=== PATIENT | male | born 1975 | race Caucasian/White ===

== ENCOUNTER 2016-05-30 05:02 | Inpatient (IN) | payer OTHER ==
[2016-05-10 10:55] LABS: BASO % 0.1 %; BASO ABS # 0.01 K/uL (0-0.2); COMPLETE YES; EOS % 0.8 %; HEMATOCRIT 47.6 % (42-52); IG% 0.3 %; LYMPH % 23.7 %; LYMPH ABS # 1.77 K/uL (1.2-3.4); MEAN CELL VOLUME 91.9 fL (80-100); MEAN CORPUSCULAR HGB CONC 35.9 g/dl (32-36); MEAN PLATELET VOLUME 11.1 fL (7.4-10.4); MONO % 8.8 %; NEUT % 66.3 %; PLATELET COUNT 244 K/uL (130-400); RED BLOOD COUNT 5.18 M/uL (4.7-6.1); WHITE BLOOD COUNT 7.48 K/uL (4.8-10.8)
[2016-05-18 10:12] VITALS: BMI 29.0
--- NOTE | 2016-05-26 12:19 | HISTORY & PHYSICAL EXAMINATION ---
DATE OF ADMISSION: 05/30/2016 He is being brought for surgery at [facility] 05/30/2016, posterior lumbar interbody fusion at L5-S1. CHIEF COMPLAINT: Back pain, lower extremity difficulty, neurologic issues, pain to the back and lower extremity, numbness and tingling as well. He demonstrated degenerative segment lumbar spine, disc herniation lumbar spine, all at the L5-S1 segment. He is being set up for elective surgery, posterior lumbar interbody fusion L5-S1. MEDICAL HISTORY: Negative for kidney disease, liver disease, hepatitis. No history of carcinoma. No difficulty with anesthesia. No obesity, hiatal hernia, acid reflux. No hypertension, COPD, diabetes mellitus or carcinoma. SURGERIES: Include left knee surgery. ALLERGIES: Negative. MEDICATIONS: Lisinopril and atorvastatin 20 mg. SOCIAL HISTORY: Minimal alcohol. No cigarette smoking. No illegal drug use. REVIEW OF SYSTEMS: Denies any blurred vision, double vision, tinnitus, vertigo, mentation issues. Denies chest pain or angina. Denies wheezing or shortness of breath. No nausea or vomiting. No bowel or bladder incontinence, urgency, frequency. He admits to back and lower extremity difficulty, mechanical in nature. OBJECTIVE EXAMINATION: GENERAL: He is alert, oriented. VITAL SIGNS: Blood pressure 130/80, pulse of 80, respiration rate 16, temperature 97.4. HEENT: Pupils react to light and accommodation. Ear, nose and throat clear. CARDIAC: Normal S1, S2. No S3. LUNGS: Clear to auscultation. NEUROLOGIC: Intact. Slight loss of sensation, but no gross motor loss. Reflex examination essentially normal. Images reviewed. He has severely degenerative segment L5-S1. He has loss of lordosis. There are some minor instability patterns, loss of good facet joints, plus a disc herniation on his MRI scan. PLAN: Includes posterior lumbar interbody fusion at L5-S1. I think the surgery will take about 2 hours. He will be in the hospital approximately 48 hours.
[2016-05-30] VITALS (11 sets, daily range): BP systolic 105–146; BP diastolic 60–85; PULSE 67–92; TEMP 36.4–36.9; O2SAT 94–98; Ht 180.3 cm; Wt 94.5 kg
[~2016-05-30] VITALS: Ht 180.3 cm; Wt 94.5 kg
[~2016-05-30 05:02] MED LIST: ATOR-22 PO; HYDR-5688 PO; LISI-791 PO; NAPR1TAB9 PO
[2016-05-30] MEDS ORDERED: LACTATED RINGER'S 1000ML 1,000 ML IV SCH (06:00)
[2016-05-30] MEDS ORDERED: CEFAZOLIN 2000 MG/60 ML D5W 60 ML IV SCH (06:00)
[2016-05-30] MEDS ORDERED: NSS 1000ML IV SCH (06:00)
[2016-05-30 06:20] LABS: BUN/CREATININE RATIO 10.8 (10-20); CALCIUM 8.9 mg/dl (8.5-10.1); CREATININE 1.4 mg/dl (0.60-1.40); POTASSIUM 3.8 mmol/L (3.5-5.1)
[2016-05-30] MEDS ORDERED: ROCURONIUM BROMIDE 10 MG/ML 5 ML VIAL ONE ×2 (06:39→08:04)
[2016-05-30] MEDS ORDERED: DEXAMETHASONE SOD INJ 4 MG/ML VIAL ONE (06:39)
[2016-05-30] MEDS ORDERED: ONDANSETRON INJ 2 MG/ML 2 ML VIAL ONE (06:39)
[2016-05-30] MEDS ORDERED: PROPOFOL IV EMULSION 10 MG/ML 20 ML VIAL IV ONE (06:39)
[2016-05-30] MEDS ORDERED: GLYCOPYRROLATE INJ 0.2 MG/ML VIAL ONE ×2 (06:39→07:59)
[2016-05-30] MEDS ORDERED: MIDAZOLAM HCL 1 MG/ML 2ML VIAL ONE (06:39)
[2016-05-30] MEDS ORDERED: NEOSTIGMINE METHYLSULFATE 5 MG/5 ML SYR ONE (06:39)
[2016-05-30] MEDS ORDERED: FENTANYL CITRATE INJ 50 MCG/1 ML 2 ML VIAL ONE ×3 (06:39→08:16)
[2016-05-30] MEDS ORDERED: THROMBIN FOR SOLN 20000 UNIT KIT ONE (06:48)
[2016-05-30] MEDS ORDERED: GELATIN SPONGE SZ 100 ONE (06:48)
[2016-05-30] MEDS ORDERED: BUPIVACAINE/EPINEPHRINE 0.5% MPF 1:200,000 30 ML VIAL ONE (06:49)
[2016-05-30] MEDS ORDERED: BACITRACIN 50000 UNIT VIAL ONE (06:49)
[2016-05-30] MEDS ORDERED: VANCOMYCIN HCL 1000MG/20ML VIAL ONE (06:49)
--- NOTE | 2016-05-30 07:02 | History & Physical Bridge Note ---
H&P Re-Evaluation Bridge Note: I have examined the patient, reviewed the History & Physical and in the interval since the performance of the History & Physical I have noted the following changes of clinical significance: No changes noted
[2016-05-30] MEDS ORDERED: HYDROmorphone INJ 1 MG/ML SYR IV PRN (08:45)
[2016-05-30] MEDS ORDERED: ATROPINE SULFATE 0.1 MG/ML 5ML SYR IV PRN (08:45)
[2016-05-30] MEDS ORDERED: ONDANSETRON INJ 2 MG/ML 2 ML VIAL IV PRN ×2 (08:45→10:15)
[2016-05-30] MEDS ORDERED: EpHEDrine SULFATE INJ 50 MG/ML AMP IV PRN (08:45)
[2016-05-30] MEDS ORDERED: PROMETHAZINE HCL INJ 6.25 MG in SODIUM CHLORIDE 0.9% 50ML 50 ML IV PRN (08:45)
--- NOTE | 2016-05-30 09:50 | DIAGNOSTIC IMAGING REPORT ---
INTRAOPERATIVE FLUOROSCOPIC IMAGES OF THE SPINE CLINICAL HISTORY: L5-S1 FUSION COMPARISON STUDY: MRI of the lumbar spine August 26, 2015. Fluoroscopy time: 3.3 seconds. FINDINGS: 1 fluoroscopic image demonstrates an L5-S1 discectomy with interbody spacer placement. There are pedicle screws at the L5 and S1 levels. Surgical retractors are noted. IMPRESSION: Intraoperative fluoroscopic image demonstrating an L5-S1 discectomy and pedicle screw fusion. Electronically signed by: Arturo Storey M.D. 05/30/2016 9:49 AM Dictated Date/Time: 05/30/2016 9:48 AM
--- NOTE | 2016-05-30 10:02 | [facility] Post Operative Brief Note ---
Immediate Operative Summary Operative Date May 30, 2016. Pre-Operative Diagnosis Disc Herniation, Severely Degenerative Segment L5-S1 Post-Operative Diagnosis Disc Herniation, Severely Degenerative Segment L5-S1 Procedure(s) Performed L5-S1 Decompression, Posterior Lumbar Instrumentation and Interbody Fusion Surgeon Dr. Huston Wire Harness Assembler Surgeon(s) MEG Dejesus Estimated Blood Loss 200 ml Findings as above Specimens none per surgeon Complication(s) None Disposition Recovery Room / PACU
[2016-05-30] MEDS ORDERED: SODIUM CHLORIDE 0.9% 1000ML 1,000 ML IV SCH (10:03)
[2016-05-30] MEDS ORDERED: MEPERIDINE HCL 25 MG/ML CARP ONE (10:08)
[2016-05-30] MEDS ORDERED: HYDROmorphone HCL 0.5MG/ML 50 ML CASSETTE ONE (10:13)
[2016-05-30] MEDS ORDERED: NALOXONE HCL 0.4 MG/1 ML VIAL/CARP IV PRN (10:15)
[2016-05-30] MEDS ORDERED: NAPROXEN PO SCH (10:15)
[2016-05-30] MEDS ORDERED: METOCLOPRAMIDE HCL INJ 5 MG/ML 2 ML VIAL IV PRN (10:15)
[2016-05-30] MEDS ORDERED: LORAZEPAM INJ 1 MG in SYRINGE 0 ML IV PRN (10:15)
[2016-05-30] MEDS: FENTANYL CITRATE INJ 50 MCG/1 ML 2 ML VIAL IV PRN ×4 (10:15→10:38)
[2016-05-30] MEDS ORDERED: ACETAMINOPHEN 325 MG TAB PO PRN (10:15)
[2016-05-30] MEDS ORDERED: PROMETHAZINE HCL INJ 12.5 MG in SODIUM CHLORIDE 0.9% 50ML 50 ML IV PRN (10:15)
[2016-05-30] MEDS ORDERED: LORAZEPAM 1 MG TAB PO PRN (10:15)
[2016-05-30] MEDS ORDERED: MAGNESIUM HYDROXIDE SUSP 30 ML UDC PO PRN (10:15)
[2016-05-30] MEDS ORDERED: MEPERIDINE HCL 25 MG/ML CARP IV PRN (10:30)
[2016-05-30 10:40] LABS: HEMATOCRIT 42.9 % (42-52)
--- NOTE | 2016-05-30 11:05 | Anesthesiology Progress Note ---
Anesthesia Post Op Note Date & Time May 30, 2016 at 11:05 Vital Signs Pain Intensity: 5 Vital Signs Past 12 Hours Date Time Temp Pulse Resp B/P Pulse Ox O2 Delivery O2 Flow Rate FiO2 05/30/16 10:55 37.8 68 16 131/71 99 Nasal Cannula 4 05/30/16 10:45 72 12 126/65 97 Nasal Cannula 4 05/30/16 10:35 71 12 131/66 99 Nasal Cannula 4 05/30/16 10:25 71 17 138/66 100 Mask 10 05/30/16 10:15 68 12 131/91 100 Mask 10 05/30/16 10:06 36.1 73 18 110/83 100 Mask 10 05/30/16 05:53 36.8 67 20 146/85 95 Room Air Notes Mental Status: alert / awake / arousable, participated in evaluation Pt Amnestic to Procedure: Yes Nausea / Vomiting: adequately controlled Pain: adequately controlled Airway Patency, RR, SpO2: stable & adequate BP & HR: stable & adequate Hydration State: stable & adequate Anesthetic Complications: no major complications apparent
[2016-05-30] MEDS: HYDROmorphone HCL 0.5MG/ML 50 ML CASSETTE IV PRN ×3 (11:11→23:15)
[2016-05-30] MEDS: SODIUM CHLORIDE 0.9% 1000ML 1,000 ML IV SCH ×2 (12:18→23:59)
[2016-05-30] MEDS: KETOROLAC TROMETHAMINE 30 MG/ML VIAL IV SCH ×2 (12:30→19:08)
--- NOTE | 2016-05-30 13:20 | OPERATIVE REPORT ---
DATE OF OPERATION: 05/30/2016 PREOPERATIVE DIAGNOSES: Degenerative segment, lumbar spine; instability, lumbar spine; and disk herniation, lumbar spine, L5-S1. POSTOPERATIVE DIAGNOSES: Same. PROCEDURES: Include a posterior lumbar spine decompression laminectomy L5-S1 and a posterior lumbar interbody fusion, L5-S1. SURGEON: Dr. Huston. SENIOR ACTUARIAL ANALYST: Yomi Stafford PA-C. COMPLICATIONS: No complications. BLOOD LOSS: 200 mL. We did an instrumented fusion, pedicle screw instrumentation and posterior lumbar interbody fusion at L5-S1. We used Globus implants. DESCRIPTION OF PROCEDURE: The patient was taken to the operating room and general intubated anesthetic provided to the patient, placed prone, prepped and draped sterile. We made a skin incision over the L5-S1 interval, dissecting the soft tissue, putting deep self-retaining retractors with using 3-inch and 2.5-inch retractor blades. We then did a formal decompression of laminectomy of L5, foraminotomy, and partial facetectomy of that segment. We then were able to safely get pedicle screws into the vertebral body of L5 and the sacral region. The fit was excellent. We retracted the dura on the left hand side. We were unsuccessful in getting really into the disk interval at this side. I abandoned this. I went to the right hand side. We carefully retracted the dura. I thought we really get into the disk and really clean out the disk and put an interbody spacer in this area. This was first packed with bone autograft and the intervertebral spacer or cage was 30 mm in length, 7 mm in height and 10 mm in width. We tightened down the construct. Everything was secured. We irrigated thoroughly with about 800 mL of fluid. We bone grafted once again out of the transverse processes and the sacral ala completing the 360 fusion. We closed over vancomycin powder over Hemovac drain with 1 Vicryl, 2-0 and 3-0 nylon on the skin. Sterile dressings applied. The patient was successfully returned to supine position to PACU stable. No apparent complications. I attest to the content of the Intraoperative Record and any orders documented therein. Any exceptio ns are noted below.
[2016-05-30] MEDS: CEFAZOLIN IV 2,000 MG in DEXTROSE 5% 50ML 50 ML IV SCH ×2 (19:08→23:59)
[2016-05-31] MEDS: KETOROLAC TROMETHAMINE 30 MG/ML VIAL IV SCH ×3 (00:33→11:23)
[2016-05-31] MEDS ORDERED: BISACODYL 10 MG SUPP PR PRN (06:00)
[2016-05-31] MEDS ORDERED: BISACODYL 5 MG TABEC PO PRN (06:00)
[2016-05-31] MEDS: HYDROmorphone HCL 0.5MG/ML 50 ML CASSETTE IV PRN (07:05)
[2016-05-31 07:42] VITALS: BP 115/68; PULSE 80; TEMP 36.7; O2SAT 97
--- NOTE | 2016-05-31 07:56 | PROGRESS NOTE ---
DATE: 05/31/2016 SUBJECTIVE: Moderate complaints of pain. Alert and oriented. No chest pain or shortness of breath. OBJECTIVE: Vitals signs are stable, 42.9 hematocrit. ASSESSMENT: Status post lumbar spine fusion one level fusion L5-S1. DISPOSITION: We will get him up and ambulatory today. Get rid of his Fry catheter. Discontinue his PCI pump ____ Tentatively home tomorrow.
[2016-05-31] MEDS ORDERED: OXYCODONE/ACETAMINOPHEN 5-325 TAB PO PRN (08:00)
[2016-05-31] MEDS ORDERED: HYDROmorphone INJ 2 MG/ML SYR/VIAL IV PRN (08:00)
[2016-05-31] MEDS ORDERED: DC PCA SCH (08:00)
[2016-05-31] MEDS ORDERED: HYDROmorphone INJ 1 MG/ML SYR IV PRN (08:00)
[2016-05-31] MEDS: CEFAZOLIN IV 2,000 MG in DEXTROSE 5% 50ML 50 ML IV SCH (08:43)
[2016-05-31] MEDS: ATORVASTATIN 20 MG TAB PO SCH (08:44)
[2016-05-31] MEDS: POLYETHYLENE (MIRALAX) 17 GM PACK PO SCH (08:44)
[2016-05-31] MEDS: LISINOPRIL 10 MG TAB PO SCH (08:44)
[2016-05-31] MEDS: SODIUM CHLORIDE 0.9% 1000ML 1,000 ML IV SCH ×2 (10:51→23:33)
--- NOTE | 2016-05-31 10:51 | Anesthesiology Progress Note ---
Anesthesia Post Op Note Date & Time May 31, 2016 at 10:50 Vital Signs Pain Intensity: 4.0 Vital Signs Past 12 Hours Date Time Temp Pulse Resp B/P Pulse Ox O2 Delivery O2 Flow Rate FiO2 05/31/16 09:59 Room Air 05/31/16 07:42 36.7 80 16 115/68 97 Room Air 05/30/16 23:50 Room Air 05/30/16 23:10 36.7 76 16 107/60 94 Room Air Notes Mental Status: alert / awake / arousable, participated in evaluation Pt Amnestic to Procedure: Yes Nausea / Vomiting: adequately controlled Pain: adequately controlled Airway Patency, RR, SpO2: stable & adequate BP & HR: stable & adequate Hydration State: stable & adequate Anesthetic Complications: no major complications apparent
[2016-05-31] MEDS: OXYCODONE/ACETAMINOPHEN 5-325 TAB PO PRN ×3 (10:52→21:32)
[2016-05-31 11:03] VITALS: BP 112/76; PULSE 92; TEMP 36.6; O2SAT 94
[2016-05-31 15:35] VITALS: BP 115/68; PULSE 77; TEMP 36.9; O2SAT 97
--- NOTE | 2016-05-31 15:48 | Discharge Instructions ---
Discharge Instructions Date of Service May 31, 2016. Admission Reason for Admission: Acute Back Pain W/Sciatica, Iv Disc Disorder W/Mye Discharge Discharge Diagnosis / Problem: spinal fusion Discharge Goals Goal(s): Improve function Activity Recommendations Activity Limitations: as noted below Lifting Limitations: until after follow-up appointment Exercise/Sports Limitations: until after follow-up appointment May Resume Sexual Activity: after follow-up appointment Shower/Bathe: keep incision dry Driving or Machine Use: . Instructions / Follow-Up Instructions / Follow-Up MEDICATIONS: Please take your prescriptions as instructed at your pre-op appointment. SPECIAL CARE: The following information is intended to answer some of the common questions and concerns regarding your surgery. Each patient is an individual and receives individual counselling throughout the course of treatment, from diagnosis to surgery all the way through recovery. What follows is not an exhaustive list, but should be a useful guide to some of the common questions and concerns patients have regarding their surgeries. These are not provided to keep you from calling us; rather, they give you something accurate and concrete to reference as you recover from your procedure. If you need us, we are available to you. As always, if you are not sure about something, call us at [phone]. MEDICAL EMERGENCIES: For these conditions, call 911 or go to your local hospital-based Emergency Department - not [facility] or equivalent. * Paralysis * Severe chest pain or difficulty breathing * Swelling or redness of either leg Spine procedures can be rather complex and though complications are rare, they do occur. In such cases, effective advice regarding emergency situations cannot always be addressed over the telephone. You may be referred to the emergency department for more effective management of your problem. Activity Limitations: It is important to give your body time to heal, so please limit your activities : * In general, don't do anything that moves your spine too much. You should avoid contact sports, twisting or heavy lifting while you recover. * 5-10 pounds is all you should attempt to lift. * You should not plan on driving for approximately 3 weeks and you should avoid traveling more than 30-45 minutes at a time. Longer trips should be broken down with walking breaks spaced appropriately. * Physical therapy is not usually required. * Walking and good posture practices will help you recover and regain your function. * Avoid straining or sudden changes in position. * In general, the goal is to take it easy and recover. Don't cause any new problems. Just relax. Showers: * Do not take a bath, use a Jacuzzi or hot tub or otherwise submerge your incision. * It is usually safe to take a shower 4-5 days after your surgery. * Your incision does not require any special creams or ointments. * Simply clean it with soap and water, dry and re-dress with a clean bandage afterwards. Incision: * Keep incision clean, dry and protected until your first follow-up appointment. * Some amount of drainage and redness is normal. Any drainage should be fairly clear and not have a foul odor. * If you feel anything is wrong or you have excessive drainage, please call us. * Your stitches and iesha will be removed 10-14 days after your surgery. At the time of your first post-op visit. * Neck surgeries are typically closed with a suture underneath the skin. The steri-strips over the incision should be maintained until we see you in the office. Bracing: * You may be provided with a back or neck brace to encourage good posture and prevent injury. It will remind you not to do too much as you heal and will alert others to the fact that you have had a surgery. * Back braces may be removed for showers and when you are resting at home. They must be worn when you are walking around for any period of time or for travel. * For neck surgery, you will likely be provided with two cervical collars. The soft collar ([place] or foam rubber) is worn most commonly throughout the day and while sleeping. The plastic collar (provided at the hospital) is for showering/bathing. * Except while eating, collars should remain in place. More specifically, bracing is provided for a purpose and should be worn. * Please obtain your brace or collars prior to your operation and bring them to the hospital with you on the day of surgery. * You should also bring your collars to your post-op appointment with Dr. Huston. You should always take good care of your body and practice healthy habits, especially following surgery. You should: * Follow your doctor's treatment plan * Sit and stand properly with good posture (ears over shoulders, shoulders over hips) Don't slouch * Learn to lift correctly * Exercise regularly (low-impact aerobic exercise is especially good, but check with your doctor first) * Generally, be up and walking for 5-10 minutes at a time at least 3-4 times per day from the day you get home * Increasing walking to tolerance until you can walk for 20-30 minutes at a time * Attain and maintain a healthy body weight * Eat healthy foods ( a well-balanced, low-fat diet rich in fruits and vegetables) and get enough calcium * Avoid excessive use of alcohol When to call our office - If you notice any of the following: * Increased pain not relieve by pain medicine * Fevers greater then 100 degrees F, chills or flu symptoms * Increased redness around incision * Drainage from the incision that is not clear * Any foul smelling drainage * Swelling or fluid collection beneath the skin Miscellaneous: * In the hospital, you may be given a walker or cane for support while walking. These are temporary needs and are intended to prevent injuries due to falls. You may discontinue them when you feel strong and steady enough on your feet. * Sleep in a comfortable position. We find that many patients find a lounge chair or recliner with several pillows to be beneficial in the early post-operative period. * The support stockings should be used for 7-10 days and may be discontinued when you are back to walking more and conducting usual household activities. No problem is insignificant. We are here to help you and get you well. Contact us at [phone]. Definitions: Foraminotomy: If part of the disc or a bone spur (osteophyte) is pressing on a nerve as it leaves the vertebra (through an exit called the foramen), a foraminotomy may be done. Otomy means "to make an opening." A foraminotomy is making the opening of the foramen larger, so the nerve can exit without being compressed. Laminotomy: Similar to the foraminotomy, a laminotomy makes a larger opening, this time in your bony plate protecting your spinal canal and spinal cord (the lamina). The lamina may be pressing on your nerve, so the surgeon may make more room for the nerves using a laminotomy. Laminectomy: Sometimes, a laminotomy is not sufficient. The surgeon may need to remove all or part of the lamina. This procedure is called a laminectomy. This can often be done at many levels without any harmful effects. Current Hospital Diet Patient's current hospital diet: Regular Diet Discharge Diet Recommended Diet: Regular Diet Procedures Procedures Performed: L5-S1 Decompression, Posterior Lumbar Instrumentation and Interbody Fusion Pending Studies Studies pending at discharge: no Medical Emergencies . Who to Call and When: Medical Emergencies: If at any time you feel your situation is an emergency, please call 911 immediately. . Non-Emergent Contact Non-Emergency issues call your: Surgeon Call Non-Emergent contact if: you have any medication questions . "Provider Documentation" section prepared by Samuel Huston. VTE Core Measure Inpt VTE Proph given/why not?: Treatment not indicated
[2016-05-31 23:28] VITALS: BP 129/72; PULSE 79; TEMP 37; O2SAT 98
[2016-06-01] MEDS: OXYCODONE/ACETAMINOPHEN 5-325 TAB PO PRN ×3 (02:10→12:05)
[2016-06-01 06:11] VITALS: BP 124/81; PULSE 83; TEMP 36.7; O2SAT 94
[2016-06-01] MEDS ORDERED: NURSING VERBAL MED ORDER ONE (07:30)
[2016-06-01] MEDS: POLYETHYLENE (MIRALAX) 17 GM PACK PO SCH (07:41)
[2016-06-01] MEDS: LISINOPRIL 10 MG TAB PO SCH (07:41)
[2016-06-01] MEDS: ATORVASTATIN 20 MG TAB PO SCH (07:42)
--- NOTE | 2016-06-01 08:18 | DISCHARGE SUMMARY ---
SUBJECTIVE: Minimal complaints of pain. Alert, oriented. Denies any chest pain or shortness of breath or calf tenderness. OBJECTIVE: Vital signs stable, alert, oriented. Neurologically intact, afebrile 36.7 temperature, 42.9 hematocrit. ASSESSMENT: Status post lumbar spine surgery, doing well short run. DISPOSITION: Will get him home later on today. Dressing change. He has instructions and precautions. He has prescriptions on his chart. Careful with bending, stooping and lifting and we will see him back in the office in approximately 10 days.
[2016-06-01 09:11] VITALS: BP 122/79; PULSE 85; O2SAT 95
[2016-06-01 10:33] VITALS: BP 122/79; PULSE 85; TEMP 36.7; O2SAT 95
== END 2016-06-01 13:10 | disposition home or self-care (01) | DRG 460 ==
LOC: ENRESERVDT → ENRESERVTM → C.ACU 05:02 → C.3E 10:07
PROVIDERS: ADMIT Orthopaedic Surgery Orthopaedic Surgery of the Spine; ATTEND Orthopaedic Surgery Orthopaedic Surgery of the Spine
PROC: 0SG3071 Fusion of Lumbosacral Joint with Autologous Tissue Substitute, Posterior Approach, Posterior Column, Open Approach (ICD-10-PCS; principal; 2016-05-30 07:15)
PROC: 0SB40ZZ Excision of Lumbosacral Disc, Open Approach (ICD-10-PCS; principal; 2016-05-30 07:15)
PROC: 0SG30AJ Fusion of Lumbosacral Joint with Interbody Fusion Device, Posterior Approach, Anterior Column, Open Approach (ICD-10-PCS; principal; 2016-05-30 07:15)
DX: M51.27 Other intervertebral disc displacement, lumbosacral region (principal); M51.37 Other intervertebral disc degeneration, lumbosacral region; M53.2X7 Spinal instabilities, lumbosacral region; I10 Essential (primary) hypertension; E78.5 Hyperlipidemia, unspecified; G47.33 Obstructive sleep apnea (adult) (pediatric); Z79.899 Other long term (current) drug therapy

== ENCOUNTER → 2016-06-07 | Outpatient (CLI) | payer OTHER ==
--- NOTE | 2016-06-07 12:29 | DIAGNOSTIC IMAGING REPORT ---
BILATERAL LOWER EXTREMITY VENOUS DOPPLER HISTORY: LEG SWELLING COMPARISON STUDY: None. FINDINGS: There is normal compressibility, flow, and augmentation within the bilateral lower extremity deep venous systems. IMPRESSION: No DVT within the right or left lower extremity. Electronically signed by: Cristhian Villa M.D. 06/07/2016 12:28 PM Dictated Date/Time: 06/07/2016 12:28 PM
== END | disposition home or self-care (01) ==
LOC: C.ULTR 11:50
PROVIDERS: ATTEND Orthopaedic Surgery Orthopaedic Surgery of the Spine
DX: M79.89 Other specified soft tissue disorders (principal); Z98.890 Other specified postprocedural states

== ENCOUNTER 2019-12-06 05:55 | Inpatient (IN) ==
[2019-12-06] MEDS ORDERED: ONDANSETRON INJ 2 MG/ML 2 ML VIAL IV STA ×2 (06:06→06:07)
[2019-12-06] MEDS ORDERED: SODIUM CHLORIDE 0.9% 500 ML IV STA (06:06)
[2019-12-06] MEDS ORDERED: HYDROmorphone INJ 0.5 MG/0.5 ML SYR IV STA (06:07)
[2019-12-06] MEDS ORDERED: SODIUM CHLORIDE 0.9% 1000ML 1,000 ML IV SCH (06:15)
[2019-12-06 06:29] LABS: Basophils # (auto) 0.01 K/uL (0-0.2); Basophils % (auto) 0.1 %; Hematocrit (blood only) 46.9 % (42-52); Hemoglobin 16.5 g/dL (14.0-18.0); Immature Granulocytes # (auto) 0.03 K/uL (0.00-0.02); Immature Granulocytes % (auto) 0.2 %; Lymphocytes # (auto) 0.66 K/uL (1.2-3.4); Lymphocytes % (auto) 4.6 %; Mean Corpuscular Hemoglobin 32.3 pg (25-34); Mean Corpuscular Hgb Conc 35.2 g/dL (32-36); Mean Corpuscular Volume 91.8 fL (80-100); Mean Platelet Volume 10.3 fL (7.4-10.4); Monocytes # (auto) 0.74 K/uL (0.11-0.59); Monocytes % (auto) 5.1 %; Neutrophils # (auto) 13.06 K/uL (1.4-6.5); Platelet Count 236 K/uL (130-400); RDW Coefficient of Variation 12.8 % (11.5-14.5); RDW Standard Deviation 42.9 fL (36.4-46.3); Red Blood Count 5.11 M/uL (4.7-6.1)
[2019-12-06 06:38] LABS: Appearance Urine Clear (Clear); Bacteria Urine Automated Negative (Negative); Blood Urine 1+ (Negative); Color Urine Orange; Glucose Urine UA Negative (Negative); Ketones Urine 1+ (Negative); Leukocyte Esterase Urine Negative (Negative); Nitrite Urine Negative (Negative); Protein Urine Trace (Negative); RBC Urine Automated 0-4 /hpf (0-4); Specific Gravity Urine 1.029 (1.000-1.030); Urobilinogen Urine Negative (Negative)
[2019-12-06] MEDS ORDERED: KETOROLAC TROMETHAMINE 15 MG/ML VIAL IV ONE (06:44)
[2019-12-06 06:51] LABS: Bilirubin Urine Negative (Negative); Ictotest Urine Negative (Negative)
[2019-12-06 06:59] LABS: Albumin Level 3.8 gm/dl (3.4-5.0); BUN Creatinine Ratio 12.4 (10-20); Creatinine Clr Calc Pharmacy 81.8 ml/min; Est GFR (African American) 71.1; Est GFR (Non-African American) 61.3; Potassium 3.7 mmol/L (3.5-5.1)
[2019-12-06 07:02] LABS: Albumin Globulin Ratio 1.1 (0.9-2); Globulin 3.5 gm/dl (2.5-4.0); Total Protein 7.3 gm/dl (6.4-8.2)
--- NOTE | 2019-12-06 07:16 | CT Scan Report ---
CT OF THE ABDOMEN AND PELVIS WITHOUT CONTRAST CLINICAL HISTORY: LLQ abd pain, tachycardia COMPARISON STUDY: CT of the abdomen and pelvis June 23, 2009. KUB June 03, 2015. TECHNIQUE: Axial images of the abdomen and pelvis were obtained without IV contrast. Images were revi ewed in the axial, sagittal, and coronal planes. Automated exposure control was utilized for the nicholas dy. A dose lowering technique was utilized adhering to the principles of ALARA. FINDINGS: Note is made of small bilateral renal calculi. There are no ureteral calculi. There is no h ydronephrosis or hydroureter. There is fatty infiltration liver. No biliary or pancreatic ductal dila tation is noted. The caliber of small large bowel are normal. The appendix is normal. Note is made of sigmoid diverticulosis. There is moderate wall thickening of the proximal sigmoid colon with moderat e adjacent infiltration and fluid. There are several locules of extraluminal gas. No fluid collection is identified to suggest an abscess. No suspicious osseous lesion is noted. Postoperative findings w ithin the lumbosacral spine are incidentally noted. IMPRESSION: 1. Findings consistent with perforated acute sigmoid diverticulitis. Several locules of extraluminal gas with moderate pericolonic inflammation and fluid. No abscess. Follow-up nonemergent colonoscopy o nce symptoms resolve is recommended to exclude the less likely possibility of an underlying mass. 2. Bilateral nephrolithiasis. No ureteral calculi. 3. Fatty infiltration of the liver. ACT 112: Negative or not required by law. Electronically signed by: Arturo Storey M.D. 12/06/2019 7:14 AM
[2019-12-06] MEDS ORDERED: PIPERACILL/TAZOBAC CONSULT ACTIVE PRN ×2 (07:32→09:10)
[2019-12-06] MEDS ORDERED: PIPERACILLIN/TAZOBACTAM 4.5 GM/120 ML BAG IV ONE (07:32)
--- NOTE | 2019-12-06 08:00 | Surgery Consultation ---
Date of Consultation December 06, 2019 Assessment & Plan (1) Diverticulitis: Patient with acute diverticulitis with contained perforation Would continue with bowel rest and ice chips for approximately 48 hours then possibly clear liquids IV antibiotics-he is currently on Zosyn We will continue to monitor him-he may need repeat CAT scan depending on his progress Normally he would need at least 4 to 5 days of IV antibiotics possibly longer Then discharged on oral antibiotics We will check his history of colonoscopy-likely will need a repeat in 6 to 8 weeks History of Present Illness History of Present Illness 44-year-old male presenting to the emergency room with lower abdominal pain and bloating He underwent CAT scan of the abdomen showing acute diverticulitis with contained perforation His white blood cell count is 14.5 He apparently has had a colonoscopy in the past approximately 4 years prior here at the hospital Allergies Allergy/AdvReac Type Severity Reaction Status Date / Time No Known Allergies Allergy Verified 12/06/19 06:19 Home Medications Home Medications Medication Instructions Recorded Confirmed Type acetaminophen [Tylenol Extra 500 - 1,000 mg PO DIRECTED PRN 12/06/19 12/06/19 History Strength] atorvastatin 20 mg PO QAM 12/06/19 12/06/19 History lisinopril 10 mg PO QAM 12/06/19 12/06/19 History naproxen-diphenhydramine [Aleve PM] 1 - 2 tab PO HS 12/06/19 12/06/19 History Patient History Medical History (Updated 12/06/19 @ 07:57 by Nigel Gerard MD, FACS) Hyperlipidemia Hypertension Lumbar disc disease with radiculopathy Multiple nevi Nocturnal hypoxemia MICH (obstructive sleep apnea) Personal history of gout Right-sided sensorineural hearing loss Surgical History History of adenoidectomy History of arthroscopy of right knee Dec 2001 History of ear surgery tube placement age 6 Family History Father Colonic polyp Dyslipidemia Mother Family history of uterine cancer metastatic endometrial cancer Diabetes Hypertension Social History Smoking Status: Never smoker Hx Alcohol Use: Yes Alcohol type: beer, wine and hard liquor Hx Substance Use: No Preferred Language: Yoruba Communication Ability: Effective Visual Impairment: No Limitations Hearing Ability: Normal Sexual Assault Counsellor Required: No marital status: Current Living Situation: Spouse and Family current occupational status: employed Feels Safe at Home: Yes Childhood Exposure to Second-Hand Smoke: Yes caffeine: No Dental Care, Regularly: Yes Physical Activity Frequency: Other Physical Activity Frequency Comment: sometimes Seatbelt Use: always Sunscreen Use: Yes Review of Systems Review of Systems: All systems reviewed & are unremarkable except as noted in HPI & below Physical Exam Physical Exam: Patient is awake and alert in his ER bed in no distress His abdomen is relatively soft with lower abdominal pain to palpation Some bowel sounds but decreased Constitutional: well developed and well nourished; no acute distress Eyes: + anicteric sclerae Respiratory: normal respiratory effort; no respiratory distress Cardiovascular: Rate/Rhythm: regular rate Musculoskeletal: Head/Neck/Chest: head atraumatic Skin: no rashes, warm and dry Neurologic: awake Psychiatric: Orientation: alert Results & Data ([place]) Vital Signs (Past 12 Hours) Vital Signs Temp Pulse Pulse Resp BP BP Pulse Ox 12/06/19 07:17 107 H 20 125/78 95 12/06/19 06:26 115 H 29 H 86 L 12/06/19 06:22 115 H 27 H 127/76 88 L 12/06/19 06:00 37.5 C 130 H 20 127/78 95 PG Care Time/CCT Total # of Minutes Spent Total Time Spent with Patient: Total time spent is greater than 50% in coordination of care (as documented) at patient's floor/unit and/or counseling patient: Coding Level of Care Code 56891 Inpt Consult Level 4 Diagnoses Diverticulitis K57.92
--- NOTE | 2019-12-06 08:12 | Emergency Department Note ---
Impression & Plan Diverticulitis of colon with perforation ED Provider Note INFORMANT: Patient ED PROVIDER(S): Samuel Rachel MD CHIEF COMPLAINT: Left lower quadrant abdominal pain PLAN: Disposition: Admitted Condition: Good MEDICAL DECISION MAKING: The patient presented with left lower quadrant abdominal pain. Blood work was obtained. He had a slight leukocytosis. The remainder of his chemistries were unremarkable. The patient's urinalysis did not show any clear sign of infection. There was +[address] imaging of the abdomen and pelvis. This revealed findings very concerning for perforated diverticulitis without abscess. The patient did receive Dilaudid and Toradol for pain. He was started on IV Zosyn. [facility] I also discussed the case with Dr. Gerard of general surgery. The patient will be admitted by internal medicine for further management. Triage Nursing notes reviewed and agree them. Vital Signs: reviewed and remarkable for tachycardia Differential diagnosis: Diverticulitis, appendicitis, testicular torsion, infections, UTI, obstruction, mesenteric ischemia, aortic pathology, inflammatory bowel disease, renal colic, PUD, pancreatitis, biliary pathology, hernia, volvulus, constipation, as well as other pathologies. Diagnostics interpreted by me: ECG:Rate: 124 Rhythm: Sinus tachycardia Moodus: Normal QRS: Normal ST segements: No elevation or depression Other: No PACs or PVCs Cardiac Monitoring: Cardiac monitoring ordered by me: The patient was placed on continuous cardiac monitoring and observed. It revealed a normal sinus rhythm at 92 beats per minute without ectopy or evidence of dysrhythmia. Imaging studies: CT scan of the abdomen pelvis reveals perforated diverticulitis. I refer to the EMR for further details. Consultation(s): General surgery, [facility]ard [facility], HPI: The patient is a 44 year old male who presents to the Emergency Room with complaints of left lower quadrant abdominal pain. This started the day before yesterday and is worsening. The patient also notes the following associated symptoms, transient nausea and back pain. The patient has found no relieving factors. Current pain is rated as an 8/10. Patient also notes some urinary discomfort. Pt denies LOC, headache, fevers, chills, diaphoresis, visual changes, neck pain, chest pain, breathing difficulties, vomiting, melena, hematochezia, numbness, weakness, lymphadenopathy, rash, or other complaints. ROS: See above HPI for pertinent positives & negatives. A total of 10 systems reviewed and were otherwise negative. PAST MEDICAL HISTORY:See Below, hypertension PAST SURGICAL HISTORY:See Below FAMILY HISTORY:See Below, diverticulitis SOCIAL HISTORY:See Below, employed HOME MEDICATIONS:See Below ALLERGIES:See Below VITALS:See Below PHYSICAL EXAMINATION: GENERAL: Awake, alert, uncomfortable-appearing, in no distress HENT: Normocephalic, atraumatic. Oropharynx unremarkable. EYES: Normal conjunctiva. Sclera non-icteric. NECK: Inspection normal. Non-tender. Supple. No nuchal rigidity. FROM. No masses. RESPIRATORY: Clear to auscultation. No wheezes. No rales. Normal respiratory effort. CARDIAC: Normal rate. Normal rhythm. No murmurs. No rubs. Extremities warm and well perfused. Pulses equal. No JVD. GI: Soft, non-distended. Left lower quadrant tenderness to palpation. Mild rebound and guarding. No masses. RECTAL: Deferred. MUSCULOSKELETAL: Atraumatic. Chest examination reveals no tenderness. The back is symmetrical on inspection without obvious abnormality. There is no CVA tenderness to palpation. No joint edema. LOWER EXTREMITIES: Calves are equal size bilaterally and non-tender. No edema. No discoloration. NEURO: Normal sensorium. No sensory or motor deficits noted. SKIN: No rash or jaundice noted. ED COURSE: Critical Care: I have personally spent greater than 31 minutes of critical care time in the direct management of this patient. This includes bedside care, interpretation of diagnostic studies, and testing, discussion with consultants, patient, and other required patient management activities. These minutes are in excess of all separately billable procedures. Samuel Rachel MD Past Med/Surg History Medical History (Updated 12/06/19 @ 08:06 by Samuel Rachel MD) Hyperlipidemia Hypertension Lumbar disc disease with radiculopathy Multiple nevi Nocturnal hypoxemia MICH (obstructive sleep apnea) Personal history of gout Right-sided sensorineural hearing loss Surgical History History of adenoidectomy History of arthroscopy of right knee Dec 2001 History of ear surgery tube placement age 6 Family History Father Colonic polyp Dyslipidemia Mother Family history of uterine cancer metastatic endometrial cancer Diabetes Hypertension Social History Smoking Status: Never smoker Second Hand Exposure: No; Do You Dip or Chew Tobacco: Yes (has not chewed for 20 yrs); Tobacco Cessation Education Requested by Patient: No Hx Alcohol Use: Yes Alcohol type: beer and hard liquor Hx Substance Use: No Preferred Language: Citizen Of [place] Communication Ability: Effective Visual Impairment: No Limitations Hearing Ability: Normal Dosier Operator Required: No Beliefs That Will Affect Care: None marital status: Current Living Situation: Spouse Current Living Situation Comment: lives with and son current occupational status: employed Other Information That Helps Us Care for You: No Feels Safe at Home: Yes Safety Concerns: Feels Safe At This Time Childhood Exposure to Second-Hand Smoke: Yes caffeine: No Dental Care, Regularly: Yes Physical Activity Frequency: Other Physical Activity Frequency Comment: sometimes Seatbelt Use: always Sunscreen Use: Yes Assistive Devices: CPAP Allergies Allergies Allergy/AdvReac Type Severity Reaction Status Date / Time No Known Allergies Allergy Verified 12/06/19 06:19 Home Meds Home Medications Medication Instructions Recorded Confirmed acetaminophen [Tylenol Extra 500 - 1,000 mg PO DIRECTED PRN 12/06/19 12/06/19 Strength] atorvastatin 20 mg PO QAM 12/06/19 12/06/19 lisinopril 10 mg PO QAM 12/06/19 12/06/19 naproxen-diphenhydramine [Aleve PM] 1 - 2 tab PO HS 12/06/19 12/06/19 Results & Data (ED) Vital Signs Vital Signs - 24 hr 12/06/19 06:00 12/06/19 06:22 12/06/19 06:26 Temperature 37.5 C Temperature Source Oral Pulse Rate 130 H 115 H 115 H Pulse Rate [Left Finger] Pulse Rate from SpO2 Sensor 115 H 114 H Respiratory Rate 20 27 H 29 H Respiratory Effort / Characteristics Respiratory Depth Normal Blood Pressure 127/78 127/76 Blood Pressure [Left Arm] Blood Pressure Mean 94 91 Blood Pressure Mean [Left Arm] Pulse Oximetry 95 88 L 86 L Oxygen Delivery Method Room Air Nasal Cannula Nasal Cannula Oxygen Flow Rate 2 2 Sepsis Recent Fever Within 48 Hours No Sepsis New/Unexplained Change in Mental Status N/A Sepsis Action Taken by Nursing No Action Required 12/06/19 07:17 12/06/19 08:00 Temperature Temperature Source Pulse Rate 103 H Pulse Rate [Left Finger] 107 H Pulse Rate from SpO2 Sensor 103 H Respiratory Rate 20 22 Respiratory Effort / Characteristics Non-Labored Respiratory Depth Normal Blood Pressure 145/80 H Blood Pressure [Left Arm] 125/78 Blood Pressure Mean 89 Blood Pressure Mean [Left Arm] 93 Pulse Oximetry 95 92 Oxygen Delivery Method Room Air Room Air Oxygen Flow Rate Sepsis Recent Fever Within 48 Hours Sepsis New/Unexplained Change in Mental Status Sepsis Action Taken by Nursing Laboratory Data Result diagrams: 12/06/19 09:41 12/06/19 09:41 Lab Results 12/06/19 12/06/19 12/06/19 Range/Units 06:15 06:15 06:15 WBC 14.50 H (4.8-10.8) K/uL RBC 5.11 (4.7-6.1) M/uL Hgb 16.5 (14.0-18.0) g/dL Hct 46.9 (42-52) % MCV 91.8 (80-100) fL MCH 32.3 (25-34) pg MCHC 35.2 (32-36) g/dL RDW Std Deviation 42.9 (36.4-46.3) fL RDW Coeff of Ruddy 12.8 (11.5-14.5) % Plt Count 236 (130-400) K/uL MPV 10.3 (7.4-10.4) fL Immature Gran % (Auto) 0.2 % Neut % (Auto) 90.0 % Lymph % (Auto) 4.6 % [place] % (Auto) 5.1 % Eos % (Auto) 0.0 % Baso % (Auto) 0.1 % Neut # (Auto) 13.06 H (1.4-6.5) K/uL Lymph # (Auto) 0.66 L (1.2-3.4) K/uL [place] # (Auto) 0.74 H (0.11-0.59) K/uL Eos # (Auto) 0.00 (0-0.5) K/uL Baso # (Auto) 0.01 (0-0.2) K/uL Immature Gran # (Auto) 0.03 H (0.00-0.02) K/uL Sodium 136 (136-145) mmol/L Potassium 3.7 (3.5-5.1) mmol/L Chloride 105 (98-107) mmol/L Carbon Dioxide 23 (21-32) mmol/L Anion Gap 8.0 (3-11) BUN 17 (7-18) mg/dl Creatinine 1.38 (0.6-1.4) mg/dl Est Cr Clr Drug Dosing 81.8 ml/min Est GFR ( Amer) 71.1 Est GFR (Non-Af Amer) 61.3 BUN/Creatinine Ratio 12.4 (10-20) Glucose 130 H (70-99) mg/dl Calcium 9.0 (8.5-10.1) mg/dl Total Bilirubin 2.0 H (0.2-1) mg/dl AST 19 (15-37) U/L ALT 31 (12-78) U/L Alkaline Phosphatase 54 (45-117) U/L Total Protein 7.3 (6.4-8.2) gm/dl Albumin 3.8 (3.4-5.0) gm/dl Globulin 3.5 (2.5-4.0) gm/dl Albumin/Globulin Ratio 1.1 (0.9-2) Lipase 72 L (73-393) U/L Urine Color [place] Urine Appearance Clear (Clear) Urine pH 5.0 (4.5-7.5) Ur Specific [place] 1.029 (1.000-1.030) Urine Protein Trace H (Negative) Urine Glucose (UA) Negative (Negative) Urine Ketones 1+ H (Negative) Urine Blood 1+ H (Negative) Urine Nitrite Negative (Negative) Urine Bilirubin Negative (Negative) Urine Urobilinogen Negative (Negative) Ur Leukocyte Esterase Negative (Negative) Urine WBC (Auto) 1-5 (0-5) /hpf Urine RBC (Auto) 0-4 (0-4) /hpf U Hyaline Cast (Auto) 1-5 (0-5) /lpf U Epithel Cells (Auto) 10-20 H (0-5) /lpf Urine Bacteria (Auto) Negative (Negative) Administered Medications Enoxaparin Sodium (Enoxaparin Inj 40 Mg/0.4 Ml Syr) 40 mg SQ Q24H BALTA Stop: 01/05/20 09:59 Last Admin: 12/06/19 10:11 Dose: 40 mg Documented by: [id number] Piperacillin Sod/Tazobactam (Sod 3.375 gm/ Dextrose) 115 mls @ 28.75 mls/hr IV Q8H BALTA; Protocol Stop: 12/16/19 11:59 Last Admin: 12/06/19 12:11 Dose: 28.8 mls/hr Documented by: [id number] Lactated Ringer's (Lr) 1,000 mls @ 125 mls/hr IV .Q8H BALTA Stop: 01/05/20 09:09 Last Infusion: 12/06/19 14:16 Dose: 125 mls/hr Documented by: [id number] Admin: 12/06/19 10:08 Dose: 125 mls/hr Documented by: [id number] Ketorolac Tromethamine (Ketorolac Tromethamine 15 Mg/Ml Vial) 15 mg IV Q6H PRN PRN Reason: Pain moderate Stop: 12/11/19 09:09 Last Admin: 12/06/19 11:59 Dose: 15 mg Documented by: [id number] Discontinued Medications Hydromorphone HCl (Hydromorphone Inj 0.5 Mg/0.5 Ml Syr) 0.5 mg IV NOW STA Stop: 12/06/19 06:08 Last Admin: 12/06/19 06:14 Dose: 0.5 mg Documented by: [id number] Sodium Chloride (Nss) 500 mls @ 999 mls/hr IV .Q31M STA Stop: 12/06/19 06:36 Last Admin: 12/06/19 06:15 Dose: Not Given Documented by: [id number] Sodium Chloride (Nss 1000ml) 1,000 mls @ 999 mls/hr IV .Q1H1M BALTA Stop: 12/06/19 07:15 Last Infusion: 12/06/19 07:03 Dose: 0 mls/hr Documented by: [id number] Admin: 12/06/19 06:15 Dose: 999 mls/hr Documented by: [id number] Piperacillin Sod/Tazobactam Sod (Zosyn) 4.5 gm in 120 mls @ 240 mls/hr IV NOW ONE Stop: 12/06/19 08:01 Last Infusion: 12/06/19 08:19 Dose: 0 mls/hr Documented by: [id number] Admin: 12/06/19 07:44 Dose: 240 mls/hr Documented by: [id number] Ketorolac Tromethamine (Ketorolac Tromethamine 15 Mg/Ml Vial) 10 mg IV NOW ONE Stop: 12/06/19 06:45 Last Admin: 12/06/19 07:03 Dose: 10 mg Documented by: [id number] Ondansetron HCl (Ondansetron Inj 2 Mg/Ml 2 Ml Vial) 4 mg IV NOW STA Stop: 12/06/19 06:07 Last Admin: 12/06/19 06:15 Dose: Not Given Documented by: [id number] Ondansetron HCl (Ondansetron Inj 2 Mg/Ml 2 Ml Vial) 4 mg IV NOW STA Stop: 12/06/19 06:08 Last Admin: 12/06/19 06:14 Dose: 4 mg Documented by: [id number] Discharge Plan Visit Data Chief Complaint: Abdominal Pain Stated Complaint: ABD PAIN ED Provider: Samuel Rachel Discharge Problem: Diverticulitis of colon with perforation Patient Disposition: Admitted As Inpatient Discharge Instructions Interventions: ED Discharge Assessment Last Done: 12/06/19 08:52
[2019-12-06] MEDS ORDERED: MoRPHine SULFATE 2 MG/ML CARP IV PRN (09:10)
[2019-12-06] MEDS ORDERED: ONDANSETRON INJ 2 MG/ML 2 ML VIAL IV PRN (09:10)
[2019-12-06] MEDS ORDERED: MoRPHine SULFATE 4 MG/ML 1 ML CARP\\VIAL IV PRN (09:10)
[2019-12-06 09:52] LABS: Hematocrit (blood only) 42.4 % (42-52); Hemoglobin 14.9 g/dL (14.0-18.0); Immature Granulocytes # (auto) 0.05 K/uL (0.00-0.02); Immature Granulocytes % (auto) 0.3 %; Lymphocytes # (auto) 0.72 K/uL (1.2-3.4); Lymphocytes % (auto) 4.5 %; Mean Corpuscular Hemoglobin 32.5 pg (25-34); Mean Corpuscular Hgb Conc 35.1 g/dL (32-36); Mean Corpuscular Volume 92.6 fL (80-100); Mean Platelet Volume 10.1 fL (7.4-10.4); Monocytes # (auto) 1.19 K/uL (0.11-0.59); Monocytes % (auto) 7.4 %; Neutrophils # (auto) 14.18 K/uL (1.4-6.5); Neutrophils % (auto) 87.8 %; Platelet Count 180 K/uL (130-400); RDW Coefficient of Variation 12.9 % (11.5-14.5); RDW Standard Deviation 43.5 fL (36.4-46.3); Red Blood Count 4.58 M/uL (4.7-6.1); White Blood Count 16.14 K/uL (4.8-10.8)
[2019-12-06] MEDS: LACTATED RINGER'S 1,000 ML IV SCH ×2 (10:08→18:05)
[2019-12-06] MEDS: ENOXAPARIN INJ 40 MG/0.4 ML SYR SQ SCH (10:11)
[2019-12-06 10:17] LABS: BUN Creatinine Ratio 11.1 (10-20); Creatinine Clr Calc Pharmacy 72.9 ml/min; Est GFR (African American) 61.7; Est GFR (Non-African American) 53.3; Potassium 4.2 mmol/L (3.5-5.1)
[2019-12-06] MEDS: KETOROLAC TROMETHAMINE 15 MG/ML VIAL IV PRN ×2 (11:59→18:07)
[2019-12-06] MEDS: PIPERACILLIN/TAZOBACTAM 3.375 GM in DEXTROSE 5% 100 ML IV SCH ×2 (12:11→20:15)
--- NOTE | 2019-12-06 13:33 | Medical Student H&P ---
Date of Service December 06, 2019 Assessment & Plan (1) Diverticulitis of colon with perforation: 1) Diverticulitis w/ perforation- hemodynamically stable, no rebound tenderness on exam -NPO/bowel rest for 48 hrs per Gen Surg followed by transition to clears as tolerated -Antibiotic tx w. Zosyn 3.375g IV q8hr with goal of transition to PO abx after inflammation and abdominal pain is stabilized. -IVF of LR 125ml/hr -Pain control w/ morphine and toradol PRN -IV Tylenol prn for fever -Repeat CBC and BMP in AM to trend leukocytosis and slightly elevated Cr. -Gen surg consulted -Consider reimaging if failure to improve clinically in 2-3 days. 2) HTN -Hold lisinopril 10mg PO until PO intake tolerated -Hydralazine prn 3) Hyperlipidemia -Hold atorvastatin 20mg PO until PO intake tolerated 4) MICH -Home CPAP Fluids: LR 125ml/hr NPO DVT prophylaxis: lovenox Full Code Admission and Anticipated Discharge Date Admission Date: December 06, 2019 History of Present Illness Chief Complaint: Abdominal pain Primary Care Provider: Frank Hanson MD Mr. Simmons is a 44 y/o male with a past medical history of HTN, HLD, MICH who presents with 24 hours of RLQ abdominal pain. He stated that yesterday morning he woke up with a sharp, 10/10 intermittent pain that he described as occurring behind his belt buckle and eventually spread to RLQ. His pain was increased with pressure and bearing down to urinate. He took Tylenol and Aleve PM but did not feel any improvement. The only similar pain he experienced that was similar was when he previously passed a kidney stone but he stated that unlike his current pain, that pain radiated to his back. He had one small episode of loose stool d escribed as yellow and mucinous. He attempted to vomit to improve his pain but was unsuccessful. He denies any history of GI issues. He stated had a colonoscopy four years ago at age 40 due to early presentation of colon disease in his father, previous records were not able to be located. He stated that he felt it was normal. In the ED he had and EKG showing sinus tachycardia, CT imaging suggesting findings consistent with perforated acute sigmoid diverticulitis without abscesses. Several locules of extraluminal gas with moderate pericolonic inflammation and fluid. In addition bilateral nephrolithiasis w/o ureteral calculi. He was hemodynamically stable and labs suggesting a leukocytosis of 16. Allergies Allergy/AdvReac Type Severity Reaction Status Date / Time No Known Allergies Allergy Verified 12/06/19 06:19 Home Medications Home Medications Medication Instructions Recorded Confirmed Type acetaminophen [Tylenol Extra 500 - 1,000 mg PO DIRECTED PRN 12/06/19 12/06/19 History Strength] atorvastatin 20 mg PO QAM 12/06/19 12/06/19 History lisinopril 10 mg PO QAM 12/06/19 12/06/19 History naproxen-diphenhydramine [Aleve PM] 1 - 2 tab PO HS 12/06/19 12/06/19 History Past Med/Surg History Medical History (Updated 12/06/19 @ 08:06 by Samuel Rachel MD) Hyperlipidemia Hypertension Lumbar disc disease with radiculopathy Multiple nevi Nocturnal hypoxemia MICH (obstructive sleep apnea) Personal history of gout Right-sided sensorineural hearing loss Surgical History History of adenoidectomy History of arthroscopy of right knee Dec 2001 History of ear surgery tube placement age 6 Family History Father Colonic polyp Dyslipidemia Mother Family history of uterine cancer metastatic endometrial cancer Diabetes Hypertension Social History Smoking Status: Never smoker Second Hand Exposure: No; Do You Dip or Chew Tobacco: Yes (has not chewed for 20 yrs); Tobacco Cessation Education Requested by Patient: No Hx Alcohol Use: Yes Alcohol type: beer and hard liquor Hx Substance Use: No Preferred Language: [place]ames[place] Communication Ability: Effective Visual Impairment: No Limitations Hearing Ability: Normal Community Health Planning Director Required: No Beliefs That Will Affect Care: None marital status: Current Living Situation: Spouse Current Living Situation Comment: lives with and son current occupational status: employed Other Information That Helps Us Care for You: No Feels Safe at Home: Yes Safety Concerns: Feels Safe At This Time Childhood Exposure to Second-Hand Smoke: Yes caffeine: No Dental Care, Regularly: Yes Physical Activity Frequency: Other Physical Activity Frequency Comment: sometimes Seatbelt Use: always Sunscreen Use: Yes Assistive Devices: None Review of Systems + fever, + chills and + anorexia; no weakness no cough, no dyspnea, no dyspnea on exertion and no hemoptysis no chest pain, no dyspnea, no orthopnea, no palpitations and no edema + abdominal pain and + nausea; no hematemesis, no dysphagia and no melena Physical Exam Constitutional: Gentleman appears stated age, resting comfortably in bed. In no acute distress Eyes: PERRL, conjunctivae normal, anicteric sclerae ENMT: external ear and nose normal, oropharynx normal Respiratory: Lungs are clear to auscultation bilaterally, no wheezes, rales or rhonchi. Normal work of breathing. Cardiovascular: Regular rate and rhythm, no murmurs rubs or extra heart duane nds. No peripheral edema. No JVD Gastrointestinal (Abdomen): Hypoactive bowel sounds throughout abdomen. Tender to palpation in RLQ, no rebound tenderness throughout abdomen. No hepatosplenomegaly. Musculoskeletal: no cyanosis or clubbing, extremities motor strength 5/5 Skin: no rashes, warm and dry Psychiatric: A+Ox3, euthymic affect Results & Data ([facility]) Vital Signs (Past 12 Hours) Vital Signs Temp Pulse Pulse Resp BP BP Pulse Ox 12/06/19 09:11 37.4 C 100 H 18 121/70 97 12/06/19 08:30 108 H 18 146/91 H 94 12/06/19 08:00 103 H 22 145/80 H 92 12/06/19 07:17 107 H 20 125/78 95 12/06/19 06:26 115 H 29 H 86 L 12/06/19 06:22 115 H 27 H 127/76 88 L 12/06/19 06:00 37.5 C 130 H 20 127/78 95 Results BMP Results: Sodium 137 mmol/L (136-145) 12/06/19 Potassium 4.2 mmol/L (3.5-5.1) 12/06/19 Chloride 104 mmol/L (98-107) 12/06/19 BUN 17 mg/dl (7-18) 12/06/19 Creatinine 1.55 mg/dl (0.6-1.4) H 12/06/19 Glucose 115 mg/dl (70-99) H 12/06/19 Code Status & VTE Plan VTE Prophylaxis Plan VTE Prophylaxis will be ordered: Yes Supervising Attestation I personally examined the patient and verified all barnett points of history and exam, discussed case, and agree with decision making with Ban Fall MS4. belly pain but not really progressing. otherwise feels ok vitals noted nad heent nc at mmm breathing unlabored no accessory muscles good effort abd soft mild distention periumbilical --> LLQ tenderness but fortunately no guarding no rebound no rigidity. perforated diverticulitis - zosyn, supportive care, NPO, serial exams otherwise as above
[2019-12-06] MEDS: ACETAMINOPHEN 1000 MG/100 ML IV IV PRN ×2 (15:50→23:46)
[2019-12-06] MEDS ORDERED: hydrALAZINE HCL 20 MG/ML VIAL IV PRN (15:52)
--- NOTE | 2019-12-06 18:30 | Billing Data ---
Date of Service December 06, 2019 Coding Level of Care Code 02841 Initial Inpt Care Lvl 3
--- NOTE | 2019-12-06 22:27 | Electrocardiogram Report ---
Test Reason : Blood Pressure : / mmHG Vent. Rate : 124 BPM Atrial Rate : 124 BPM P-R Int : 156 ms QRS Dur : 082 ms QT Int : 302 ms P-R-T Axes : 022 018 063 degrees QTc Int : 433 ms Sinus tachycardia Nonspecific T wave abnormality Abnormal ECG When compared with ECG of 30-MAY-2016 06:10, Vent. rate has increased BY [address] no longer elevated in Lateral leads Nonspecific T wave abnormality now evident in Inferior leads Nonspecific T wave abnormality, worse in Lateral leads Confirmed by Raleigh Guzman ([id number]) on 12/06/2019 10:26:29 PM Referred By: REFERRED SELF Confirmed By:Raleigh Guzman
[2019-12-07] MEDS: LACTATED RINGER'S 1,000 ML IV SCH ×3 (01:07→16:50)
[2019-12-07] MEDS: KETOROLAC TROMETHAMINE 15 MG/ML VIAL IV PRN ×3 (04:56→21:40)
[2019-12-07] MEDS: PIPERACILLIN/TAZOBACTAM 3.375 GM in DEXTROSE 5% 100 ML IV SCH ×3 (04:57→20:37)
[2019-12-07 06:29] LABS: Basophils # (auto) 0.01 K/uL (0-0.2); Basophils % (auto) 0.1 %; Eosinophils # (auto) 0.02 K/uL (0-0.5); Eosinophils % (auto) 0.1 %; Hematocrit (blood only) 41.5 % (42-52); Hemoglobin 14.1 g/dL (14.0-18.0); Immature Granulocytes # (auto) 0.03 K/uL (0.00-0.02); Immature Granulocytes % (auto) 0.2 %; Lymphocytes # (auto) 0.61 K/uL (1.2-3.4); Lymphocytes % (auto) 4.2 %; Mean Corpuscular Hemoglobin 31.9 pg (25-34); Mean Corpuscular Volume 93.9 fL (80-100); Mean Platelet Volume 10.4 fL (7.4-10.4); Monocytes % (auto) 6.9 %; Neutrophils # (auto) 12.92 K/uL (1.4-6.5); Neutrophils % (auto) 88.5 %; Platelet Count 180 K/uL (130-400); RDW Coefficient of Variation 13.1 % (11.5-14.5); RDW Standard Deviation 45.1 fL (36.4-46.3); Red Blood Count 4.42 M/uL (4.7-6.1); White Blood Count 14.59 K/uL (4.8-10.8)
--- NOTE | 2019-12-07 06:31 | Surgery Progress Note ---
Date of Service December 07, 2019 Assessment & Plan (1) Diverticulitis: Continue bowel rest with ice only today Continue IV Zosyn Allow patient to ambulate Check a.m. labs as ordered Patient may require 5 to 7 days of IV antibiotics and then even possible home IV antibiotics with a PICC line Depending on progress and abscess formation Also may need an ID consult depending on his progress Admission and Anticipated Discharge Date Admission Date: December 06, 2019 Subjective Patient did have a fever now afebrile He does not seem to have more pain He is having loose bowel movements Review of Systems Review of Systems: All systems reviewed & are unremarkable except as noted in HPI & below Physical Exam Physical Exam: Patient's abdomen is flat and soft with some tenderness to deep palpation in the lower left abdomen Constitutional: no acute distress Eyes: + anicteric sclerae Respiratory: normal respiratory effort; no respiratory distress Cardiovascular: Rate/Rhythm: regular rate Musculoskeletal: Head/Neck/Chest: head atraumatic Skin: no rashes, warm and dry Neurologic: awake Psychiatric: Orientation: alert Results & Data ([facility]) Vital Signs (Past 12 Hours) Vital Signs Temp Pulse Resp BP Pulse Ox 12/07/19 01:09 37.5 C 12/06/19 23:11 38.5 C H 99 H 18 124/67 92 12/06/19 19:21 37.6 C H 103 H 18 122/80 96 PG Care Time/CCT Total # of Minutes Spent Total Time Spent with Patient: Total time spent is greater than 50% in coordination of care (as documented) at patient's floor/unit and/or counseling patient: Coding Level of Care Code 09957 Inpt Consult Level 3 Diagnoses Diverticulitis K57.92
[2019-12-07 07:00] LABS: BUN Creatinine Ratio 12.4 (10-20); Calcium 8.7 mg/dl (8.5-10.1); Creatinine Clr Calc Pharmacy 78.4 ml/min; Est GFR (African American) 67.5; Est GFR (Non-African American) 58.2; Potassium 4.1 mmol/L (3.5-5.1)
--- NOTE | 2019-12-07 07:50 | Hospitalist Progress Note ---
Date of Service December 07, 2019 Assessment & Plan (1) Diverticulitis of colon with perforation: 44 yo M PMHx HTN, MICH on CPAP admitted for diverticulitis with contained perforation. Diverticulitis w/ contained perforation: - Admitted for abdominal pain and tachycardia and found on CT to have findings consistent with perforated acute sigmoid diverticulitis. - Radiology report states several locules of extraluminal gas with moderate pericolonic inflammation and fluid, though no abscess. - General Surgery consulted and appreciate recommendations: - IV Abx, currently on Zosyn q8h. Likely 4-5 days of IV Abx prior to transition to PO. - LR 125ml/hr. - NPO except ice chips for a total of 48 hours, then advance diet as tolerated. - Morphine. Tylenol, Toradol PRN ordered for pain and fever. - Patient with improvement in symptoms today and afebrile, abdominal pain is decreased in severity and isolated to lower abdomen as opposed to diffuse throughout. - WBC downtrending. - Follow CBC, BMP daily. - Will require repeat CT if does not continue to improve to assess for abscess formation. - Will also require colonoscopy 6-8 weeks following discharge. HTN: - Hold lisinopril while NPO. - Hydralazine 10mg IV q4h PRN SBP >180. Hyperlipidemia: - Hold atorvastatin while NPO. MICH: - Continue home CPAP. Code Status: FULL CODE FENGI: LR 125ml/hr, ice chips DVT prophylaxis: Lovenox Dispo: Med/Surg (2) Hyperlipidemia: (3) MICH (obstructive sleep apnea): (4) Hypertension: Admission and Anticipated Discharge Date Admission Date: December 06, 2019 Supervising Physician Co-Signing Physician Notes I personally examined the patient and verified all barnett points of history and exam, discussed case, and agree with decision making with Dr Dwan. feels about the same. pain migrates a little although still really all in lower abd/left lower abd - mostly before he's going to have BM vitals noted nad heent nc at mmm breathing unlabored no accessory muscles good effort abd soft mild distention periumbilical --> LLQ tenderness but fortunately no guarding no rebound no rigidity. perforated diverticulitis - continue zosyn, supportive care, NPO x ice, serial exams, appears stable otherwise as above Subjective Patient without acute events overnight. Tolerating pain well with PRN pain medications. No nausea or vomiting. Several episodes of loose stools overnight; abdominal pain appears to precede bowel movements and then will feel fairly comfortable following for a few hours. Today patient reports that his abdominal pain yesterday was diffuse throughout his abdomen, and now today is exclusive to bilateral lower quadrants. Pavo "a little sweaty" overnight, and this AM without measured fevers. No chest pain or trouble breathing. Has some abdominal pain with deep breaths. Review of Systems Review of Systems: All systems reviewed & are unremarkable except as noted in HPI & below Constitutional: + sweats; no fever, no chills and no malaise Respiratory: no cough and no dyspnea Cardiovascular: no chest pain, no palpitations and no edema Gastrointestinal: + abdominal pain (lower quadrants) and + diarrhea/loose stools; no nausea, no vomiting, no constipation and no blood in stools Physical Exam Constitutional: WD/WN, vitals as above Eyes: PERRL, conjunctivae normal, anicteric sclerae ENMT: external ear and nose normal, oropharynx normal Neck: normal visual inspection Respiratory: normal respiratory effort, lungs clear to auscultation Cardiovascular: RRR, no murmur, no edema Gastrointestinal (Abdomen): Inspection/Auscultation: normal bowel sounds; abdomen not distended Percussion/Palpation: + abdomen tender (bilateral lower quadrants, L>R) and abdomen soft Musculoskeletal: Extremities: no cyanosis and no clubbing Skin: no rashes, warm and dry Neurologic: Normal speech Psychiatric: A+Ox3, euthymic affect Results & Data Results & Data ([facility]) Vital Signs (Past 12 Hours) Vital Signs Temp Pulse Resp BP Pulse Ox 12/07/19 07:20 37.2 C 94 H 16 118/74 94 12/07/19 01:09 37.5 C 12/06/19 23:11 38.5 C H 99 H 18 124/67 92 Resident Activity Tracking Resident Involvement: Resident Care Provided Care Provided: Adult Hospital Medicine (1) Hyperlipidemia Hyperlipidemia type: mixed hyperlipidemia Qualified Code(s): E78.2 - Mixed hyperlipidemia (2) Hypertension Hypertension type: essential hypertension Qualified Code(s): I10 - Essential (primary) hypertension
[2019-12-07] MEDS: ACETAMINOPHEN 1000 MG/100 ML IV IV PRN ×2 (08:55→17:26)
[2019-12-07] MEDS: ENOXAPARIN INJ 40 MG/0.4 ML SYR SQ SCH (10:36)
--- NOTE | 2019-12-07 19:13 | Billing Data ---
Date of Service December 07, 2019 Coding Level of Care Code 05488 Subseq Hosp Care Lvl 3
[2019-12-08] MEDS: LACTATED RINGER'S 1,000 ML IV SCH ×2 (00:26→09:56)
[2019-12-08] MEDS: ACETAMINOPHEN 1000 MG/100 ML IV IV PRN ×3 (01:36→16:33)
[2019-12-08] MEDS: PIPERACILLIN/TAZOBACTAM 3.375 GM in DEXTROSE 5% 100 ML IV SCH ×3 (05:03→19:49)
[2019-12-08] MEDS: KETOROLAC TROMETHAMINE 15 MG/ML VIAL IV PRN (05:03)
[2019-12-08 06:26] LABS: Eosinophils # (auto) 0.06 K/uL (0-0.5); Eosinophils % (auto) 0.5 %; Hematocrit (blood only) 39.2 % (42-52); Hemoglobin 13.2 g/dL (14.0-18.0); Immature Granulocytes # (auto) 0.03 K/uL (0.00-0.02); Immature Granulocytes % (auto) 0.2 %; Lymphocytes # (auto) 0.77 K/uL (1.2-3.4); Lymphocytes % (auto) 6.1 %; Mean Corpuscular Hemoglobin 31.8 pg (25-34); Mean Corpuscular Hgb Conc 33.7 g/dL (32-36); Mean Corpuscular Volume 94.5 fL (80-100); Mean Platelet Volume 10.5 fL (7.4-10.4); Monocytes # (auto) 0.83 K/uL (0.11-0.59); Monocytes % (auto) 6.5 %; Neutrophils # (auto) 10.99 K/uL (1.4-6.5); Neutrophils % (auto) 86.7 %; Platelet Count 187 K/uL (130-400); RDW Coefficient of Variation 12.9 % (11.5-14.5); RDW Standard Deviation 44.9 fL (36.4-46.3); Red Blood Count 4.15 M/uL (4.7-6.1); White Blood Count 12.68 K/uL (4.8-10.8)
--- NOTE | 2019-12-08 06:54 | Surgery Progress Note ---
Date of Service December 08, 2019 Assessment & Plan (1) Diverticulitis of colon with perforation: We will advance patient to clear liquids Advancing diet very slowly Continue IV antibiotic Continue IV pain meds for now Patient will need at least 5 to 7 days of IV antibiotics possibly longer No plan for repeat CT scan yet Admission and Anticipated Discharge Date Admission Date: December 06, 2019 Subjective Temp seems to have stayed down-he does feel like he had some sweats Pain is somewhat less Review of Systems Review of Systems: All systems reviewed & are unremarkable except as noted in HPI & below Physical Exam Physical Exam: Abdomen is nondistended Constitutional: well developed; no acute distress Eyes: + anicteric sclerae Respiratory: normal respiratory effort; no respiratory distress Cardiovascular: Rate/Rhythm: regular rate Musculoskeletal: Head/Neck/Chest: head atraumatic Skin: no rashes, warm and dry Neurologic: awake Psychiatric: Orientation: alert Results & Data ([facility]) Vital Signs (Past 12 Hours) Vital Signs Temp Pulse Resp BP Pulse Ox 12/07/19 23:25 37.3 C 90 20 131/78 96 PG Care Time/CCT Total # of Minutes Spent Total Time Spent with Patient: Total time spent is greater than 50% in coordination of care (as documented) at patient's floor/unit and/or counseling patient: Coding Level of Care Code 41819 Subseq Hosp Care Lvl 3 Diagnoses Diverticulitis of colon with perforation K57.20
[2019-12-08 06:57] LABS: Albumin Level 2.3 gm/dl (3.4-5.0); BUN Creatinine Ratio 14.1 (10-20); Calcium 8.8 mg/dl (8.5-10.1); Creatinine Clr Calc Pharmacy 88.9 ml/min; Est GFR (African American) 78.6; Est GFR (Non-African American) 67.8; Potassium 3.8 mmol/L (3.5-5.1)
[2019-12-08 07:18] LABS: Albumin Globulin Ratio 0.6 (0.9-2); Bilirubin,Total 1.2 mg/dl (0.2-1); Globulin 3.9 gm/dl (2.5-4.0); Total Protein 6.2 gm/dl (6.4-8.2)
--- NOTE | 2019-12-08 07:59 | Hospitalist Progress Note ---
Date of Service December 08, 2019 Assessment & Plan (1) Diverticulitis of colon with perforation: 44 yo M PMHx HTN, MICH on CPAP admitted for diverticulitis with contained perforation. This morning with acute worsening of his symptoms, to OR for urgent bowel resection. Diverticulitis w/ worsening perforation and pneumoperitoneum: - Admitted for abdominal pain and tachycardia and found on CT to have findings consistent with perforated acute sigmoid diverticulitis. - Radiology report stated several locules of extraluminal gas with moderate pericolonic inflammation and fluid, though no abscess. - WBCs continue to downtrend on IV antibiotics. - General surgery on board, patient was tolerating ice chips, IV fluids, Zosyn until this morning upon which time he presented with acute abdomen. - Stat CTAP IV contrast showed progressive perforation of the acute sigmoid diverticulitis with pneumoperitoneum scattered throughout the abdomen and pelvis. There is a 5.9 x 1.9 cm developing abscess within the left lower quadrant. - For laparotomy and bowel resection today. Continue IV Zosyn. Continued care per general surgery recommendations. - Follow CBC, BMP daily. - Will require colonoscopy in the outpatient setting after resolution of acute illness. HTN: - Hold lisinopril at this time given normotensive. - Hydralazine 10mg IV q4h PRN SBP >180. Hyperlipidemia: - Resume home atorvastatin. MICH: - Continue home CPAP. Code Status: FULL CODE FENGI: LR 125ml/hr, NPO DVT prophylaxis: Holding Lovenox at this time pending surgery Dispo: Med/Surg (2) Hyperlipidemia: (3) MICH (obstructive sleep apnea): (4) Hypertension: Admission and Anticipated Discharge Date Admission Date: December 06, 2019 Supervising Physician Co-Signing Physician Notes I personally examined the patient and verified all barnett points of history and exam, discussed case, and agree with decision making with Dr Leach. d/w dr leach this AM - based on her description and exam - agreed stat CT and surgery re-eval - then dr lewis saw and pt promptly taken to OR. seen post op - pain doing OK now. feeling better overall than before. updated extensively on what happened and roughly what was done in OR and plan moving forward. he expressed good understanding vitals noted nad fatigued NGT w some bloody outpt heent nc at mmm breathing unlabored abd soft nd no guarding/rebound/rigidity perforated diverticulitis - was doing well on IV abx then rapidly deteriorated over about an hour from when seen by dr lewis to when seen by dr leach. fortunately caught promptly and pt to OR before a septic deterioration could occur. does, of course, have sepsis related to perforated diverticulitis and now peritonitis, but definitely could have been much worse. continue post op care, continue IV abx. supportive care. otherwise as above Subjective Patient without acute events overnight, was afebrile through the night as well. Seen by surgery this morning around 6:30 AM and at that time was doing well and plan was to advance to [facility]. This morning at 9 AM I was called to patient's bedside due to complaints of acute severe pain that the patient reports is "just as bad if not worse than when I came in". No complaints of nausea at that time. Patient was writhing in his bed and abdomen was acutely tender and firm as compared to exam yesterday. General surgery was called and urgent CT scan was ordered. Scan showed progressive perforation with pneumoperitoneum and general surgery will take to the OR urgently today for bowel resection. Review of Systems Review of Systems: All systems reviewed & are unremarkable except as noted in HPI & below Constitutional: + sweats and + malaise; no fever and no chills Respiratory: no cough and no dyspnea Cardiovascular: no chest pain, no palpitations and no edema Gastrointestinal: + abdominal pain (Worse as compared to yesterday in all quadrants) and + diarrhea/loose stools; no nausea, no vomiting, no constipation and no blood in stools Physical Exam Constitutional: well developed, + acute distress and + ill appearing Eyes: + anicteric sclerae Respiratory: normal respiratory effort, lungs clear to auscultation Cardiovascular: RRR, no murmur, no edema Gastrointestinal (Abdomen): Hypoactive bowel sounds. Abdomen mildly distended, firm, and diffusely tender worst in left lower quadrant. Guarding but no rebound. Skin: no rashes, warm and dry Results & Data Results & Data ([facility]) Vital Signs (Past 12 Hours) Vital Signs Temp Pulse Resp BP Pulse Ox 12/08/19 07:17 36.9 C 95 H 16 131/79 92 12/07/19 23:25 37.3 C 90 20 131/78 96 Resident Activity Tracking Resident Involvement: Resident Care Provided Care Provided: Adult [facility] Medicine (1) Hyperlipidemia Hyperlipidemia type: mixed hyperlipidemia Qualified Code(s): E78.2 - Mixed hyperlipidemia (2) Hypertension Hypertension type: essential hypertension Qualified Code(s): I10 - Essential (primary) hypertension
[2019-12-08] MEDS ORDERED: IOVERSOL 100ml IV ONE (08:55)
--- NOTE | 2019-12-08 09:05 | CT Scan Report ---
ABDOMEN AND PELVIS CT WITH IV CONTRAST CT DOSE: 784.10 mGy.cm HISTORY: Left lower quadrant pain. acute abdomen TECHNIQUE: Multiaxial CT images of the abdomen and pelvis were performed following the use of intrave nous contrast. A dose lowering technique was utilized adhering to the principles of ALARA. COMPARISON STUDY: Abdomen and pelvis CT 12/06/2019. FINDINGS: Trace bilateral pleural effusions. Small of consolidation within the lower lobes posteriorl y favors atelectasis. Posterior decompression and fusion at L5-S1. Small fat-containing bilateral ing uinal hernias. The bladder is decompressed and not well visualized. Normal appendix. No evidence for bowel obstruction. Mild hepatic steatosis. The gallbladder, pancreas, spleen, and adrenal glands unre markable. No hydronephrosis. No retroperitoneal lymphadenopathy. Normal caliber abdominal aorta. Inte rval progression of the acute sigmoid diverticulitis. There is no evidence for perforation with a sma ll amount of pneumoperitoneum seen within the abdomen. There is a small developing abscess within the left lower quadrant best seen image 75 which measures 5.9 x 1.9 cm. Progressive inflammatory changes seen within the left lower quadrant and surrounding the acute sigmoid diverticulitis. Trace pelvic f ree fluid. IMPRESSION: 1. Progressive perforation of the acute sigmoid diverticulitis which results in the pneumoperitoneum scattered throughout the abdomen and pelvis. There is a 5.9 x 1.9 cm developing abscess within the le ft lower quadrant. Surgical consultation recommended. 2. Trace bilateral pleural effusions. 3. Hepatic steatosis. 4. The bilateral nephrolithiasis is better appreciated on the prior CT examination. ACT 112: Negative or not required by law. Electronically signed by: Cristhian Villa M.D. 12/08/2019 9:03 AM
[2019-12-08] MEDS ORDERED: GLYCOPYRROLATE 0.2 MG/ML VIAL ONE (09:59)
[2019-12-08] MEDS ORDERED: ONDANSETRON INJ 2 MG/ML 2 ML VIAL ONE (09:59)
[2019-12-08] MEDS ORDERED: NEOSTIGMINE METHYLSULFATE 5 MG/5 ML SYR ONE (09:59)
[2019-12-08] MEDS ORDERED: LIDOCAINE HCL 2% 2 ML VIAL/AMP(20MG/ML) INFIL ONE (09:59)
[2019-12-08] MEDS ORDERED: fentaNYL citrate 100 MCG/2 ML VIAL ONE (09:59)
[2019-12-08] MEDS ORDERED: PROPOFOL IV EMULSION 10 MG/ML 20 ML VIAL IV ONE (09:59)
[2019-12-08] MEDS ORDERED: MIDAZOLAM HCL 1 MG/ML 2ML VIAL ONE (09:59)
[2019-12-08] MEDS ORDERED: DEXAMETHASONE SOD INJ 4 MG/ML VIAL ONE (09:59)
[2019-12-08] MEDS ORDERED: HYDROmorphone INJ 2 MG/ML SYR/VIAL IV PRN ×2 (10:31→14:18)
[2019-12-08] MEDS ORDERED: ATROPINE SULFATE 0.1 MG/ML 10ML SYR IV PRN (10:31)
[2019-12-08] MEDS ORDERED: ONDANSETRON INJ 2 MG/ML 2 ML VIAL IV PRN ×2 (10:31→14:18)
[2019-12-08] MEDS ORDERED: fentaNYL citrate 100 MCG/2 ML VIAL IV PRN (10:31)
[2019-12-08] MEDS ORDERED: PROMETHAZINE HCL 12.5 MG in SODIUM CHLORIDE 0.9% 50 ML IV PRN ×2 (10:31→14:18)
[2019-12-08] MEDS ORDERED: ePHEDrine sulfate 50 MG/ML AMP IV PRN (10:31)
--- NOTE | 2019-12-08 10:31 | Anesthesiology Consultation ---
Date of Service December 08, 2019 Assessment & Plan ASA [id number] Proposed Anesthesia Anesthesia Type: General Risk / Benefits Reviewed With: PT / POA / Parent / Guardian, Accepts Plan and Informed Consent Obtained History Surgery Operation Date: 12/08/19 08:50 Proposed Procedures p Laparotomy , Bowel Resection - Nigel Gerard MD, FACS Height/Weight Height: 5 ft 11 in Weight: 101 kg Allergies Allergy/AdvReac Type Severity Reaction Status Date / Time No Known Allergies Allergy Verified 12/06/19 06:19 Medications Home Medications Medication Instructions Recorded Confirmed Last Taken acetaminophen [Tylenol Extra 500 - 1,000 mg PO DIRECTED PRN 12/06/19 12/06/19 12/05/19 Strength] 500 MG atorvastatin 20 mg PO QAM 12/06/19 12/06/19 12/05/19 lisinopril 10 mg PO QAM 12/06/19 12/06/19 12/05/19 naproxen-diphenhydramine [Aleve PM] 1 - 2 tab PO HS 12/06/19 12/06/19 12/05/19 2 TABS Active Medications Generic Name Dose Route Start Last Admin Trade Name Freq PRN Reason Stop Dose Admin Acetaminophen 1,000 mg 12/06/19 15:27 12/08/19 09:38 Acetaminophen 1000 Mg/100 Ml Iv IV 12/09/19 15:26 1,000 mg Q8H PRN Administration Fever Piperacillin Sod/Tazobactam 115 mls @ 28.75 mls/hr 12/06/19 12:00 12/08/19 09:11 Sod 3.375 gm/ Dextrose IV 12/16/19 11:59 Infused Q8H BALTA Infusion Protocol Lactated Ringer's 1,000 mls @ 125 mls/hr 12/06/19 09:10 12/08/19 09:56 Lr IV 01/05/20 09:09 125 mls/hr .Q8H BALTA Administration Ketorolac Tromethamine 15 mg 12/06/19 09:10 12/08/19 05:03 Ketorolac Tromethamine 15 Mg/Ml Vial IV 12/11/19 09:09 15 mg Q6H PRN Administration Pain moderate Morphine Sulfate 4 mg 12/06/19 09:10 12/08/19 08:10 Morphine Sulfate 4 Mg/Ml 1 Ml Carp\Vial IV 12/20/19 09:09 4 mg Q4 PRN Administration Pain severe NPO Date Last Intake of Fluids: 12/06/19 Time Last Intake of Fluids: 05:00 Last Intake of Fluids Comment: did have some ice chips last evening Date Last Intake of Solids: 12/05/19 Time Last Intake of Solids: 20:00 Past Medical History Medical History Hyperlipidemia Hypertension Lumbar disc disease with radiculopathy Multiple nevi Nocturnal hypoxemia MICH (obstructive sleep apnea) Personal history of gout Right-sided sensorineural hearing loss Exercise / Class Metabolic Activity II 4-5 Yardwork/Stairs/Walk up hill Past Family History Family History Father Colonic polyp Dyslipidemia Mother Family history of uterine cancer metastatic endometrial cancer Diabetes Hypertension Past Surgical History Surgical History History of adenoidectomy History of arthroscopy of right knee Dec 2001 History of ear surgery tube placement age 6 Past Anesthesia History No Hx of Anesthesia Complications and No Family Hx of Anesthesia Complications History of PONV No Hx of PONV and No Hx of Motion Sickness Social History Smoking Status: Never smoker Do You Dip or Chew Tobacco: Yes (has not chewed for 20 yrs) Hx Alcohol Use: Yes Alcohol type: beer and hard liquor alcohol intake frequency: holidays/special occasions only Hx Substance Use: No Review of Systems denies fever/cough/ colds/ chest pain/ SOB/ MICH Constitutional: no fever and no chills Respiratory: no cough and no dyspnea denies MICH Cardiovascular: no chest pain and no dyspnea on exertion Physical Exam Vital Signs Last Vital Signs Temp 37.8 C H 12/08/19 09:13 Pulse 108 H 12/08/19 09:13 Resp 18 12/08/19 09:13 BP 139/84 12/08/19 09:13 Pulse Ox 93 12/08/19 09:13 ENMT Mouth: no TMJ abnormality and no dentition abnormality Thyromental Distance: > or= 3.5 Finger Breadths Mallampati Class: II Neck neck extension not limited Respiratory normal respiratory effort; no respiratory distress Auscultation: lungs clear to auscultation bilaterally Cardiovascular Rate/Rhythm: regular rate and regular rhythm Neurologic moves all extremities Psychiatric Orientation: alert and oriented x 3 Testing Laboratory Results 12/08/19 05:57 12/08/19 05:57 Urine Color [place] 12/06/19 06:15 Urine Appearance Clear (Clear) 12/06/19 06:15 Urine pH 5.0 (4.5-7.5) 12/06/19 06:15 Ur Specific [place] 1.029 (1.000-1.030) 12/06/19 06:15 Urine Protein Trace (Negative) H 12/06/19 06:15 Urine Glucose (UA) Negative (Negative) 12/06/19 06:15 Urine Ketones 1+ (Negative) H 12/06/19 06:15 Urine Nitrite Negative (Negative) 12/06/19 06:15 Ur Leukocyte Esterase Negative (Negative) 12/06/19 06:15 Urine WBC (Auto) 1-5 /hpf (0-5) 12/06/19 06:15 Urine RBC (Auto) 0-4 /hpf (0-4) 12/06/19 06:15 U Hyaline Cast (Auto) 1-5 /lpf (0-5) 12/06/19 06:15 U Epithel Cells (Auto) 10-20 /lpf (0-5) H 12/06/19 06:15 Urine Bacteria (Auto) Negative (Negative) 12/06/19 06:15
[2019-12-08] MEDS ORDERED: BUPIVACAINE 0.5 % 5 MG/1 ML MPF 30ML VIAL ONE (10:59)
[2019-12-08] MEDS ORDERED: HYDROmorphone INJ 2 MG/ML SYR/VIAL ONE (11:07)
[2019-12-08] MEDS ORDERED: ACETAMINOPHEN 1,000 MG/100 ML VIAL IV ONE (12:54)
--- NOTE | 2019-12-08 12:54 | Post Operative Brief Note ---
PG Immediate Post Op with CF Date of Surgery December 08, 2019 Pre & Post Diagnosis Operation Date: 12/08/19 08:50 Pre-Op Diagnosis: PERFORATED DIVERTICULITIS Post-Op Diagnosis: PERFORATED DIVERTICULITIS, abscess, peritonitis I identified the patient and participated in the time-out.: Yes Procedure Operation Date: 12/08/19 08:50 Actual Procedures p Laparotomy , Bowel Resection(Not Applicable) - Nigel Gerard MD, FACS abdominal washout, end colostomy Surgeon Nigel Gerard MD, FACS Ct Manager Efe Choi Estimated Blood Loss 50 Findings Consistent with Post-Op Diagnosis Specimens Specimen Description: Microbilology #1 Peritoneal fluid Gram stain, Routine culture and sentivity and anaerobic and arerobic Microbilology #2 Peritoneal fluid Gram stain, Routine culture and sentivity and anaerobic and arerobic Permanent Specimen A: Sigmoid Colon Silk proximal Drains Fry Catheter (16 FR Fry insterted without difficulty draining clear yellow, anesthesia monitoring output)
--- NOTE | 2019-12-08 13:55 | Anesthesiology Progress Note ---
Date of Service December 08, 2019 Anesthesia Post Procedure Vital Signs Vital Signs: Temp Pulse Pulse Resp BP Pulse Ox 12/08/19 13:37 93 H 17 133/86 93 12/08/19 13:27 96 H 14 125/82 94 12/08/19 13:17 105 H 15 125/82 93 12/08/19 13:07 37.1 C 117 H 20 131/91 94 12/08/19 09:13 37.8 C H 108 H 18 139/84 93 12/08/19 07:17 36.9 C 95 H 16 131/79 92 12/07/19 23:25 37.3 C 90 20 131/78 96 12/07/19 15:40 36.5 C 107 H 18 139/79 95 Pain Intensity Left Abdomen: Pain Intensity: 0 Transfer of Care Handoff Completed per policy Notes Mental Status: alert / awake / arousable and participated in evaluation Patient Amnestic to Procedure: Yes Nausea / Vomiting: adequately controlled Pain: adequately controlled Airway Patency, RR, SpO2: stable & adequate BP & HR: stable & adequate Hydration State: stable & adequate Anesthetic Complications: no major complications apparent and Pt Satisfied with anesthetic care
[2019-12-08] MEDS ORDERED: PROMETHAZINE HCL 25 MG in SODIUM CHLORIDE 0.9% 50 ML IV PRN (14:18)
[2019-12-08] MEDS ORDERED: HYDROmorphone INJ 1 MG/ML SYRINGE IV PRN (14:18)
[2019-12-08] MEDS: NSS + 20MEQ KCL 20 MEQ/1,000 ML BAG IV SCH ×2 (14:29→22:50)
[2019-12-08] MEDS: HYDROmorphone INJ 0.5 MG/0.5 ML SYR IV PRN ×2 (14:33→20:52)
--- NOTE | 2019-12-08 17:43 | Billing Data ---
Date of Service December 08, 2019 Coding Level of Care Code 61193 Subseq Hosp Care Lvl 3
--- NOTE | 2019-12-08 20:05 | Operative Report (OR) ---
DATE OF OPERATION: 12/08/2019 NAME OF OPERATION: Exploratory laparotomy with sigmoid colectomy and end colostomy with abdominal washout. PREOPERATIVE DIAGNOSES: Perforated diverticulitis with peritonitis and intra-abdominal abscess. POSTOPERATIVE DIAGNOSES: Perforated diverticulitis with peritonitis and intra-abdominal abscess. STAFF SURGEON: Nigel Gerard MD. DOUBLE END SEWER: Little Choi PA-C. ANESTHESIA: General. FINDINGS: The patient had peritonitis. He had findings of a purulent abscess, purulent ascites, severe perforated sigmoid diverticulitis, significant intraabdominal adipose tissue and induration with inflammation. DESCRIPTION OF PROCEDURE: The patient was brought in the operating room and placed on the operating table in supine position. His abdomen was prepped and draped in the usual fashion. Fry catheter was placed. Pneumatic stockings and nasogastric tube were placed. My music library assistant helped with prepping, draping, sigmoid colectomy, colostomy and closure of the wound. A midline incision was made in the lower abdomen carrying dissection down into the abdomen. The patient was somewhat tight because of his musculature. He had a significant amount of adipose tissue intraabdominally. His sigmoid colon was extremely inflamed. We did encounter a significant abscess and purulent fluid at the level of the umbilicus where the proximal sigmoid had perforated. This was irrigated and drained. It was also cultured. Then the rectosigmoid was transected using the DAVIDE stapler and then with some difficulty, the sigmoid colon was mobilized. This was because of the severe inflammation and induration over to the descending colon. A segment of sigmoid colon was removed, marked with a silk suture proximal. The left colon was then mobilized and brought out through the left abdominal wall as an end colostomy. It did appear to be viable. It was secured to the fascia using 0 chromic suture and to the skin using 2-0 chromic suture. It had been oversewn and then the suture removed. The abdomen was washed out with Mefoxin saline solution. A 19 round Eme[place] drain placed into the pelvis, secured to the skin on the right side using 3-0 nylon suture. The posterior fascia and peritoneum reapproximated using running #1 chromic suture, anterior fascia reapproximated using both running and interrupted #1 PDS suture. A 5/8 inch [place] drain placed in the subcutaneous space, secured using 4-0 nylon suture. The subcutaneous tissue was irrigated with antibiotic solution. Subcutaneous tissue loosely reapproximated using 2-0 plain suture and then the skin reapproximated using iesha. In several areas, we placed Betadine gauze down in through between the iesha into the wound. The stoma appliance was applied, dressing applied. The patient was transferred to recovery room in stable condition. I attest to the content of the Intraoperative Record and any orders documented therein. Any exception s are noted below.
[2019-12-09] MEDS: PIPERACILLIN/TAZOBACTAM 3.375 GM in DEXTROSE 5% 100 ML IV SCH ×3 (04:14→20:39)
[2019-12-09 06:06] LABS: Basophils # (auto) 0.01 K/uL (0-0.2); Basophils % (auto) 0.1 %; Eosinophils # (auto) 0.05 K/uL (0-0.5); Eosinophils % (auto) 0.5 %; Hematocrit (blood only) 37.6 % (42-52); Hemoglobin 12.9 g/dL (14.0-18.0); Immature Granulocytes # (auto) 0.04 K/uL (0.00-0.02); Immature Granulocytes % (auto) 0.4 %; Lymphocytes # (auto) 0.55 K/uL (1.2-3.4); Lymphocytes % (auto) 5.4 %; Mean Corpuscular Hemoglobin 32.5 pg (25-34); Mean Corpuscular Hgb Conc 34.3 g/dL (32-36); Mean Corpuscular Volume 94.7 fL (80-100); Monocytes # (auto) 0.81 K/uL (0.11-0.59); Neutrophils # (auto) 8.64 K/uL (1.4-6.5); Neutrophils % (auto) 85.6 %; Platelet Count 203 K/uL (130-400); RDW Coefficient of Variation 13.4 % (11.5-14.5); RDW Standard Deviation 46.5 fL (36.4-46.3); Red Blood Count 3.97 M/uL (4.7-6.1)
[2019-12-09] MEDS ORDERED: NALOXONE HCL 0.4 MG/1 ML VIAL/CARP IV PRN (06:20)
[2019-12-09 06:37] LABS: Albumin Level 1.8 gm/dl (3.4-5.0); BUN Creatinine Ratio 14.4 (10-20); Calcium 8.5 mg/dl (8.5-10.1); Creatinine Clr Calc Pharmacy 87.5 ml/min; Est GFR (African American) 77.1; Est GFR (Non-African American) 66.5; Magnesium 2.2 mg/dl (1.8-2.4); Potassium 4.3 mmol/L (3.5-5.1)
[2019-12-09] MEDS: NSS + 20MEQ KCL 20 MEQ/1,000 ML BAG IV SCH ×3 (06:37→22:15)
--- NOTE | 2019-12-09 06:37 | Surgery Progress Note ---
Date of Service December 09, 2019 Assessment & Plan (1) Peritonitis: (2) Diverticulitis of colon with perforation: Patient with diverticulitis with perforation developing peritonitis with severe sepsis Requiring emergent exploratory laparotomy, sigmoid colon resection, end colostomy, abdominal washout Patient had diffuse lower abdominal peritonitis We will continue the NG tube for now, IV fluids, ice chips We will get the patient a Dilaudid SOCIAL SCIENCE PROFESSOR pump He does have a [place] drain in the subcutaneous space as well as wicking in his incision He has a LESLEY drain-we will not change any of this for now Continue IV antibiotics Admission and Anticipated Discharge Date Admission Date: December 06, 2019 Results & Data ([facility]) Vital Signs (Past 12 Hours) Vital Signs Temp Pulse Resp BP Pulse Ox 12/09/19 02:10 37.2 C 103 H 18 171/94 H 94 12/08/19 23:23 37.2 C 96 H 16 122/79 95 PG Care Time/CCT Total # of Minutes Spent Total Time Spent with Patient: Total time spent is greater than 50% in coordination of care (as documented) at patient's floor/unit and/or counseling patient: Coding Level of Care Code None Diagnoses Peritonitis K65.9 Diverticulitis of colon with perforation K57.20
[2019-12-09 06:40] LABS: Albumin Globulin Ratio 0.5 (0.9-2); Bilirubin,Total 0.7 mg/dl (0.2-1); Phosphorus 2.7 mg/dl (2.5-4.9); Total Protein 5.8 gm/dl (6.4-8.2)
[2019-12-09] MEDS: SODIUM CHLORIDE 0.9% 1000ML 1,000 ML IV SCH (07:30)
[2019-12-09] MEDS: HYDROmorphone INJ 0.5 MG/0.5 ML SYR IV PRN (07:44)
[2019-12-09] MEDS: HYDROmorphone PCA 30 MG/30 ML IV PRN (08:20)
[2019-12-09] MEDS: HEPARIN SOD 5,000 UNIT/0.5 ML VIAL SQ SCH ×2 (09:53→20:44)
--- NOTE | 2019-12-09 11:17 | Hospitalist Progress Note ---
Date of Service December 09, 2019 Assessment & Plan (1) Diverticulitis of colon with perforation: 44 yo M PMHx HTN, MICH on CPAP admitted for diverticulitis with contained perforation. This morning with acute worsening of his symptoms Diverticulitis w/ worsening perforation and pneumoperitoneum: - Admitted for abdominal pain and tachycardia - CT to have findings consistent with perforated acute sigmoid diverticulitis - Radiology report stated several locules of extraluminal gas with moderate pericolonic inflammation and fluid - Stat CTAP 12/07: - IV contrast showed progressive perforation of the acute sigmoid diverticulitis with pneumoperitoneum scattered throughout the abdomen and pelvis. - There is a 5.9 x 1.9 cm developing abscess within the left lower quadrant - s/p laparotomy and bowel resection, continue IV Zosyn - Continued care per general surgery recommendations - Will require colonoscopy in the outpatient setting after resolution of acute illness HTN: - Hold lisinopril at this time - Hydralazine 10mg IV q4h PRN SBP >180 Hyperlipidemia: - Resume home atorvastatin IMCH: - Continue home CPAP (2) Hyperlipidemia: (3) MICH (obstructive sleep apnea): (4) Hypertension: Admission and Anticipated Discharge Date Admission Date: December 06, 2019 Supervising Physician Co-Signing Physician Notes I also saw the patient confirmed barnett portions of the history and physical examination. I agree with the impression and plan as noted in the resident documentation. EXAM Upon initial vital signs this morning, the patient was hypertensive at 171/94. However the time of our exam, his blood pressure is 130/81. He remains afebrile but slightly tachycardic. Pulse oximetry readings of 92 to 94% on 2 L via nasal cannula. He does complain of some generalized abdominal pain, especially with coughing. Compared to yesterday though he does feel better. DATA White blood count 10.10, hemoglobin 12.9, platelet count 203. BUN 19, creatinine 1.29, potassium 4.3. IMPRESSION/PLAN Diverticulitis with perforation status post exploratory laparotomy, sigmoid colon resection, and colostomy with abdominal washout, postop day #1 Continue Zosyn Dilaudid RN EXAMINER pump Hypertension Improved blood pressure control now with better pain control Hold lisinopril for time being Hydralazine as needed Hyperlipidemia Atorvastatin Subjective Patient feels like he is doing somewhat better this morning, overnight had some worsening of his pain and was subsequently started on a RN EXAMINER for pain control. Review of Systems Review of Systems: All systems reviewed & are unremarkable except as noted in Subjective Physical Exam Constitutional: WD/WN, vitals as above Eyes: PERRL, conjunctivae normal, anicteric sclerae Neck: normal visual inspection Respiratory: normal respiratory effort, lungs clear to auscultation Cardiovascular: Rate/Rhythm: regular rate and regular rhythm Heart Sounds: no gallop, no murmur and no cardiac rub Gastrointestinal (Abdomen): Inspection/Auscultation: abdomen not distended Percussion/Palpation: + abdomen tender and abdomen soft Skin: no rashes, warm and dry Psychiatric: Orientation: alert and oriented x 3 Results & Data Results & Data ([facility]) Vital Signs (Past 12 Hours) Vital Signs Temp Pulse Resp BP Pulse Ox 12/09/19 10:47 114 H 16 135/83 93 12/09/19 09:42 37.2 C 119 H 18 130/81 92 12/09/19 02:10 37.2 C 103 H 18 171/94 H 94 12/08/19 23:23 37.2 C 96 H 16 122/79 95 Laboratory Results 12/09/19 12/09/19 12/09/19 Range/Units 05:35 05:35 05:35 WBC 10.10 (4.8-10.8) K/uL RBC 3.97 L (4.7-6.1) M/uL Hgb 12.9 L (14.0-18.0) g/dL Hct 37.6 L (42-52) % MCV 94.7 (80-100) fL MCH 32.5 (25-34) pg MCHC 34.3 (32-36) g/dL RDW Std Deviation 46.5 H (36.4-46.3) fL RDW Coeff of Ruddy 13.4 (11.5-14.5) % Plt Count 203 (130-400) K/uL MPV 10.0 (7.4-10.4) fL Immature Gran % (Auto) 0.4 % Neut % (Auto) 85.6 % Lymph % (Auto) 5.4 % Cannon % (Auto) 8.0 % Eos % (Auto) 0.5 % Baso % (Auto) 0.1 % Neut # (Auto) 8.64 H (1.4-6.5) K/uL Lymph # (Auto) 0.55 L (1.2-3.4) K/uL Cannon # (Auto) 0.81 H (0.11-0.59) K/uL Eos # (Auto) 0.05 (0-0.5) K/uL Baso # (Auto) 0.01 (0-0.2) K/uL Immature Gran # (Auto) 0.04 H (0.00-0.02) K/uL Sodium 140 (136-145) mmol/L Potassium 4.3 (3.5-5.1) mmol/L Chloride 110 H (98-107) mmol/L Carbon Dioxide 26 (21-32) mmol/L Anion Gap 3.0 (3-11) BUN 19 H (7-18) mg/dl Creatinine 1.29 (0.6-1.4) mg/dl Est Cr Clr Drug Dosing 87.5 ml/min Est GFR ( Amer) 77.1 Est GFR (Non-Af Amer) 66.5 BUN/Creatinine Ratio 14.4 (10-20) Glucose 113 H (70-99) mg/dl Calcium 8.5 (8.5-10.1) mg/dl Phosphorus 2.9 2.7 (2.5-4.9) mg/dl Magnesium 2.2 (1.8-2.4) mg/dl Total Bilirubin 0.7 D (0.2-1) mg/dl AST 15 (15-37) U/L ALT 18 (12-78) U/L Alkaline Phosphatase 49 (45-117) U/L Total Protein 5.8 L (6.4-8.2) gm/dl Albumin 1.8 L (3.4-5.0) gm/dl Globulin 4.0 (2.5-4.0) gm/dl Albumin/Globulin Ratio 0.5 L (0.9-2) Medications Administered Current Inpatient Medications Heparin Sodium (Porcine) (Heparin Sod 5,000 Unit/0.5 Ml Vial) 5,000 units SQ Q12 [facility] Stop: 01/08/20 08:59 Last Admin: 12/09/19 09:53 Dose: 5,000 units Documented by: Hydralazine HCl (Hydralazine Hcl 20 Mg/Ml Vial) 10 mg IV Q4H PRN PRN Reason: SBP >180 Stop: 01/05/20 15:51 Hydromorphone HCl (Hydromorphone Corrosion Control Fitter 30 Mg/30 Ml) 30 mg IV PRN PRN; Protocol PRN Reason: RN EXAMINER Pain Titration Stop: 12/23/19 06:19 Last Admin: 12/09/19 08:20 Dose: 30 mg Documented by: Piperacillin Sod/Tazobactam (Sod 3.375 gm/ Dextrose) 115 mls @ 28.75 mls/hr IV Q8H BALTA; Protocol Stop: 12/16/19 11:59 Last Admin: 12/09/19 12:18 Dose: 28.8 mls/hr Documented by: Lorazepam (Ativan) 1 mg in 2 mls @ 2 mls/min IV Q6HWA PRN PRN Reason: Anxiety Stop: 01/07/20 14:17 Promethazine HCl 25 mg/ Sodium (Chloride) 51 mls @ 204 mls/hr IV Q6H PRN PRN Reason: Nausea And Vomiting Stop: 01/07/20 14:17 Promethazine HCl 12.5 mg/ (Sodium Chloride) 50.5 mls @ 204 mls/hr IV Q6H PRN PRN Reason: Nausea And Vomiting Stop: 01/07/20 14:17 Potassium Chloride/Sodium Chloride (Normal Saline W/20 Meq Kcl) 20 meq in 1,000 mls @ 150 mls/hr IV .Q6H40M BALTA Stop: 01/07/20 14:29 Last Admin: 12/09/19 14:35 Dose: 125 mls/hr Documented by: Sodium Chloride (Nss 1000ml) 1,000 mls @ 15 mls/hr IV .Q24H BALTA Stop: 12/23/19 06:20 Last Admin: 12/09/19 07:30 Dose: Not Given Documented by: Miscellaneous Information (Piperacill/Tazobac Consult Active) 1 ea N/A UD PRN PRN Reason: Consult Stop: 01/05/20 09:09 Naloxone HCl (Naloxone Hcl 0.4 Mg/1 Ml Vial/Carp) 0.1 mg IV Q5M PRN; Protocol PRN Reason: Oversedation/Resp Depression Stop: 12/23/19 06:19 Ondansetron HCl (Ondansetron Inj 2 Mg/Ml 2 Ml Vial) 4 mg IV Q6H PRN PRN Reason: Nausea Stop: 01/05/20 09:09 Ondansetron HCl (Ondansetron Inj 2 Mg/Ml 2 Ml Vial) 4 mg IV 4XDQ4H PRN PRN Reason: Nausea Stop: 01/07/20 14:17 Resident Activity Tracking Resident Involvement: Resident Care Provided Care Provided: Adult Hospital Medicine (1) Hyperlipidemia Hyperlipidemia type: mixed hyperlipidemia Qualified Code(s): E78.2 - Mixed hyperlipidemia (2) Hypertension Hypertension type: essential hypertension Qualified Code(s): I10 - Essential (primary) hypertension
[2019-12-10] MEDS: PIPERACILLIN/TAZOBACTAM 3.375 GM in DEXTROSE 5% 100 ML IV SCH ×3 (04:33→20:29)
[2019-12-10] MEDS: NSS + 20MEQ KCL 20 MEQ/1,000 ML BAG IV SCH ×2 (04:39→15:05)
[2019-12-10] MEDS: SODIUM CHLORIDE 0.9% 1000ML 1,000 ML IV SCH (05:05)
[2019-12-10] MEDS: HYDROmorphone PCA 30 MG/30 ML IV PRN ×2 (07:13→23:18)
--- NOTE | 2019-12-10 07:14 | Surgery Progress Note ---
Date of Service December 10, 2019 Assessment & Plan (1) Peritonitis: Patient had a fever but is afebrile this morning Excellent urine output-we will decrease his IV fluid NG output is normal gastric fluid-DC NG and give sips and popsicles Continue IV antibiotics Continue wound care Try to mobilize Admission and Anticipated Discharge Date Admission Date: December 06, 2019 Results & Data ([facility]) Vital Signs (Past 12 Hours) Vital Signs Temp Pulse Resp BP Pulse Ox 12/09/19 23:31 36.5 C 106 H 14 139/82 93 12/09/19 23:15 37.1 C 12/09/19 20:06 38.9 C H 112 H 16 152/92 H 94 PG Care Time/CCT Total # of Minutes Spent Total Time Spent with Patient: Total time spent is greater than 50% in coordination of care (as documented) at patient's floor/unit and/or counseling patient: Coding Level of Care Code None Diagnoses Peritonitis K65.9
[2019-12-10] MEDS ORDERED: ENOXAPARIN INJ 40 MG/0.4 ML SYR SQ SCH (09:00)
[2019-12-10] MEDS: HEPARIN SOD 5,000 UNIT/0.5 ML VIAL SQ SCH ×2 (09:25→20:29)
[2019-12-10 10:11] LABS: Basophils # (auto) 0.02 K/uL (0-0.2); Basophils % (auto) 0.2 %; Eosinophils # (auto) 0.19 K/uL (0-0.5); Eosinophils % (auto) 1.6 %; Hematocrit (blood only) 39.1 % (42-52); Hemoglobin 12.6 g/dL (14.0-18.0); Immature Granulocytes # (auto) 0.05 K/uL (0.00-0.02); Immature Granulocytes % (auto) 0.4 %; Lymphocytes # (auto) 0.76 K/uL (1.2-3.4); Lymphocytes % (auto) 6.5 %; Mean Corpuscular Hemoglobin 31.6 pg (25-34); Mean Corpuscular Hgb Conc 32.2 g/dL (32-36); Mean Platelet Volume 9.1 fL (7.4-10.4); Monocytes # (auto) 1.49 K/uL (0.11-0.59); Monocytes % (auto) 12.7 %; Neutrophils # (auto) 9.18 K/uL (1.4-6.5); Neutrophils % (auto) 78.6 %; Platelet Count 244 K/uL (130-400); RDW Coefficient of Variation 14.1 % (11.5-14.5); RDW Standard Deviation 50.5 fL (36.4-46.3); Red Blood Count 3.99 M/uL (4.7-6.1); White Blood Count 11.69 K/uL (4.8-10.8)
[2019-12-10 10:30] LABS: Calcium 8.9 mg/dl (8.5-10.1); Creatinine Clr Calc Pharmacy 97.3 ml/min; Est GFR (African American) 87.7; Est GFR (Non-African American) 75.6; Potassium 4.3 mmol/L (3.5-5.1)
--- NOTE | 2019-12-10 12:40 | Hospitalist Progress Note ---
Date of Service December 10, 2019 Assessment & Plan (1) Diverticulitis of colon with perforation: 44 yo M PMHx HTN, MICH on CPAP admitted for diverticulitis with contained perforation. This morning with acute worsening of his symptoms Diverticulitis w/ worsening perforation and pneumoperitoneum: - Admitted for abdominal pain and tachycardia - CT to have findings consistent with perforated acute sigmoid diverticulitis - Radiology report stated several locules of extraluminal gas with moderate pericolonic inflammation and fluid - Stat CTAP 12/07: - IV contrast showed progressive perforation of the acute sigmoid diverticulitis with pneumoperitoneum scattered throughout the abdomen and pelvis. - There was a 5.9 x 1.9 cm developing abscess within the left lower quadrant - s/p laparotomy and bowel resection - Continue IV Zosyn - Continued care per general surgery recommendations - Will require colonoscopy in the outpatient setting after resolution of acute illness HTN: - restart lisinopril at this time - Hydralazine 10mg IV q4h PRN SBP >180 Hyperlipidemia: - Resume home atorvastatin MICH: - Continue home CPAP (2) Hyperlipidemia: (3) MICH (obstructive sleep apnea): (4) Hypertension: Admission and Anticipated Discharge Date Admission Date: December 06, 2019 Supervising Physician Co-Signing Physician Notes I also saw the patient confirmed barnett portions of the history and physical examination. I agree with the impression and plan as noted in the resident documentation. Overall he is feeling much better today. His NG tube has been removed. He notes less abdominal discomfort. He had a temperature overnight of 38.9 C; he has been afebrile since 8:00 last evening. EXAM Blood pressure 154/87. Abdomen soft and only mildly tender. DATA White blood count 11.69, hemoglobin 12.6 BUN 22, creatinine 1.16. IMPRESSION/PLAN Diverticulitis with perforation status post exploratory laparotomy, sigmoid colon resection, and colostomy with abdominal washout, postop day #2 Continue Zosyn Dilaudid SENIOR QA AUTOMATION ENGINEER pump Hypertension Improved blood pressure control now with better pain control Resume lisinopril lisinopril Hydralazine as needed Hyperlipidemia Atorvastatin Subjective Patient feels considerably better this morning following getting his NG tube pulled and being allowed to drink some small fluids. Had considerable improvement in his overall pain, as he has not had any more coughing spells since the NG was pulled. Tolerated sips and ice chips throughout the day without complication. Review of Systems Review of Systems: All systems reviewed & are unremarkable except as noted in Subjective Physical Exam Constitutional: WD/WN, vitals as above Eyes: PERRL, conjunctivae normal, anicteric sclerae Neck: normal visual inspection Respiratory: normal respiratory effort, lungs clear to auscultation Cardiovascular: Rate/Rhythm: regular rate and regular rhythm Heart Sounds: no gallop, no murmur and no cardiac rub Gastrointestinal (Abdomen): Inspection/Auscultation: abdomen not distended Percussion/Palpation: + abdomen tender and abdomen soft Skin: no rashes, warm and dry Psychiatric: Orientation: alert and oriented x 3 Results & Data Results & Data ([facility]) Vital Signs (Past 12 Hours) Vital Signs Temp Pulse Resp BP Pulse Ox 12/10/19 12:27 37.4 C 106 H 16 141/91 H 92 12/10/19 07:56 36.4 C L 95 H 20 142/87 H 95 Laboratory Results 12/10/19 12/10/19 Range/Units 10:03 10:03 WBC 11.69 H (4.8-10.8) K/uL RBC 3.99 L (4.7-6.1) M/uL Hgb 12.6 L (14.0-18.0) g/dL Hct 39.1 L (42-52) % MCV 98.0 (80-100) fL MCH 31.6 (25-34) pg MCHC 32.2 (32-36) g/dL RDW Std Deviation 50.5 H (36.4-46.3) fL RDW Coeff of Ruddy 14.1 (11.5-14.5) % Plt Count 244 (130-400) K/uL MPV 9.1 (7.4-10.4) fL Immature Gran % (Auto) 0.4 % Neut % (Auto) 78.6 % Lymph % (Auto) 6.5 % Roberts % (Auto) 12.7 % Eos % (Auto) 1.6 % Baso % (Auto) 0.2 % Neut # (Auto) 9.18 H (1.4-6.5) K/uL Lymph # (Auto) 0.76 L (1.2-3.4) K/uL Roberts # (Auto) 1.49 H (0.11-0.59) K/uL Eos # (Auto) 0.19 (0-0.5) K/uL Baso # (Auto) 0.02 (0-0.2) K/uL Immature Gran # (Auto) 0.05 H (0.00-0.02) K/uL Sodium 146 H (136-145) mmol/L Potassium 4.3 (3.5-5.1) mmol/L Chloride 113 H (98-107) mmol/L Carbon Dioxide 30 (21-32) mmol/L Anion Gap 3.0 (3-11) BUN 22 H (7-18) mg/dl Creatinine 1.16 (0.6-1.4) mg/dl Est Cr Clr Drug Dosing 97.3 ml/min Est GFR ( Amer) 87.7 Est GFR (Non-Af Amer) 75.6 BUN/Creatinine Ratio 19.0 (10-20) Glucose 102 H (70-99) mg/dl Calcium 8.9 (8.5-10.1) mg/dl Medications Administered Current Inpatient Medications Enoxaparin Sodium (Enoxaparin Inj 40 Mg/0.4 Ml Syr) 40 mg SQ QAM [facility]TA Stop: 01/10/20 08:59 Heparin Sodium (Porcine) (Heparin Sod 5,000 Unit/0.5 Ml Vial) 5,000 units SQ Q12 [facility] Stop: 12/10/19 23:59 Last Admin: 12/10/19 09:25 Dose: 5,000 units Documented by: Hydralazine HCl (Hydralazine Hcl 20 Mg/Ml Vial) 10 mg IV Q4H PRN PRN Reason: SBP >180 Stop: 01/05/20 15:51 Hydromorphone HCl (Hydromorphone Extractions Technologist 30 Mg/30 Ml) 30 mg IV PRN PRN; Protocol PRN Reason: SENIOR QA AUTOMATION ENGINEER Pain Titration Stop: 12/23/19 06:19 Last Admin: 12/10/19 07:13 Dose: 30 mg Documented by: Piperacillin Sod/Tazobactam (Sod 3.375 gm/ Dextrose) 115 mls @ 28.75 mls/hr IV Q8H BALTA; Protocol Stop: 12/16/19 11:59 Last Infusion: 12/10/19 16:36 Dose: Infused Documented by: Lorazepam (Ativan) 1 mg in 2 mls @ 2 mls/min IV Q6HWA PRN PRN Reason: Anxiety Stop: 01/07/20 14:17 Promethazine HCl 25 mg/ Sodium (Chloride) 51 mls @ 204 mls/hr IV Q6H PRN PRN Reason: Nausea And Vomiting Stop: 01/07/20 14:17 Promethazine HCl 12.5 mg/ (Sodium Chloride) 50.5 mls @ 204 mls/hr IV Q6H PRN PRN Reason: Nausea And Vomiting Stop: 01/07/20 14:17 Potassium Chloride/Sodium Chloride (Normal Saline W/20 Meq Kcl) 20 meq in 1,000 mls @ 80 mls/hr IV .[id number] BALTA Stop: 01/07/20 14:29 Last Admin: 12/10/19 15:05 Dose: 80 mls/hr Documented by: Sodium Chloride (Nss 1000ml) 1,000 mls @ 15 mls/hr IV .Q24H BALTA Stop: 12/23/19 06:20 Last Admin: 12/10/19 05:05 Dose: Not Given Documented by: Miscellaneous Information (Piperacill/Tazobac Consult Active) 1 ea N/A UD PRN PRN Reason: Consult Stop: 01/05/20 09:09 Naloxone HCl (Naloxone Hcl 0.4 Mg/1 Ml Vial/Carp) 0.1 mg IV Q5M PRN; Protocol PRN Reason: Oversedation/Resp Depression Stop: 12/23/19 06:19 Ondansetron HCl (Ondansetron Inj 2 Mg/Ml 2 Ml Vial) 4 mg IV Q6H PRN PRN Reason: Nausea Stop: 01/05/20 09:09 Ondansetron HCl (Ondansetron Inj 2 Mg/Ml 2 Ml Vial) 4 mg IV 4XDQ4H PRN PRN Reason: Nausea Stop: 01/07/20 14:17 Resident Activity Tracking Resident Involvement: Resident Care Provided Care Provided: Adult Hospital Medicine (1) Hyperlipidemia Hyperlipidemia type: mixed hyperlipidemia Qualified Code(s): E78.2 - Mixed hyperlipidemia (2) Hypertension Hypertension type: essential hypertension Qualified Code(s): I10 - Essential (primary) hypertension
[2019-12-11] MEDS: NSS + 20MEQ KCL 20 MEQ/1,000 ML BAG IV SCH ×3 (03:07→13:54)
[2019-12-11] MEDS: PIPERACILLIN/TAZOBACTAM 3.375 GM in DEXTROSE 5% 100 ML IV SCH ×3 (03:32→19:18)
[2019-12-11 06:23] LABS: Hematocrit (blood only) 39.2 % (42-52); Hemoglobin 12.4 g/dL (14.0-18.0); Mean Corpuscular Hgb Conc 31.6 g/dL (32-36); Mean Platelet Volume 9.5 fL (7.4-10.4); Platelet Count 291 K/uL (130-400); RDW Standard Deviation 50.6 fL (36.4-46.3); White Blood Count 11.45 K/uL (4.8-10.8)
--- NOTE | 2019-12-11 06:24 | Surgery Progress Note ---
Date of Service December 11, 2019 Assessment & Plan (1) Peritonitis: Patient with belching and hiccups Very good urine output Drain serosanguineous Abdomen is distended with decreased bowel sounds, no significant colostomy output Suspect poor GI function Will require an NG tube, leave Fry for now Ice chips only Admission and Anticipated Discharge Date Admission Date: December 06, 2019 Results & Data ([facility]) Vital Signs (Past 12 Hours) Vital Signs Temp Pulse Pulse Resp BP Pulse Ox 12/11/19 04:00 37.0 C 93 H 14 148/93 H 92 12/11/19 00:00 37.3 C 92 H 14 141/82 H 94 12/10/19 20:17 37.2 C 90 14 146/86 H 93 PG Care Time/CCT Total # of Minutes Spent Total Time Spent with Patient: Total time spent is greater than 50% in coordination of care (as documented) at patient's floor/unit and/or counseling patient: Coding Level of Care Code None Diagnoses Peritonitis K65.9
[2019-12-11 06:48] LABS: Basophils # (auto) 0.05 K/uL (0-0.2); Basophils % (auto) 0.4 %; Eosinophils # (auto) 0.26 K/uL (0-0.5); Eosinophils % (auto) 2.3 %; Immature Granulocytes # (auto) 0.08 K/uL (0.00-0.02); Immature Granulocytes % (auto) 0.7 %; Lymphocytes # (auto) 1.19 K/uL (1.2-3.4); Lymphocytes % (auto) 10.4 %; Monocytes # (auto) 1.51 K/uL (0.11-0.59); Monocytes % (auto) 13.2 %; Neutrophils # (auto) 8.36 K/uL (1.4-6.5)
[2019-12-11 07:00] LABS: BUN Creatinine Ratio 22.7 (10-20); Creatinine Clr Calc Pharmacy 106.5 ml/min; Est GFR (African American) 97.8; Est GFR (Non-African American) 84.3; Potassium 4.2 mmol/L (3.5-5.1)
[2019-12-11] MEDS: HYDROmorphone PCA 30 MG/30 ML IV PRN ×2 (07:10→22:37)
[2019-12-11 07:28] LABS: Magnesium 2.3 mg/dl (1.8-2.4); Phosphorus 3.2 mg/dl (2.5-4.9)
[2019-12-11] MEDS: lisinopril 10 MG TAB PO SCH (07:32)
[2019-12-11] MEDS: ENOXAPARIN INJ 40 MG/0.4 ML SYR SQ SCH (07:32)
[2019-12-11] MEDS: SODIUM CHLORIDE 0.9% 1000ML 1,000 ML IV SCH ×2 (07:36→21:23)
--- NOTE | 2019-12-11 07:55 | XRay Report ---
XR abdomen 2V w PA chest HISTORY: 44 years-old Male Ileus all of study in a patient with acute generalized abdominal pain and ileus COMPARISON: CT abdomen and pelvis 12/08/2019 TECHNIQUE: AP view of the chest with erect and supine views of the abdomen FINDINGS: Cardiomediastinal and hilar silhouettes are within normal limits. Unchanged right hemidiaphragmatic e levation. Linear subsegmental bibasilar opacities are redemonstrated along with trace pleural effusio ns. No pneumothorax or overt pulmonary edema. Bones of the chest appear grossly intact. Anterior midline skin iesha are noted. A surgical drainage catheter distal tip projects over the le ft lower quadrant of the pelvis. Probable primrose catheter of the lower pelvis. Mild gaseous distent ion of the large bowel measures up to 5.6 cm. Moderate distention of the small bowel measures up to 5 .6 cm. There is suggestion of small volume pneumoperitoneum. No pneumatosis. No definite urolith. Fus ion hardware at L5-S1. IMPRESSION: 1. Lower abdominal midline skin iesha are noted with left lower quadrant drainage catheter. 2. Distended large and small bowel loops are suggestive of postoperative ileus. 3. Small volume pneumoperitoneum. 4. Right hemidiaphragmatic elevation with bibasilar atelectasis. 5. Trace pleural effusions. ACT 112: Negative or not required by law. The above report was generated using voice recognition software. It may contain grammatical, syntax o r spelling errors. Electronically signed by: Elie Sheffield M.D. 12/11/2019 7:54 AM
--- NOTE | 2019-12-11 09:16 | XRay Report ---
KUB HISTORY: Status post placement of an enteric tube NG tube placement COMPARISON: Acute abdominal series radiographs of same day at 7:04 AM FINDINGS: Status post placement of an enteric tube, distal tip projected over the expected location o f the proximal gastric body, side-port within the gastroesophageal junction. Persistent small bowel d istention with air also noted within the transverse colon. Trace pneumoperitoneum. No pneumatosis. Lo wer midline abdominal. Posterior interbody peterson fusion L5-S1. Bones appear grossly intact. IMPRESSION: 1. Status post placement of an enteric tube, distal tip in the region of the proximal gastric body wi th side-port near the gastroesophageal junction. 2. Persistent small bowel distention with air also noted within the large bowel. 3. Trace pneumoperitoneum. ACT 112: Negative or not required by law. The above report was generated using voice recognition software. It may contain grammatical, syntax o r spelling errors. Electronically signed by: Elie Sheffield M.D. 12/11/2019 9:15 AM
--- NOTE | 2019-12-11 10:08 | Hospitalist Progress Note ---
Date of Service December 11, 2019 Assessment & Plan (1) Diverticulitis of colon with perforation: 44 yo M PMHx HTN, MICH on CPAP admitted for diverticulitis with contained perforation. Now POD#3 s/p laparotomy and bowel resection Diverticulitis w/ worsening perforation and pneumoperitoneum: - admission CT findings consistent with perforated acute sigmoid diverticulitis - Radiology report stated several locules of extraluminal gas with moderate pericolonic inflammation and fluid - Stat CTAP /: - IV contrast showed progressive perforation of the acute sigmoid diverticulitis with pneumoperitoneum scattered throughout the abdomen and pelvis. - There was a 5.9 x 1.9 cm developing abscess within the left lower quadrant - s/p POD #3 laparotomy and bowel resection - Continue IV Zosyn - KUB 12/10 demonstrated: 1. Status post placement of an enteric tube, distal tip in the region of the proximal gastric body with side-port near the gastroesophageal junction. 2. Persistent small bowel distention with air also noted within the large bowel. 3. Trace pneumoperitoneum. - Gen. surgery: - replaced NG tube on LIW suction due to abdominal distension, and holding diet at sips and chips today - Will require colonoscopy in the outpatient setting after resolution of acute illness HTN: - continue lisinopril at this time - Hydralazine 10mg IV q4h PRN SBP >180 Hyperlipidemia: - continue home atorvastatin MICH: - Continue home CPAP (2) Hyperlipidemia: (3) MICH (obstructive sleep apnea): (4) Hypertension: Admission and Anticipated Discharge Date Admission Date: December 06, 2019 Supervising Physician Co-Signing Physician Notes I also saw the patient confirmed barnett portions of the history and physical examination. I agree with the impression and plan as noted in the resident documentation. NG tube has been replaced overnight. Fortunately, he feels better post placement. EXAM Blood pressure 144/82. Afebrile. Abdomen soft and only mildly tender. DATA White blood count 11.45, hemoglobin 12.4 BUN 24, creatinine 1.06. IMPRESSION/PLAN Diverticulitis with perforation status post exploratory laparotomy, sigmoid colon resection, and colostomy with abdominal washout, postop day #3 Continue Zosyn Dilaudid TESTS SUPERINTENDENT pump NG tube Hypertension Varies dependent on pain Lisinopril Hydralazine as needed Hyperlipidemia Atorvastatin Subjective Patient had worsening of his abdominal pain with some distension overnight, noticed it after he continued to drink fluids and started to notice that he was burping and more gassy than he thought he should be and then this progressed to feelings of reflux with any small amount of liquids consumed. Was utilizing his TESTS SUPERINTENDENT to control the pain as best as possible but this was mostly unsuccessful. [place] large amounts of relief following the NG tube being replaced with decreased feelings of tension within his stomach. Review of Systems Review of Systems: All systems reviewed & are unremarkable except as noted in Subjective Physical Exam Constitutional: WD/WN, vitals as above Eyes: PERRL, conjunctivae normal, anicteric sclerae Neck: normal visual inspection Respiratory: normal respiratory effort, lungs clear to auscultation Cardiovascular: Rate/Rhythm: regular rate and regular rhythm Heart Sounds: no gallop, no murmur and no cardiac rub Gastrointestinal (Abdomen): Inspection/Auscultation: abdomen not distended Percussion/Palpation: abdomen soft and + tympanic to percussion; abdomen nontender Skin: no rashes, warm and dry Psychiatric: Orientation: alert and oriented x 3 Results & Data Results & Data ([facility]) Vital Signs (Past 12 Hours) Vital Signs Temp Pulse Pulse Resp BP Pulse Ox 12/11/19 07:38 36.6 C 87 21 145/89 H 94 12/11/19 04:00 37.0 C 93 H 14 148/93 H 92 12/11/19 00:00 37.3 C 92 H 14 141/82 H 94 Laboratory Results 12/11/19 12/11/19 12/11/19 Range/Units 06:47 05:58 05:58 WBC 11.45 H (4.8-10.8) K/uL RBC 4.00 L (4.7-6.1) M/uL Hgb 12.4 L (14.0-18.0) g/dL Hct 39.2 L (42-52) % MCV 98.0 (80-100) fL MCH 31.0 (25-34) pg MCHC 31.6 L (32-36) g/dL RDW Std Deviation 50.6 H (36.4-46.3) fL RDW Coeff of Ruddy 14.0 (11.5-14.5) % Plt Count 291 (130-400) K/uL MPV 9.5 (7.4-10.4) fL Immature Gran % (Auto) 0.7 % Neut % (Auto) 73.0 % Lymph % (Auto) 10.4 % [place] % (Auto) 13.2 % Eos % (Auto) 2.3 % Baso % (Auto) 0.4 % Neut # (Auto) 8.36 H (1.4-6.5) K/uL Lymph # (Auto) 1.19 L (1.2-3.4) K/uL [place] # (Auto) 1.51 H (0.11-0.59) K/uL Eos # (Auto) 0.26 (0-0.5) K/uL Baso # (Auto) 0.05 (0-0.2) K/uL Immature Gran # (Auto) 0.08 H (0.00-0.02) K/uL Sodium 143 (136-145) mmol/L Potassium 4.2 (3.5-5.1) mmol/L Chloride 110 H (98-107) mmol/L Carbon Dioxide 28 (21-32) mmol/L Anion Gap 5.0 (3-11) BUN 24 H (7-18) mg/dl Creatinine 1.06 (0.6-1.4) mg/dl Est Cr Clr Drug Dosing 106.5 ml/min Est GFR ( Amer) 97.8 Est GFR (Non-Af Amer) 84.3 BUN/Creatinine Ratio 22.7 H (10-20) Glucose 111 H (70-99) mg/dl Calcium 9.0 (8.5-10.1) mg/dl Phosphorus 3.2 (2.5-4.9) mg/dl Magnesium 2.3 (1.8-2.4) mg/dl Medications Administered Current Inpatient Medications Enoxaparin Sodium (Enoxaparin Inj 40 Mg/0.4 Ml Syr) 40 mg SQ QAM [facility] Stop: 01/10/20 08:59 Last Admin: 12/11/19 07:32 Dose: 40 mg Documented by: Hydralazine HCl (Hydralazine Hcl 20 Mg/Ml Vial) 10 mg IV Q4H PRN PRN Reason: SBP >180 Stop: 01/05/20 15:51 Hydromorphone HCl (Hydromorphone [employer] Remover 30 Mg/30 Ml) 30 mg IV PRN PRN; Protocol PRN Reason: TESTS SUPERINTENDENT Pain Titration Stop: 12/23/19 06:19 Last Admin: 12/11/19 07:10 Dose: 30 mg Documented by: Piperacillin Sod/Tazobactam (Sod 3.375 gm/ Dextrose) 115 mls @ 28.75 mls/hr IV Q8H [facility]; Protocol Stop: 12/16/19 11:59 Last Infusion: 12/11/19 07:37 Dose: Infused Documented by: Lorazepam (Ativan) 1 mg in 2 mls @ 2 mls/min IV Q6HWA PRN PRN Reason: Anxiety Stop: 01/07/20 14:17 Promethazine HCl 25 mg/ Sodium (Chloride) 51 mls @ 204 mls/hr IV Q6H PRN PRN Reason: Nausea And Vomiting Stop: 01/07/20 14:17 Promethazine HCl 12.5 mg/ (Sodium Chloride) 50.5 mls @ 204 mls/hr IV Q6H PRN PRN Reason: Nausea And Vomiting Stop: 01/07/20 14:17 Potassium Chloride/Sodium Chloride (Normal Saline W/20 Meq Kcl) 20 meq in 1,000 mls @ 80 mls/hr IV .[id number] [facility] Stop: 01/07/20 14:29 Last Admin: 12/11/19 07:53 Dose: 80 mls/hr Documented by: Sodium Chloride (Nss 1000ml) 1,000 mls @ 15 mls/hr IV .Q24H [facility] Stop: 12/23/19 06:20 Last Admin: 12/11/19 07:36 Dose: Not Given Documented by: Lisinopril (Lisinopril 10 Mg Tab) 10 mg PO QAM [facility] Stop: 01/10/20 08:59 Last Admin: 12/11/19 07:32 Dose: 10 mg Documented by: Miscellaneous Information (Piperacill/Tazobac Consult Active) 1 ea N/A UD PRN PRN Reason: Consult Stop: 01/05/20 09:09 Naloxone HCl (Naloxone Hcl 0.4 Mg/1 Ml Vial/Carp) 0.1 mg IV Q5M PRN; Protocol PRN Reason: Oversedation/Resp Depression Stop: 12/23/19 06:19 Ondansetron HCl (Ondansetron Inj 2 Mg/Ml 2 Ml Vial) 4 mg IV Q6H PRN PRN Reason: Nausea Stop: 01/05/20 09:09 Ondansetron HCl (Ondansetron Inj 2 Mg/Ml 2 Ml Vial) 4 mg IV 4XDQ4H PRN PRN Reason: Nausea Stop: 01/07/20 14:17 Resident Activity Tracking Resident Involvement: Resident Care Provided Care Provided: Adult [facility] Medicine (1) Hyperlipidemia Hyperlipidemia type: mixed hyperlipidemia Qualified Code(s): E78.2 - Mixed hyperlipidemia (2) Hypertension Hypertension type: essential hypertension Qualified Code(s): I10 - Essential (primary) hypertension
[2019-12-11] MEDS ORDERED: DEXTROSE 10% 1,000 ML IV PRN (12:41)
[2019-12-11] MEDS ORDERED: TPN/PPN CONSULT PHARMACY PRN (12:49)
--- NOTE | 2019-12-11 13:25 | Pharmacy Report ---
Pharmacy PN Initial Consult - Date of Service December 11, 2019 - Scope Pharmacy has been consulted to manage parenteral nutrition orders and order appropriate labs. As part of the Nutrition Support Team guidelines, pharmacy will work in conjunction with dietary when determining the patients caloric needs. - Subjective The patient is a 44 year old M admitted on 12/06/19 08:29 for PERFORATED DIVERTICULITIS s/p ex lap and colostomy/bowel resection. Patient is to receive parenteral nutrition for ileus, poor GI function, prolonged NPO. - Objective Height: 5 ft 11 in Weight: 101 kg Intake & Output (Last 24Hrs): Intake & Output 12/09/19 12/10/19 12/11/19 12/12/19 06:59 06:59 06:59 06:59 Intake Total 6249.583 / 6249.583 3300.833 / 3300.833 4246.000 / 4246.000 283 / 283 Output Total 2295 / 2295 6150 / 6150 3815 / 3815 Balance 3954.583 / 3954.583 -2849.167 / -2849.167 431.000 / 431.000 283 / 283 Weight 101 kg 101 kg Laboratory Data (Last 24 Hrs):: 12/11/19 12/11/19 05:58 06:47 Sodium 143 Potassium 4.2 Chloride 110 H Carbon Dioxide 28 BUN 24 H Creatinine 1.06 Glucose 111 H Calcium 9.0 Phosphorus 3.2 Magnesium 2.3 Nutrition Assessment:: Please refer to the Notes section of the EMR for the most recent general internist and physician leader note. - Assessment Patient has been receiving NS w KCl 20 mEq/L @ 80 mL/hr. This provides ~ 40 mEq of potassium and 1920 mL of fluid daily. Electrolytes stable. Called IV team, spoke jordana Acosta. BRANDON to use current peripheral access. Dietary consulted - discussed macronurtrients w Karla Knapp. Will be limited by osmolarity restructions in PPN but will optimize protein and reduce dextrose as needed to compensate. - Plan For day 1 of PN administration, the following will be ordered: Macronutrients Amino acids 100 grams/day Dextrose 100 grams/day Lipids 50 grams/day Micronutrients Combined electrolytes 20 mL - contains 35 mEq Na, 20 meq K, 4.5 mEq Ca, 5 mEq Mg, 35 mEq Cl, 29.5 mEq acetate per 20 mL Sodium chloride 40 mEq Potassium phosphate 15 mMol Multivitamins 10 mL Trace Elements 10 mL Total volume 1920 mL to be infused over 24 hrs will provide 1240 kcal/day Final osmolarity 876 mOsm/L (maximum for PPN is 900 mOsm/L) Labs to be ordered per PN order protocol Pharmacy will follow and adjust parenteral nutrition orders on a daily basis. Thank you.
[2019-12-11] MEDS ORDERED: PERIPHERAL PN IV SCH (16:00)
[2019-12-11] MEDS ORDERED: TPN IV SCH (16:00)
[2019-12-12] MEDS: PIPERACILLIN/TAZOBACTAM 3.375 GM in DEXTROSE 5% 100 ML IV SCH (03:47)
--- NOTE | 2019-12-12 07:10 | Surgery Progress Note ---
Date of Service December 12, 2019 Assessment & Plan (1) Peritonitis: Less NG output Dark blood-tinged fluid Patient is on protonix Abdomen is less distended but has decreased bowel sounds Apparently had some colostomy output Will discontinue Fry Should ambulate in the hallway Continue IV antibiotics Patient ordered PPN-should help with his protein status ID consult placed for choice of IV antibiotic Admission and Anticipated Discharge Date Admission Date: December 06, 2019 Results & Data ([facility]) Vital Signs (Past 12 Hours) Vital Signs Temp Pulse Pulse Resp BP BP Pulse Ox 12/12/19 03:54 37.3 C 61 16 149/83 H 92 12/11/19 23:30 37.1 C 66 18 142/80 H 95 12/11/19 19:54 37.7 C H 76 18 137/79 97 PG Care Time/CCT Total # of Minutes Spent Total Time Spent with Patient: Total time spent is greater than 50% in coordination of care (as documented) at patient's floor/unit and/or counseling patient: Coding Level of Care Code None Diagnoses Peritonitis K65.9
--- NOTE | 2019-12-12 07:40 | Hospitalist Progress Note ---
Date of Service December 12, 2019 Assessment & Plan (1) Diverticulitis of colon with perforation: 44 yo M PMHx HTN, MICH on CPAP admitted for diverticulitis with contained perforation. Now POD#3 s/p laparotomy and bowel resection Diverticulitis w/ worsening perforation and pneumoperitoneum: - s/p POD #4 laparotomy and bowel resection - admission CT findings consistent with perforated acute sigmoid diverticulitis - Radiology report stated several locules of extraluminal gas with moderate pericolonic inflammation and fluid - Stat CTAP 10: - IV contrast showed progressive perforation of the acute sigmoid diverticulitis with pneumoperitoneum scattered throughout the abdomen and pelvis. - There was a 5.9 x 1.9 cm developing abscess within the left lower quadrant - Continue IV Unasyn - KUB 12/10 demonstrated: 1. Status post placement of an enteric tube, distal tip in the region of the proximal gastric body with side-port near the gastroesophageal junction. 2. Persistent small bowel distention with air also noted within the large bowel. 3. Trace pneumoperitoneum. - Gen. surgery: - continue NG on LIW suction; holding diet at sips and chips today HTN: - continue lisinopril at this time - Hydralazine 10mg IV q4h PRN SBP >180 Hyperlipidemia: - continue home atorvastatin MICH: - Continue home CPAP (2) Hyperlipidemia: (3) MICH (obstructive sleep apnea): (4) Hypertension: Admission and Anticipated Discharge Date Admission Date: December 06, 2019 Supervising Physician Co-Signing Physician Notes I also saw the patient confirmed barnett portions of the history and physical examination. I agree with the impression and plan as noted in the resident documentation. NG tube remains in; PPN has been started. He has had some colostomy output. EXAM Blood pressure 137/79. Afebrile. Abdomen with less tenderness but decreased bowel sounds DATA White blood count 10.23, hemoglobin 12.3 BUN 24, creatinine 1.02. Potassium 3.9, phosphorus 2.2. IMPRESSION/PLAN Diverticulitis with perforation status post exploratory laparotomy, sigmoid colon resection, and colostomy with abdominal washout, postop day #4 Continue Zosyn Dilaudid CHIEF JAILER pump NG tube PPN Replete electrolyte abnormalities Hypertension Improved Continue lisinopril Hydralazine as needed Hyperlipidemia Atorvastatin Subjective Patient had a high amount of irritation from the NG tube overnight causing him to gag some and that created some worse abdominal pain. He feels like overall his abdomen has improved overall, and he feels like now that he is getting some output from his ostomy he can finally feel like he is progressing. Denies nausea, vomiting, fevers, chills, sweats. Review of Systems Review of Systems: All systems reviewed & are unremarkable except as noted in Subjective Physical Exam Constitutional: WD/WN, vitals as above Eyes: PERRL, conjunctivae normal, anicteric sclerae Neck: normal visual inspection Respiratory: normal respiratory effort, lungs clear to auscultation Cardiovascular: Rate/Rhythm: regular rate and regular rhythm Heart Sounds: no gallop, no murmur and no cardiac rub Gastrointestinal (Abdomen): Inspection/Auscultation: abdomen not distended Percussion/Palpation: abdomen soft and + tympanic to percussion; abdomen nontender Skin: no rashes, warm and dry Psychiatric: Orientation: alert and oriented x 3 Results & Data Results & Data ([facility]) Vital Signs (Past 12 Hours) Vital Signs Temp Pulse Pulse Resp BP BP Pulse Ox 12/12/19 03:54 37.3 C 61 16 149/83 H 92 12/11/19 23:30 37.1 C 66 18 142/80 H 95 12/11/19 19:54 37.7 C H 76 18 137/79 97 Laboratory Results 12/12/19 12/12/19 12/12/19 Range/Units 08:01 08:01 05:55 WBC 10.23 (4.8-10.8) K/uL RBC 3.95 L (4.7-6.1) M/uL Hgb 12.3 L (14.0-18.0) g/dL Hct 38.3 L (42-52) % MCV 97.0 (80-100) fL MCH 31.1 (25-34) pg MCHC 32.1 (32-36) g/dL RDW Std Deviation 48.3 H (36.4-46.3) fL RDW Coeff of Ruddy 13.5 (11.5-14.5) % Plt Count 298 (130-400) K/uL MPV 9.7 (7.4-10.4) fL Immature Gran % (Auto) 1.9 % Neut % (Auto) 66.6 % Lymph % (Auto) 14.5 % [place] % (Auto) 14.3 % Eos % (Auto) 2.3 % Baso % (Auto) 0.4 % Neut # (Auto) 6.82 H (1.4-6.5) K/uL Lymph # (Auto) 1.48 (1.2-3.4) K/uL [place] # (Auto) 1.46 H (0.11-0.59) K/uL Eos # (Auto) 0.24 (0-0.5) K/uL Baso # (Auto) 0.04 (0-0.2) K/uL Immature Gran # (Auto) 0.19 H (0.00-0.02) K/uL Sodium 142 (136-145) mmol/L Potassium 3.9 (3.5-5.1) mmol/L Chloride 109 H (98-107) mmol/L Carbon Dioxide 29 (21-32) mmol/L Anion Gap 4.0 (3-11) BUN 24 H (7-18) mg/dl Creatinine 1.02 (0.6-1.4) mg/dl Est Cr Clr Drug Dosing 110.7 ml/min Est GFR ( Amer) 102.4 Est GFR (Non-Af Amer) 88.4 BUN/Creatinine Ratio 23.0 H (10-20) Glucose 134 H (70-99) mg/dl POC Glucose 131 H (70-99) mg/dl Calcium 8.8 (8.5-10.1) mg/dl Phosphorus 2.2 L D (2.5-4.9) mg/dl Magnesium 2.4 (1.8-2.4) mg/dl Triglycerides 219 H (0-150) mg/dl 12/12/19 12/11/19 Range/Units 01:00 18:10 WBC (4.8-10.8) K/uL RBC (4.7-6.1) M/uL Hgb (14.0-18.0) g/dL Hct (42-52) % MCV (80-100) fL MCH (25-34) pg MCHC (32-36) g/dL RDW Std Deviation (36.4-46.3) fL RDW Coeff of Ruddy (11.5-14.5) % Plt Count (130-400) K/uL MPV (7.4-10.4) fL Immature Gran % (Auto) % Neut % (Auto) % Lymph % (Auto) % [place] % (Auto) % Eos % (Auto) % Baso % (Auto) % Neut # (Auto) (1.4-6.5) K/uL Lymph # (Auto) (1.2-3.4) K/uL [place] # (Auto) (0.11-0.59) K/uL Eos # (Auto) (0-0.5) K/uL Baso # (Auto) (0-0.2) K/uL Immature Gran # (Auto) (0.00-0.02) K/uL Sodium (136-145) mmol/L Potassium (3.5-5.1) mmol/L Chloride (98-107) mmol/L Carbon Dioxide (21-32) mmol/L Anion Gap (3-11) BUN (7-18) mg/dl Creatinine (0.6-1.4) mg/dl Est Cr Clr Drug Dosing ml/min Est GFR ( Amer) Est GFR (Non-Af Amer) BUN/Creatinine Ratio (10-20) Glucose (70-99) mg/dl POC Glucose 131 H 129 H (70-99) mg/dl Calcium (8.5-10.1) mg/dl Phosphorus (2.5-4.9) mg/dl Magnesium (1.8-2.4) mg/dl Triglycerides (0-150) mg/dl Medications Administered Current Inpatient Medications Enoxaparin Sodium (Enoxaparin Inj 40 Mg/0.4 Ml Syr) 40 mg SQ QAM [facility] Stop: 01/10/20 08:59 Last Admin: 12/12/19 08:46 Dose: 40 mg Documented by: Hydralazine HCl (Hydralazine Hcl 20 Mg/Ml Vial) 10 mg IV Q4H PRN PRN Reason: SBP >180 Stop: 01/05/20 15:51 Hydromorphone HCl (Hydromorphone [employer] Insulation Supervisor 30 Mg/30 Ml) 30 mg IV PRN PRN; Protocol PRN Reason: CHIEF JAILER Pain Titration Stop: 12/23/19 06:19 Last Admin: 12/11/19 22:37 Dose: 30 mg Documented by: Lorazepam (Ativan) 1 mg in 2 mls @ 2 mls/min IV Q6HWA PRN PRN Reason: Anxiety Stop: 01/07/20 14:17 Promethazine HCl 25 mg/ Sodium (Chloride) 51 mls @ 204 mls/hr IV Q6H PRN PRN Reason: Nausea And Vomiting Stop: 01/07/20 14:17 Promethazine HCl 12.5 mg/ (Sodium Chloride) 50.5 mls @ 204 mls/hr IV Q6H PRN PRN Reason: Nausea And Vomiting Stop: 01/07/20 14:17 Sodium Chloride (Nss 1000ml) 1,000 mls @ 15 mls/hr IV .Q24H [facility] Stop: 12/23/19 06:20 Last Admin: 12/11/19 21:23 Dose: 15 mls/hr Documented by: Pantoprazole Sodium 40 mg/ (Syringe) 10 mls @ 5 mls/min IV DAILY@1100 [facility] Stop: 01/11/20 10:59 Last Admin: 12/12/19 11:40 Dose: 5 mls/min Documented by: Dextrose (D10w) 1,000 mls @ 0 mls/hr IV .Q0M PRN PRN Reason: protocol (see label comments) Stop: 01/10/20 12:40 Nutrition (Parenteral) 1,919 (ml/ TPN BAG) 1,920 mls @ 80 mls/hr IV .Q24H [facility]; Protocol Stop: 12/12/19 15:59 Last Admin: 12/11/19 16:58 Dose: 80 mls/hr Documented by: Potassium Phosphate 15 mmol/ (Sodium Chloride) 255 mls @ 88 mls/hr IV NOW ONE Stop: 12/12/19 12:38 Last Admin: 12/12/19 11:40 Dose: 88 mls/hr Documented by: Nutrition (Parenteral) 1,919 (ml/ TPN BAG) 1,920 mls @ 80 mls/hr IV .Q24H [facility]; Protocol Stop: 12/13/19 15:59 Ampicillin Sodium/Sulbactam Sodium 3,000 mg/ Sodium Chloride 108 mls @ 216 mls/hr IV Q6 [facility]; Protocol Stop: 12/22/19 11:59 Last Admin: 12/12/19 12:10 Dose: 216 mls/hr Documented by: Lisinopril (Lisinopril 10 Mg Tab) 10 mg PO QAM [facility] Stop: 01/10/20 08:59 Last Admin: 12/12/19 08:45 Dose: 10 mg Documented by: Miscellaneous Information (Tpn/Ppn Consult Pharmacy) 1 ea N/A UD PRN PRN Reason: Consult Stop: 01/10/20 12:48 Naloxone HCl (Naloxone Hcl 0.4 Mg/1 Ml Vial/Carp) 0.1 mg IV Q5M PRN; Protocol PRN Reason: Oversedation/Resp Depression Stop: 12/23/19 06:19 Ondansetron HCl (Ondansetron Inj 2 Mg/Ml 2 Ml Vial) 4 mg IV Q6H PRN PRN Reason: Nausea Stop: 01/05/20 09:09 Ondansetron HCl (Ondansetron Inj 2 Mg/Ml 2 Ml Vial) 4 mg IV 4XDQ4H PRN PRN Reason: Nausea Stop: 01/07/20 14:17 Resident Activity Tracking Resident Involvement: Resident Care Provided Care Provided: Adult Hospital Medicine (1) Hyperlipidemia Hyperlipidemia type: mixed hyperlipidemia Qualified Code(s): E78.2 - Mixed hyperlipidemia (2) Hypertension Hypertension type: essential hypertension Qualified Code(s): I10 - Essential (primary) hypertension
[2019-12-12 08:21] LABS: Hematocrit (blood only) 38.3 % (42-52); Hemoglobin 12.3 g/dL (14.0-18.0); Mean Corpuscular Hemoglobin 31.1 pg (25-34); Mean Corpuscular Hgb Conc 32.1 g/dL (32-36); Mean Platelet Volume 9.7 fL (7.4-10.4); Platelet Count 298 K/uL (130-400); RDW Coefficient of Variation 13.5 % (11.5-14.5); RDW Standard Deviation 48.3 fL (36.4-46.3); Red Blood Count 3.95 M/uL (4.7-6.1); White Blood Count 10.23 K/uL (4.8-10.8)
[2019-12-12] MEDS: lisinopril 10 MG TAB PO SCH (08:45)
[2019-12-12] MEDS: ENOXAPARIN INJ 40 MG/0.4 ML SYR SQ SCH (08:46)
[2019-12-12 08:48] LABS: Basophils # (auto) 0.04 K/uL (0-0.2); Basophils % (auto) 0.4 %; Eosinophils # (auto) 0.24 K/uL (0-0.5); Eosinophils % (auto) 2.3 %; Immature Granulocytes # (auto) 0.19 K/uL (0.00-0.02); Immature Granulocytes % (auto) 1.9 %; Lymphocytes # (auto) 1.48 K/uL (1.2-3.4); Lymphocytes % (auto) 14.5 %; Monocytes # (auto) 1.46 K/uL (0.11-0.59); Monocytes % (auto) 14.3 %; Neutrophils # (auto) 6.82 K/uL (1.4-6.5); Neutrophils % (auto) 66.6 %
[2019-12-12 08:49] LABS: Calcium 8.8 mg/dl (8.5-10.1); Creatinine Clr Calc Pharmacy 110.7 ml/min; Est GFR (African American) 102.4; Est GFR (Non-African American) 88.4; Magnesium 2.4 mg/dl (1.8-2.4); Potassium 3.9 mmol/L (3.5-5.1)
[2019-12-12 08:53] LABS: Phosphorus 2.2 mg/dl (2.5-4.9)
[2019-12-12] MEDS ORDERED: POTASSIUM PHOS 3 MMOL/1 ML INFUSION IV STA (09:32)
[2019-12-12] MEDS ORDERED: POTASSIUM PHOSPHATE 15 MMOL in SODIUM CHLORIDE 0.9% 250 ML IV ONE (09:45)
[2019-12-12] MEDS: PANTOprazole 40 MG in SYRINGE 0 ML IV SCH (11:40)
[2019-12-12] MEDS: AMPICILLIN/SULBACTAM SOD 3,000 MG in 0.9 % SODIUM CHLORIDE 100 ML IV SCH ×3 (12:10→23:55)
[2019-12-12] MEDS ORDERED: TPN IV SCH (16:00)
[2019-12-12] MEDS ORDERED: PERIPHERAL PN IV SCH (16:00)
--- NOTE | 2019-12-12 18:43 | XRay Report ---
KUB CLINICAL HISTORY: NG tube placement COMPARISON STUDY: KUB December 11, 2019. CT of the abdomen and pelvis December 08, 2019. FINDINGS: A small amount of pneumoperitoneum is again suspected. Moderate dilatation of multiple smal l bowel loops is noted. This is partially imaged on this exam and similar to prior exam. Tip of nasog astric tube projects over the proximal body of the stomach. IMPRESSION: 1. Tip of nasogastric tube projects over the proximal body of the stomach. 2. Persistent small bowel dilatation. This may reflect a small bowel obstruction or ileus. 3. Redemonstration of suspected pneumoperitoneum. ACT 112: Negative or not required by law. Electronically signed by: Arturo Storey M.D. 12/12/2019 6:42 PM
[2019-12-13] MEDS: AMPICILLIN/SULBACTAM SOD 3,000 MG in 0.9 % SODIUM CHLORIDE 100 ML IV SCH ×3 (06:06→17:19)
[2019-12-13] MEDS: SODIUM CHLORIDE 0.9% 1000ML 1,000 ML IV SCH (06:07)
--- NOTE | 2019-12-13 06:43 | Surgery Progress Note ---
Date of Service December 13, 2019 Assessment & Plan (1) Peritonitis: Patient is afebrile Adequate urine output NG output is nonbilious gastric fluid-patient taking ice chips Some colostomy output Abdomen is still moderately distended with decreased bowel sounds He is using his Dilaudid DISPLAY DESIGNER fair amount-encouraged to try to decrease On PPN-routine/calories should help We will try to clamp NG some-continue to ambulate in the hallway Await return of GI function Dr Gricelda López covering tonight and Dr Tenorio covering over weekend Admission and Anticipated Discharge Date Admission Date: December 06, 2019 Results & Data ([facility]) Vital Signs (Past 12 Hours) Vital Signs Temp Pulse Pulse Resp BP BP Pulse Ox 12/13/19 04:22 37.0 C 79 18 159/87 H 94 12/12/19 23:50 37.3 C 77 16 159/90 H 94 12/12/19 20:36 165/92 H 12/12/19 19:25 37.3 C 71 18 169/93 H 93 PG Care Time/CCT Total # of Minutes Spent Total Time Spent with Patient: Total time spent is greater than 50% in coordination of care (as documented) at patient's floor/unit and/or counseling patient: Coding Level of Care Code None Diagnoses Peritonitis K65.9
[2019-12-13] MEDS: HYDROmorphone PCA 30 MG/30 ML IV PRN (07:19)
[2019-12-13 08:11] LABS: Hematocrit (blood only) 39.9 % (42-52); Hemoglobin 12.9 g/dL (14.0-18.0); Mean Corpuscular Hemoglobin 31.2 pg (25-34); Mean Corpuscular Hgb Conc 32.3 g/dL (32-36); Mean Corpuscular Volume 96.4 fL (80-100); Mean Platelet Volume 9.6 fL (7.4-10.4); Platelet Count 354 K/uL (130-400); RDW Coefficient of Variation 13.5 % (11.5-14.5); Red Blood Count 4.14 M/uL (4.7-6.1); White Blood Count 11.32 K/uL (4.8-10.8)
[2019-12-13 08:39] LABS: BUN Creatinine Ratio 24.7 (10-20); Calcium 8.9 mg/dl (8.5-10.1); Est GFR (African American) 123.2; Est GFR (Non-African American) 106.3; Potassium 3.7 mmol/L (3.5-5.1)
[2019-12-13 08:42] LABS: Magnesium 2.1 mg/dl (1.8-2.4); Phosphorus 2.8 mg/dl (2.5-4.9)
[2019-12-13 08:52] LABS: Basophils # (auto) 0.04 K/uL (0-0.2); Basophils % (auto) 0.4 %; Eosinophils # (auto) 0.29 K/uL (0-0.5); Eosinophils % (auto) 2.6 %; Immature Granulocytes # (auto) 0.42 K/uL (0.00-0.02); Immature Granulocytes % (auto) 3.7 %; Lymphocytes # (auto) 1.43 K/uL (1.2-3.4); Lymphocytes % (auto) 12.6 %; Monocytes # (auto) 1.12 K/uL (0.11-0.59); Monocytes % (auto) 9.9 %; Neutrophils # (auto) 8.02 K/uL (1.4-6.5); Neutrophils % (auto) 70.8 %; Polychromasia 1+
[2019-12-13] MEDS: ENOXAPARIN INJ 40 MG/0.4 ML SYR SQ SCH (09:34)
[2019-12-13] MEDS: lisinopril 10 MG TAB PO SCH (09:35)
--- NOTE | 2019-12-13 11:11 | Hospitalist Progress Note ---
Date of Service December 13, 2019 Assessment & Plan (1) Diverticulitis of colon with perforation: 44 yo M PMHx HTN, MICH on CPAP admitted for diverticulitis with contained perforation. Now s/p laparotomy and bowel resection with generation of colostomy Diverticulitis w/ worsening perforation and pneumoperitoneum: - s/p laparotomy and bowel resection - admission CT findings consistent with perforated acute sigmoid diverticulitis - Radiology report stated several locules of extraluminal gas with moderate pericolonic inflammation and fluid - Stat CTAP 12/07: - IV contrast showed progressive perforation of the acute sigmoid diverticulitis with pneumoperitoneum scattered throughout the abdomen and pelvis. - There was a 5.9 x 1.9 cm developing abscess within the left lower quadrant - KUB 12/10 demonstrated: 1. Status post placement of an enteric tube, distal tip in the region of the proximal gastric body with side-port near the gastroesophageal junction. 2. Persistent small bowel distention with air also noted within the large bowel. 3. Trace pneumoperitoneum. - Continue IV Unasyn - Gen. surgery: - continue NG on LIW suction with intermittent clamping throughout the day; holding diet at sips and chips today HTN: - continue lisinopril at this time - Hydralazine 10mg IV q4h PRN SBP >180 Hyperlipidemia: - continue home atorvastatin MICH: - Continue home CPAP (2) Hyperlipidemia: (3) MICH (obstructive sleep apnea): (4) Hypertension: Admission and Anticipated Discharge Date Admission Date: December 06, 2019 Supervising Physician Co-Signing Physician Notes Patient seen and examined with PGY-2 Dr. Machuca. Agree with history, exam findings, assessment and plan of care as outlined. In brief, Mr. Simmons is a 44 year old male with history of HTN, HLD and MICH admitted with diverticulitis with perforation. No overnight events. Reports pain in the rectum/spasm. Trying not to use GARAGEMAN, but did have to use the GARAGEMAN earlier today due to rectal pain. Nursing notes, vital signs, labs and imaging reviewed. Abdomen with + bowel sounds, soft, nontender. Dressing over the anterior abdomen is clean, dry and intact. Ostomy with brown, semi-solid output. 1. Diverticulitis with perf and pneumoperitoneum now POD #5 lap and bowel re section. Unasyn q8h (day 7 of 14), LR at 125. Continue parental nutrition. Trend CBC, BMP. NG clamped today and did well. Ostomy with output. Diet sips and chips. Hopeful to advance diet tomorrow to clears if he continues to do well. 2. Rectal pain. Per surgery suggestion, will try hydrocortisone suppository. 3. HTN. Continue home lisinopril. 4. HLD. Continue home atorvastatin. Dispo: pending clinical improvement. Subjective Tolerated intermittent clamping throughout the day with only irritation coming in relation to his rectum feeling irritated and somewhat painful; has started noticing increased output when he has been walking around and feels like he got some solid output this morning and this afternoon. Denies fevers, chills, sweat s, nausea, vomiting, or worsening abdominal pain. Review of Systems Review of Systems: All systems reviewed & are unremarkable except as noted in Subjective Physical Exam Constitutional: WD/WN, vitals as above Eyes: PERRL, conjunctivae normal, anicteric sclerae Neck: normal visual inspection Respiratory: normal respiratory effort, lungs clear to auscultation Cardiovascular: Rate/Rhythm: regular rate and regular rhythm Heart Sounds: no gallop, no murmur and no cardiac rub Gastrointestinal (Abdomen): Inspection/Auscultation: abdomen not distended Percussion/Palpation: abdomen soft and + tympanic to percussion; abdomen nontender Skin: no rashes, warm and dry Psychiatric: Orientation: alert and oriented x 3 Results & Data Results & Data ([facility]) Vital Signs (Past 12 Hours) Vital Signs Temp Pulse Pulse Resp BP BP Pulse Ox 12/13/19 08:39 36.7 C 81 18 163/98 H 94 12/13/19 04:22 37.0 C 79 18 159/87 H 94 12/12/19 23:50 37.3 C 77 16 159/90 H 94 Laboratory Results 12/13/19 12/13/19 12/13/19 Range/Units 13:21 07:44 07:44 WBC 11.32 H (4.8-10.8) K/uL RBC 4.14 L (4.7-6.1) M/uL Hgb 12.9 L (14.0-18.0) g/dL Hct 39.9 L (42-52) % MCV 96.4 (80-100) fL MCH 31.2 (25-34) pg MCHC 32.3 (32-36) g/dL RDW Std Deviation 48.0 H (36.4-46.3) fL RDW Coeff of Ruddy 13.5 (11.5-14.5) % Plt Count 354 (130-400) K/uL MPV 9.6 (7.4-10.4) fL Immature Gran % (Auto) 3.7 % Neut % (Auto) 70.8 % Lymph % (Auto) 12.6 % Gosper % (Auto) 9.9 % Eos % (Auto) 2.6 % Baso % (Auto) 0.4 % Neut # (Auto) 8.02 H (1.4-6.5) K/uL Lymph # (Auto) 1.43 (1.2-3.4) K/uL [place] # (Auto) 1.12 H (0.11-0.59) K/uL Eos # (Auto) 0.29 (0-0.5) K/uL Baso # (Auto) 0.04 (0-0.2) K/uL Immature Gran # (Auto) 0.42 H (0.00-0.02) K/uL Polychromasia 1+ Sodium 141 (136-145) mmol/L Potassium 3.7 (3.5-5.1) mmol/L Chloride 109 H (98-107) mmol/L Carbon Dioxide 25 (21-32) mmol/L Anion Gap 7.0 (3-11) BUN 20 H (7-18) mg/dl Creatinine 0.83 (0.6-1.4) mg/dl Est Cr Clr Drug Dosing 136.0 ml/min Est GFR ( Amer) 123.2 Est GFR (Non-Af Amer) 106.3 BUN/Creatinine Ratio 24.7 H (10-20) Glucose 116 H (70-99) mg/dl POC Glucose 118 H (70-99) mg/dl Calcium 8.9 (8.5-10.1) mg/dl Phosphorus 2.8 (2.5-4.9) mg/dl Magnesium 2.1 (1.8-2.4) mg/dl 12/13/19 12/12/19 12/12/19 Range/Units 05:48 23:46 18:14 WBC (4.8-10.8) K/uL RBC (4.7-6.1) M/uL Hgb (14.0-18.0) g/dL Hct (42-52) % MCV (80-100) fL MCH (25-34) pg MCHC (32-36) g/dL RDW Std Deviation (36.4-46.3) fL RDW Coeff of Ruddy (11.5-14.5) % Plt Count (130-400) K/uL MPV (7.4-10.4) fL Immature Gran % (Auto) % Neut % (Auto) % Lymph % (Auto) % Gosper % (Auto) % Eos % (Auto) % Baso % (Auto) % Neut # (Auto) (1.4-6.5) K/uL Lymph # (Auto) (1.2-3.4) K/uL [place] # (Auto) (0.11-0.59) K/uL Eos # (Auto) (0-0.5) K/uL Baso # (Auto) (0-0.2) K/uL Immature Gran # (Auto) (0.00-0.02) K/uL Polychromasia Sodium (136-145) mmol/L Potassium (3.5-5.1) mmol/L Chloride (98-107) mmol/L Carbon Dioxide (21-32) mmol/L Anion Gap (3-11) BUN (7-18) mg/dl Creatinine (0.6-1.4) mg/dl Est Cr Clr Drug Dosing ml/min Est GFR ( Amer) Est GFR (Non-Af Amer) BUN/Creatinine Ratio (10-20) Glucose (70-99) mg/dl POC Glucose 119 H 107 H 115 H (70-99) mg/dl Calcium (8.5-10.1) mg/dl Phosphorus (2.5-4.9) mg/dl Magnesium (1.8-2.4) mg/dl Medications Administered Current Inpatient Medications Enoxaparin Sodium (Enoxaparin Inj 40 Mg/0.4 Ml Syr) 40 mg SQ QAM [facility] Stop: 01/10/20 08:59 Last Admin: 12/13/19 09:34 Dose: 40 mg Documented by: Hydralazine HCl (Hydralazine Hcl 20 Mg/Ml Vial) 10 mg IV Q4H PRN PRN Reason: SBP >180 Stop: 01/05/20 15:51 Hydrocortisone (Hydrocortisone Acetate 25 Mg Supp) 25 mg WA Q6 PRN PRN Reason: Pain Stop: 01/12/20 13:10 Last Admin: 12/13/19 16:04 Dose: 25 mg Documented by: Hydromorphone HCl (Hydromorphone Orthotist Or Prosthetist 30 Mg/30 Ml) 30 mg IV PRN PRN; Protocol PRN Reason: GARAGEMAN Pain Titration Stop: 12/23/19 06:19 Last Admin: 12/13/19 07:19 Dose: 30 mg Documented by: Lorazepam (Ativan) 1 mg in 2 mls @ 2 mls/min IV Q6HWA PRN PRN Reason: Anxiety Stop: 01/07/20 14:17 Promethazine HCl 25 mg/ Sodium (Chloride) 51 mls @ 204 mls/hr IV Q6H PRN PRN Reason: Nausea And Vomiting Stop: 01/07/20 14:17 Promethazine HCl 12.5 mg/ (Sodium Chloride) 50.5 mls @ 204 mls/hr IV Q6H PRN PRN Reason: Nausea And Vomiting Stop: 01/07/20 14:17 Sodium Chloride (Nss 1000ml) 1,000 mls @ 15 mls/hr IV .Q24H [facility] Stop: 12/23/19 06:20 Last Admin: 12/13/19 06:07 Dose: 15 mls/hr Documented by: Pantoprazole Sodium 40 mg/ (Syringe) 10 mls @ 5 mls/min IV DAILY@1100 [facility] Stop: 01/11/20 10:59 Last Admin: 12/13/19 11:33 Dose: 5 mls/min Documented by: Dextrose (D10w) 1,000 mls @ 0 mls/hr IV .Q0M PRN PRN Reason: protocol (see label comments) Stop: 01/10/20 12:40 Ampicillin Sodium/Sulbactam Sodium 3,000 mg/ Sodium Chloride 108 mls @ 216 mls/hr IV Q6 [facility]; Protocol Stop: 12/22/19 11:59 Last Infusion: 12/13/19 12:03 Dose: Infused Documented by: Nutrition (Parenteral) 1,919 (ml/ TPN BAG) 1,920 mls @ 80 mls/hr IV .Q24H [facility]; Protocol Stop: 12/14/19 15:59 Last Admin: 12/13/19 16:04 Dose: 80 mls/hr Documented by: Lisinopril (Lisinopril 10 Mg Tab) 10 mg PO QAM [facility] Stop: 01/10/20 08:59 Last Admin: 12/13/19 09:35 Dose: 10 mg Documented by: Miscellaneous Information (Tpn/Ppn Consult Pharmacy) 1 ea N/A UD PRN PRN Reason: Consult Stop: 01/10/20 12:48 Naloxone HCl (Naloxone Hcl 0.4 Mg/1 Ml Vial/Carp) 0.1 mg IV Q5M PRN; Protocol PRN Reason: Oversedation/Resp Depression Stop: 12/23/19 06:19 Ondansetron HCl (Ondansetron Inj 2 Mg/Ml 2 Ml Vial) 4 mg IV Q6H PRN PRN Reason: Nausea Stop: 01/05/20 09:09 Ondansetron HCl (Ondansetron Inj 2 Mg/Ml 2 Ml Vial) 4 mg IV 4XDQ4H PRN PRN Reason: Nausea Stop: 01/07/20 14:17 Resident Activity Tracking Resident Involvement: Resident Care Provided Care Provided: Adult Hospital Medicine (1) Hyperlipidemia Hyperlipidemia type: mixed hyperlipidemia Qualified Code(s): E78.2 - Mixed hyperlipidemia (2) Hypertension Hypertension type: essential hypertension Qualified Code(s): I10 - Essential (primary) hypertension
[2019-12-13] MEDS: PANTOprazole 40 MG in SYRINGE 0 ML IV SCH (11:33)
[2019-12-13] MEDS ORDERED: HYDROCORTISONE ACETATE 25 MG SUPP PR PRN (13:11)
[2019-12-13] MEDS ORDERED: TPN IV SCH (16:00)
[2019-12-13] MEDS ORDERED: PERIPHERAL PN IV SCH (16:00)
[2019-12-14] MEDS: AMPICILLIN/SULBACTAM SOD 3,000 MG in 0.9 % SODIUM CHLORIDE 100 ML IV SCH ×5 (06:03→23:33)
--- NOTE | 2019-12-14 07:57 | Hospitalist Progress Note ---
Date of Service December 14, 2019 Assessment & Plan (1) Diverticulitis of colon with perforation: 44 yo M PMHx HTN, MICH on CPAP admitted for diverticulitis with contained perforation. Now s/p laparotomy and bowel resection with generation of colostomy Diverticulitis w/ worsening perforation and pneumoperitoneum: - s/p laparotomy and bowel resection - admission CT findings consistent with perforated acute sigmoid diverticulitis - Radiology report stated several locules of extraluminal gas with moderate pericolonic inflammation and fluid - Stat CTAP 12/07: - IV contrast showed progressive perforation of the acute sigmoid diverticulitis with pneumoperitoneum scattered throughout the abdomen and pelvis. - There was a 5.9 x 1.9 cm developing abscess within the left lower quadrant - KUB 12/10 demonstrated: 1. Status post placement of an enteric tube, distal tip in the region of the proximal gastric body with side-port near the gastroesophageal junction. 2. Persistent small bowel distention with air also noted within the large bowel. 3. Trace pneumoperitoneum. - Continue IV Unasyn - Gen. surgery:pulled NG tube today, advance to sips of clear liquids today with potential for further advancement tomorrow HTN: - continue lisinopril at this time - Hydralazine 10mg IV q4h PRN SBP >180 Hyperlipidemia: - continue home atorvastatin MICH: - Continue home CPAP (2) Hyperlipidemia: (3) MICH (obstructive sleep apnea): (4) Hypertension: Admission and Anticipated Discharge Date Admission Date: December 06, 2019 Supervising Physician Co-Signing Physician Notes Patient seen and examined with PGY-2 Dr. Machuca. Agree with history, exam findings, assessment and plan of care as outlined. In brief, Mr. Simmons is a 44 year old male with history of HTN, HLD and MICH admitted with diverticulitis with perforation. No overnight events. Has not required GRINDER OPERATOR TOOL. Did try the Anusol, but minimal improvement. However, is less bothered by this at this point. Nursing notes, vital signs, labs and imaging reviewed. Abdomen with + bowel sounds, soft, nontender. Dressing over the anterior abdomen is clean, dry and intact with serosang drainage on the inner dressing. Ostomy with brown, semi-solid output. 1. Diverticulitis with perf and pneumoperitoneum now POD #6 lap and bowel resection. Unasyn q8h (day 8 of 14), LR at 125. Continue parental nutrition. Trend CBC, BMP. NG removed. Advance to sips of clear liquids. Has IV morphine and PO Percocet for pain. Appreciate general surgery's continued care. 2. HTN. Continue home lisinopril. 3. HLD. Continue home atorvastatin Dispo: pending clinical improvement. Subjective Patient did well overnight with limited concerns other than sporadic feeling of chills, states that this has happened randomly and he originally thought this was the pain or the bacteria being cleared but was not sure if this was true since it has continued to happen sporadically. Since having his NG tube pulled he has tolerated oral intake well without nausea, vomiting, bloating, or worsened abdominal pain. Has noticed that the more he gets up and walks around within the room the better he does with his ostomy output Review of Systems Review of Systems: All systems reviewed & are unremarkable except as noted in Subjective Physical Exam Constitutional: WD/WN, vitals as above Eyes: PERRL, conjunctivae normal, anicteric sclerae Respiratory: normal respiratory effort, lungs clear to auscultation Cardiovascular: Rate/Rhythm: regular rate and regular rhythm Heart Sounds: no gallop, no murmur and no cardiac rub Gastrointestinal (Abdomen): Inspection/Auscultation: abdomen not distended Percussion/Palpation: abdomen soft and + tympanic to percussion; abdomen nontender Skin: no rashes, warm and dry Psychiatric: Orientation: alert and oriented x 3 Results & Data Results & Data ([facility]) Vital Signs (Past 12 Hours) Vital Signs Temp Pulse Pulse Resp BP BP Pulse Ox 12/14/19 04:00 37.0 C 74 16 155/96 H 95 12/14/19 00:12 37.0 C 79 18 153/92 H 96 12/13/19 20:11 37.5 C 80 16 166/86 H 97 Laboratory Results 12/14/19 12/14/19 12/14/19 Range/Units 12:21 07:38 05:55 Sodium 137 (136-145) mmol/L Potassium 4.0 (3.5-5.1) mmol/L Chloride 105 (98-107) mmol/L Carbon Dioxide 29 (21-32) mmol/L Anion Gap 3.0 (3-11) BUN 21 H (7-18) mg/dl Creatinine 0.89 (0.6-1.4) mg/dl Est Cr Clr Drug Dosing 126.9 ml/min Est GFR ( Amer) 119.7 Est GFR (Non-Af Amer) 103.3 BUN/Creatinine Ratio 23.0 H (10-20) Glucose 106 H (70-99) mg/dl POC Glucose 100 H 129 H (70-99) mg/dl Calcium 9.1 (8.5-10.1) mg/dl Phosphorus 3.1 (2.5-4.9) mg/dl Magnesium 2.2 (1.8-2.4) mg/dl 12/13/19 12/13/19 Range/Units 23:59 19:12 Sodium (136-145) mmol/L Potassium (3.5-5.1) mmol/L Chloride (98-107) mmol/L Carbon Dioxide (21-32) mmol/L Anion Gap (3-11) BUN (7-18) mg/dl Creatinine (0.6-1.4) mg/dl Est Cr Clr Drug Dosing ml/min Est GFR ( Amer) Est GFR (Non-Af Amer) BUN/Creatinine Ratio (10-20) Glucose (70-99) mg/dl POC Glucose 107 H 102 H (70-99) mg/dl Calcium (8.5-10.1) mg/dl Phosphorus (2.5-4.9) mg/dl Magnesium (1.8-2.4) mg/dl Medications Administered Current Inpatient Medications Enoxaparin Sodium (Enoxaparin Inj 40 Mg/0.4 Ml Syr) 40 mg SQ QAM [facility] Stop: 01/10/20 08:59 Last Admin: 12/14/19 09:37 Dose: 40 mg Documented by: Hydralazine HCl (Hydralazine Hcl 20 Mg/Ml Vial) 10 mg IV Q4H PRN PRN Reason: SBP >180 Stop: 01/05/20 15:51 Hydrocortisone (Hydrocortisone Acetate 25 Mg Supp) 25 mg NC Q6 PRN PRN Reason: Pain Stop: 01/12/20 13:10 Last Admin: 12/13/19 16:04 Dose: 25 mg Documented by: Lorazepam (Ativan) 1 mg in 2 mls @ 2 mls/min IV Q6HWA PRN PRN Reason: Anxiety Stop: 01/07/20 14:17 Promethazine HCl 25 mg/ Sodium (Chloride) 51 mls @ 204 mls/hr IV Q6H PRN PRN Reason: Nausea And Vomiting Stop: 01/07/20 14:17 Promethazine HCl 12.5 mg/ (Sodium Chloride) 50.5 mls @ 204 mls/hr IV Q6H PRN PRN Reason: Nausea And Vomiting Stop: 01/07/20 14:17 Pantoprazole Sodium 40 mg/ (Syringe) 10 mls @ 5 mls/min IV DAILY@1100 [facility] Stop: 01/11/20 10:59 Last Admin: 12/14/19 11:09 Dose: 5 mls/min Documented by: Dextrose (D10w) 1,000 mls @ 0 mls/hr IV .Q0M PRN PRN Reason: protocol (see label comments) Stop: 01/10/20 12:40 Ampicillin Sodium/Sulbactam Sodium 3,000 mg/ Sodium Chloride 108 mls @ 216 mls/hr IV Q6 [facility]; Protocol Stop: 12/22/19 11:59 Last Infusion: 12/14/19 11:38 Dose: Infused Documented by: Nutrition (Parenteral) 1,919 (ml/ TPN BAG) 1,920 mls @ 80 mls/hr IV .Q24H [facility]; Protocol Stop: 12/15/19 15:59 Last Admin: 12/14/19 16:24 Dose: 80 mls/hr Documented by: Lisinopril (Lisinopril 10 Mg Tab) 10 mg PO QAM [facility] Stop: 01/10/20 08:59 Last Admin: 12/14/19 09:37 Dose: 10 mg Documented by: Miscellaneous Information (Tpn/Ppn Consult Pharmacy) 1 ea N/A UD PRN PRN Reason: Consult Stop: 01/10/20 12:48 Morphine Sulfate (Morphine Sulfate 2 Mg/Ml Carp) 2 mg IV Q1H PRN PRN Reason: Pain Stop: 12/28/19 11:20 Naloxone HCl (Naloxone Hcl 0.4 Mg/1 Ml Vial/Carp) 0.1 mg IV Q5M PRN; Protocol PRN Reason: Oversedation/Resp Depression Stop: 12/23/19 06:19 Ondansetron HCl (Ondansetron Inj 2 Mg/Ml 2 Ml Vial) 4 mg IV Q6H PRN PRN Reason: Nausea Stop: 01/05/20 09:09 Ondansetron HCl (Ondansetron Inj 2 Mg/Ml 2 Ml Vial) 4 mg IV 4XDQ4H PRN PRN Reason: Nausea Stop: 01/07/20 14:17 Oxycodone/Acetaminophen (Oxycodone/Acetaminophen 5mg/325mg Tab) 1 tab PO Q4H PRN PRN Reason: Pain Stop: 12/28/19 11:10 Resident Activity Tracking Resident Involvement: Resident Care Provided Care Provided: Adult Hospital Medicine (1) Hyperlipidemia Hyperlipidemia type: mixed hyperlipidemia Qualified Code(s): E78.2 - Mixed hyperlipidemia (2) Hypertension Hypertension type: essential hypertension Qualified Code(s): I10 - Essential (primary) hypertension
[2019-12-14 08:39] LABS: Calcium 9.1 mg/dl (8.5-10.1); Creatinine Clr Calc Pharmacy 126.9 ml/min; Est GFR (African American) 119.7; Est GFR (Non-African American) 103.3; Magnesium 2.2 mg/dl (1.8-2.4); Phosphorus 3.1 mg/dl (2.5-4.9)
[2019-12-14] MEDS: lisinopril 10 MG TAB PO SCH (09:37)
[2019-12-14] MEDS: ENOXAPARIN INJ 40 MG/0.4 ML SYR SQ SCH (09:37)
--- NOTE | 2019-12-14 11:07 | Surgery Progress Note ---
Date of Service December 14, 2019 Assessment & Plan (1) Diverticulitis of colon with perforation: Postoperative day #6 status post Vinod procedure Colostomy is functioning No nausea with NG clamped We will start sips of clear liquids and discontinue NG tube Continue IV antibiotics LESLEY output is minimal Encouraged ambulation Would continue PPN for now until p.o. intake is better Admission and Anticipated Discharge Date Admission Date: December 06, 2019 Subjective Postoperative day #6 status post Vinod procedure. Had been complaining of a burning sensation in the anal area. That has decreased significantly today. He has had no drainage there. Denies nausea with intermittent clamping of his NG tube Colostomy is functioning with stool output LESLEY had 15 cc out yesterday and 5 cc out over the last shift, all appears serosanguineous Physical Exam Gastrointestinal (Abdomen): Inspection/Auscultation: + abdomen distended (Mild) and + abdominal surgical incision (Clean, dry and intact) Percussion/Palpation: abdomen soft Bowel sounds are present and of normal pitch. Colostomy appears healthy and there is stool in the bag. Results & Data ([facility]) Vital Signs (Past 12 Hours) Vital Signs Temp Pulse Pulse Resp BP BP Pulse Ox 12/14/19 09:01 36.8 C 78 149/92 H 12/14/19 08:51 37.0 C 78 18 163/111 H 96 12/14/19 04:00 37.0 C 74 16 155/96 H 95 12/14/19 00:12 37.0 C 79 18 153/92 H 96
[2019-12-14] MEDS: PANTOprazole 40 MG in SYRINGE 0 ML IV SCH (11:09)
[2019-12-14] MEDS ORDERED: oxyCODONE/ACETAMINOPHEN 5mg/325mg TAB PO PRN (11:11)
[2019-12-14] MEDS ORDERED: MoRPHine SULFATE 2 MG/ML CARP IV PRN (11:21)
[2019-12-14] MEDS: SODIUM CHLORIDE 0.9% 1000ML 1,000 ML IV SCH (12:00)
[2019-12-14] MEDS ORDERED: TPN IV SCH (16:00)
[2019-12-14] MEDS ORDERED: PERIPHERAL PN IV SCH (16:00)
[2019-12-15] MEDS: AMPICILLIN/SULBACTAM SOD 3,000 MG in 0.9 % SODIUM CHLORIDE 100 ML IV SCH ×4 (05:56→23:51)
[2019-12-15 06:14] LABS: Basophils # (auto) 0.02 K/uL (0-0.2); Basophils % (auto) 0.2 %; Eosinophils # (auto) 0.23 K/uL (0-0.5); Eosinophils % (auto) 1.8 %; Hematocrit (blood only) 39.9 % (42-52); Hemoglobin 13.7 g/dL (14.0-18.0); Immature Granulocytes # (auto) 0.58 K/uL (0.00-0.02); Immature Granulocytes % (auto) 4.6 %; Lymphocytes # (auto) 1.46 K/uL (1.2-3.4); Lymphocytes % (auto) 11.5 %; Mean Corpuscular Hemoglobin 32.2 pg (25-34); Mean Corpuscular Hgb Conc 34.3 g/dL (32-36); Mean Corpuscular Volume 93.7 fL (80-100); Mean Platelet Volume 9.5 fL (7.4-10.4); Monocytes % (auto) 8.7 %; Neutrophils # (auto) 9.31 K/uL (1.4-6.5); Neutrophils % (auto) 73.2 %; Platelet Count 446 K/uL (130-400); RDW Coefficient of Variation 13.2 % (11.5-14.5); RDW Standard Deviation 45.1 fL (36.4-46.3); Red Blood Count 4.26 M/uL (4.7-6.1)
[2019-12-15 06:40] LABS: BUN Creatinine Ratio 20.6 (10-20); Calcium 8.8 mg/dl (8.5-10.1); Creatinine Clr Calc Pharmacy 120.1 ml/min; Est GFR (Non-African American) 97.5; Magnesium 2.2 mg/dl (1.8-2.4); Potassium 3.9 mmol/L (3.5-5.1)
[2019-12-15] MEDS: ENOXAPARIN INJ 40 MG/0.4 ML SYR SQ SCH (08:17)
[2019-12-15] MEDS: lisinopril 10 MG TAB PO SCH (08:17)
--- NOTE | 2019-12-15 10:11 | Surgery Progress Note ---
Date of Service December 15, 2019 Assessment & Plan (1) Diverticulitis of colon with perforation: POD#6 Vinod's procedure. Doing well but still distended with hypoactive bowel tones on exam. Would continue clear liquids for today. No new recommendations. Continue antibiotics - leukocytosis is improving. Present on Admission?: Yes Admission and Anticipated Discharge Date Admission Date: December 06, 2019 Subjective Did well with ng tube out. Has been sipping on liquids with no increase nausea/ no vomiting. ostomy functioning. Review of Systems Review of Systems: All systems reviewed & are unremarkable except as noted in HPI & below Physical Exam Constitutional: WD/WN, vitals as above Respiratory: normal respiratory effort, lungs clear to auscultation Cardiovascular: RRR, no murmur, no edema Gastrointestinal (Abdomen): Inspection/Auscultation: + abdomen distended Percussion/Palpation: + abdomen tender (mild) and abdomen soft; no guarding ostomy functioning with liquid dark stool incision is clean, roshni drain in place Neurologic: moves all extremities; no focal motor deficits Psychiatric: A+Ox3, euthymic affect Results & Data ([facility]) Vital Signs (Past 12 Hours) Vital Signs Temp Pulse Pulse Resp BP BP Pulse Ox 12/15/19 08:15 37.1 C 78 16 148/93 H 95 12/14/19 23:25 36.9 C 77 16 156/98 H 95 Laboratory Results Abnormal lab results 12/14/19 12/15/19 12/15/19 Range/Units 12:21 05:39 05:39 WBC 12.70 H (4.8-10.8) K/uL RBC 4.26 L (4.7-6.1) M/uL Hgb 13.7 L (14.0-18.0) g/dL Hct 39.9 L (42-52) % Plt Count 446 H (130-400) K/uL Neut # (Auto) 9.31 H (1.4-6.5) K/uL [place] # (Auto) 1.10 H (0.11-0.59) K/uL Immature Gran # (Auto) 0.58 H (0.00-0.02) K/uL BUN 19 H (7-18) mg/dl BUN/Creatinine Ratio 20.6 H (10-20) Glucose 117 H (70-99) mg/dl POC Glucose 100 H (70-99) mg/dl
[2019-12-15] MEDS: PANTOprazole 40 MG in SYRINGE 0 ML IV SCH (12:34)
--- NOTE | 2019-12-15 13:05 | Hospitalist Progress Note ---
Date of Service December 15, 2019 Assessment & Plan (1) Diverticulitis of colon with perforation: 44 yo M PMHx HTN, MICH on CPAP admitted for diverticulitis with contained perforation. Now s/p laparotomy and bowel resection with generation of colostomy Diverticulitis w/ worsening perforation and pneumoperitoneum: - s/p laparotomy and bowel resection - admission CT findings consistent with perforated acute sigmoid diverticulitis - Radiology report stated several locules of extraluminal gas with moderate pericolonic inflammation and fluid - Stat CTAP 12/07: - IV contrast showed progressive perforation of the acute sigmoid diverticulitis with pneumoperitoneum scattered throughout the abdomen and pelvis. - There was a 5.9 x 1.9 cm developing abscess within the left lower quadrant - KUB 12/10 demonstrated: 1. Status post placement of an enteric tube, distal tip in the region of the proximal gastric body with side-port near the gastroesophageal junction. 2. Persistent small bowel distention with air also noted within the large bowel. 3. Trace pneumoperitoneum. - Continue IV Unasyn - Gen. surgery: increase amount of clear liquids today (50% of meals) with continued increases tomorrow - potential for discontinuation of PPN tomorrow with toleration of increased intake HTN: - continue lisinopril at this time - Hydralazine 10mg IV q4h PRN SBP >180 Hyperlipidemia: - continue home atorvastatin MICH: - Continue home CPAP (2) Hyperlipidemia: (3) MICH (obstructive sleep apnea): (4) Hypertension: Admission and Anticipated Discharge Date Admission Date: December 06, 2019 Supervising Physician Co-Signing Physician Notes Patient seen and examined with PGY-2 Dr. Machuca. Agree with history, exam findings, assessment and plan of care as outlined. In brief, Mr. Simmons is a 44 year old male with history of HTN, HLD and MICH admitted with diverticulitis with perforation. No overnight events. Doing more clear liquids. Denies increased abdominal pain or new nausea/vomiting. Does have some irritation on the right side of this throat due to the NG tube. Trying to keep the throat lubricated to minimize the irritation. Nursing notes, vital signs, labs and imaging reviewed. Abdomen with + bowel sounds, soft, nontender. Dressing over the anterior abdomen is clean, dry and intact. Ostomy with brown, semi-solid output. 1. Diverticulitis with perf and pneumoperitoneum now POD #7 lap and bowel resection. Unasyn q8h (day 9 of 14). Continue parental nutrition, but with PO intake increasing, may be able to stop tomorrow. Trend CBC, BMP. NG removed. Clear liquids. Has IV morphine and PO Percocet for pain. 2. HTN. Continue home lisinopril. 3. HLD. Continue home atorvastatin. Dispo: pending clinical improvement. Subjective Patient tolerated liquids throughout the day without complications, continues to have good output through his ostomy and walked around with his . Has had some burping following drinking some goran sophie, and during that time he had slightly more abdominal pain but overall it has improved greatly. Review of Systems Review of Systems: All systems reviewed & are unremarkable except as noted in Subjective Physical Exam Constitutional: WD/WN, vitals as above Eyes: PERRL, conjunctivae normal, anicteric sclerae Neck: normal visual inspection Respiratory: normal respiratory effort, lungs clear to auscultation Cardiovascular: Rate/Rhythm: regular rate and regular rhythm Heart Sounds: no gallop, no murmur and no cardiac rub Gastrointestinal (Abdomen): Inspection/Auscultation: abdomen not distended Percussion/Palpation: abdomen soft and + tympanic to percussion; abdomen nontender Skin: no rashes, warm and dry Psychiatric: Orientation: alert and oriented x 3 Results & Data Results & Data ([facility]) Vital Signs (Past 12 Hours) Vital Signs Temp Pulse Resp BP Pulse Ox 12/15/19 08:15 37.1 C 78 16 148/93 H 95 Laboratory Results 12/15/19 12/15/19 Range/Units 05:39 05:39 WBC 12.70 H (4.8-10.8) K/uL RBC 4.26 L (4.7-6.1) M/uL Hgb 13.7 L (14.0-18.0) g/dL Hct 39.9 L (42-52) % MCV 93.7 (80-100) fL MCH 32.2 (25-34) pg MCHC 34.3 (32-36) g/dL RDW Std Deviation 45.1 (36.4-46.3) fL RDW Coeff of Ruddy 13.2 (11.5-14.5) % Plt Count 446 H (130-400) K/uL MPV 9.5 (7.4-10.4) fL Immature Gran % (Auto) 4.6 % Neut % (Auto) 73.2 % Lymph % (Auto) 11.5 % Hemphill % (Auto) 8.7 % Eos % (Auto) 1.8 % Baso % (Auto) 0.2 % Neut # (Auto) 9.31 H (1.4-6.5) K/uL Lymph # (Auto) 1.46 (1.2-3.4) K/uL Hemphill # (Auto) 1.10 H (0.11-0.59) K/uL Eos # (Auto) 0.23 (0-0.5) K/uL Baso # (Auto) 0.02 (0-0.2) K/uL Immature Gran # (Auto) 0.58 H (0.00-0.02) K/uL Sodium 138 (136-145) mmol/L Potassium 3.9 (3.5-5.1) mmol/L Chloride 107 (98-107) mmol/L Carbon Dioxide 28 (21-32) mmol/L Anion Gap 3.0 (3-11) BUN 19 H (7-18) mg/dl Creatinine 0.94 (0.6-1.4) mg/dl Est Cr Clr Drug Dosing 120.1 ml/min Est GFR ( Amer) 113.0 Est GFR (Non-Af Amer) 97.5 BUN/Creatinine Ratio 20.6 H (10-20) Glucose 117 H (70-99) mg/dl Calcium 8.8 (8.5-10.1) mg/dl Phosphorus 3.0 (2.5-4.9) mg/dl Magnesium 2.2 (1.8-2.4) mg/dl Medications Administered Current Inpatient Medications Enoxaparin Sodium (Enoxaparin Inj 40 Mg/0.4 Ml Syr) 40 mg SQ QAM [facility] Stop: 01/10/20 08:59 Last Admin: 12/15/19 08:17 Dose: 40 mg Documented by: Hydralazine HCl (Hydralazine Hcl 20 Mg/Ml Vial) 10 mg IV Q4H PRN PRN Reason: SBP >180 Stop: 01/05/20 15:51 Hydrocortisone (Hydrocortisone Acetate 25 Mg Supp) 25 mg WI Q6 PRN PRN Reason: Pain Stop: 01/12/20 13:10 Last Admin: 12/13/19 16:04 Dose: 25 mg Documented by: Lorazepam (Ativan) 1 mg in 2 mls @ 2 mls/min IV Q6HWA PRN PRN Reason: Anxiety Stop: 01/07/20 14:17 Promethazine HCl 25 mg/ Sodium (Chloride) 51 mls @ 204 mls/hr IV Q6H PRN PRN Reason: Nausea And Vomiting Stop: 01/07/20 14:17 Promethazine HCl 12.5 mg/ (Sodium Chloride) 50.5 mls @ 204 mls/hr IV Q6H PRN PRN Reason: Nausea And Vomiting Stop: 01/07/20 14:17 Pantoprazole Sodium 40 mg/ (Syringe) 10 mls @ 5 mls/min IV DAILY@1100 BALTA Stop: 01/11/20 10:59 Last Admin: 12/15/19 12:34 Dose: 5 mls/min Documented by: Dextrose (D10w) 1,000 mls @ 0 mls/hr IV .Q0M PRN PRN Reason: protocol (see label comments) Stop: 01/10/20 12:40 Ampicillin Sodium/Sulbactam Sodium 3,000 mg/ Sodium Chloride 108 mls @ 216 mls/hr IV Q6 BALTA; Protocol Stop: 12/22/19 11:59 Last Infusion: 12/15/19 13:03 Dose: Infused Documented by: Nutrition (Parenteral) 1,919 (ml/ TPN BAG) 1,920 mls @ 80 mls/hr IV .Q24H BALTA; Protocol Stop: 12/16/19 15:59 Last Admin: 12/15/19 16:01 Dose: 80 mls/hr Documented by: Lisinopril (Lisinopril 10 Mg Tab) 10 mg PO QAM BALTA Stop: 01/10/20 08:59 Last Admin: 12/15/19 08:17 Dose: 10 mg Documented by: Miscellaneous Information (Tpn/Ppn Consult Pharmacy) 1 ea N/A UD PRN PRN Reason: Consult Stop: 01/10/20 12:48 Morphine Sulfate (Morphine Sulfate 2 Mg/Ml Carp) 2 mg IV Q1H PRN PRN Reason: Pain Stop: 12/28/19 11:20 Naloxone HCl (Naloxone Hcl 0.4 Mg/1 Ml Vial/Carp) 0.1 mg IV Q5M PRN; Protocol PRN Reason: Oversedation/Resp Depression Stop: 12/23/19 06:19 Ondansetron HCl (Ondansetron Inj 2 Mg/Ml 2 Ml Vial) 4 mg IV Q6H PRN PRN Reason: Nausea Stop: 01/05/20 09:09 Ondansetron HCl (Ondansetron Inj 2 Mg/Ml 2 Ml Vial) 4 mg IV 4XDQ4H PRN PRN Reason: Nausea Stop: 01/07/20 14:17 Oxycodone/Acetaminophen (Oxycodone/Acetaminophen 5mg/325mg Tab) 1 tab PO Q4H PRN PRN Reason: Pain Stop: 12/28/19 11:10 Last Admin: 12/14/19 18:16 Dose: 1 tab Documented by: Resident Activity Tracking Resident Involvement: Resident Care Provided Care Provided: Adult Hospital Medicine (1) Hyperlipidemia Hyperlipidemia type: mixed hyperlipidemia Qualified Code(s): E78.2 - Mixed hyperlipidemia (2) Hypertension Hypertension type: essential hypertension Qualified Code(s): I10 - Essential (primary) hypertension
[2019-12-15] MEDS ORDERED: TPN IV SCH (16:00)
[2019-12-15] MEDS ORDERED: PERIPHERAL PN IV SCH (16:00)
[2019-12-16] MEDS: LORazepam 1 MG/2 ML VIAL IV PRN (00:28)
[2019-12-16] MEDS: AMPICILLIN/SULBACTAM SOD 3,000 MG in 0.9 % SODIUM CHLORIDE 100 ML IV SCH ×3 (05:33→17:45)
--- NOTE | 2019-12-16 06:11 | Surgery Progress Note ---
Date of Service December 16, 2019 Assessment & Plan (1) Peritonitis: Tolerating clear liquids Voiding on his own No nausea or vomiting Minimal LESLEY output Abdomen much less distended than 2 to 3 days ago We will continue PPN today Advance to full liquids Remove LESLEY drain and Lianne drain Possible discharge in 1 to 2 days depending on progress Admission and Anticipated Discharge Date Admission Date: December 06, 2019 Results & Data ([facility]) Vital Signs (Past 12 Hours) Vital Signs Temp Pulse Resp BP Pulse Ox 12/15/19 22:49 37.1 C 85 16 133/79 97 PG Care Time/CCT Total # of Minutes Spent Total Time Spent with Patient: Total time spent is greater than 50% in coordination of care (as documented) at patient's floor/unit and/or counseling patient: Coding Level of Care Code None Diagnoses Peritonitis K65.9
[2019-12-16 07:22] LABS: Basophils # (auto) 0.02 K/uL (0-0.2); Basophils % (auto) 0.2 %; Eosinophils # (auto) 0.26 K/uL (0-0.5); Hematocrit (blood only) 41.7 % (42-52); Immature Granulocytes # (auto) 0.55 K/uL (0.00-0.02); Immature Granulocytes % (auto) 4.1 %; Lymphocytes # (auto) 1.71 K/uL (1.2-3.4); Lymphocytes % (auto) 12.9 %; Mean Corpuscular Hemoglobin 31.5 pg (25-34); Mean Corpuscular Hgb Conc 33.6 g/dL (32-36); Mean Corpuscular Volume 93.9 fL (80-100); Mean Platelet Volume 9.5 fL (7.4-10.4); Monocytes # (auto) 1.06 K/uL (0.11-0.59); Neutrophils # (auto) 9.69 K/uL (1.4-6.5); Neutrophils % (auto) 72.8 %; Platelet Count 456 K/uL (130-400); RDW Coefficient of Variation 13.1 % (11.5-14.5); RDW Standard Deviation 44.9 fL (36.4-46.3); Red Blood Count 4.44 M/uL (4.7-6.1); White Blood Count 13.29 K/uL (4.8-10.8)
--- NOTE | 2019-12-16 07:51 | Hospitalist Progress Note ---
Date of Service December 16, 2019 Assessment & Plan (1) Diverticulitis of colon with perforation: 44 yo M PMHx HTN, MICH on CPAP admitted for diverticulitis with contained perforation. S/p laparotomy and bowel resection with generation of colostomy on 12/07. Diverticulitis w/ worsening perforation and pneumoperitoneum: - S/p laparotomy and bowel resection on 12/07. - Admission CT findings consistent with perforated acute sigmoid diverticulitis - Radiology report stated several locules of extraluminal gas with moderate pericolonic inflammation and fluid. - Stat CTAP 12/07 due to complaints of acute abdomen: - Progressive perforation of the acute sigmoid diverticulitis with pneumoperitoneum scattered throughout the abdomen and pelvis. - There was a 5.9 x 1.9 cm developing abscess within the left lower quadrant. - Patient had urgent surgery that day with bowel resection and colostomy. - KUB 12/10 demonstrated persistent small bowel distention with air also noted within the large bowel, with trace pneumoperitoneum. - Patient tolerating full liquids fairly well this AM, further increases over next several days and expect discharge home later this week. - Patient has continued to improve on IV Unasyn, continue while admitted and transition to PO Abx for discharge home. - General Surgery following and appreciate recommendations. HTN: - Continue home lisinopril. Hyperlipidemia: - Continue home atorvastatin. MICH: - Continue home CPAP. Code Status: FULL CODE FENGI: Full liquid, PPN for today to discontinue tomorrow DVT ppx: Lovenox 40mg daily Dispo: Med/Surg, for likely discharge later this week (2) Hyperlipidemia: (3) MICH (obstructive sleep apnea): (4) Hypertension: Admission and Anticipated Discharge Date Admission Date: December 06, 2019 Supervising Physician Co-Signing Physician Notes I personally examined the patient and verified all barnett points of history and exam, discussed case, and agree with decision making with Dr Dawn. feeling pretty well. tolerating PO well. having good GI througput. walking mcmillan lls without difficulty. vitals noted nad heent nc at mmm sitting upright in chair eating liquids. earlier seen walking multiple labs in lewis good smooth even fairly fast gait. heent nc at mmm breathing unlabored no accessory muscles good effort skin no rashes no pallor or icterus neuro no focal deficits sepsis related to perforated diverticulitis - improving, continue IV abx, supportive care. doing well. hopefully home soon. Subjective Patient without acute events overnight. Vitals stable and has been afebrile. This AM seen by Surgery and advanced to full liquid diet. Was eating his breakfast of Cream of Wheat during my interview and tolerating that without abdominal pain or nausea. No other symptoms overnight of fevers or chills, shor tness of breath, chest pain. Review of Systems Review of Systems: All systems reviewed & are unremarkable except as noted in Subjective Constitutional: no fever, no chills and no malaise Respiratory: no cough and no dyspnea Cardiovascular: no chest pain, no palpitations and no edema Gastrointestinal: + abdominal pain (at incision site); no nausea, no vomiting, no constipation and no diarrhea/loose stools Genitourinary: no dysuria and no hematuria Physical Exam Constitutional: WD/WN, vitals as above Eyes: PERRL, conjunctivae normal, anicteric sclerae Neck: normal visual inspection Respiratory: normal respiratory effort, lungs clear to auscultation Cardiovascular: Rate/Rhythm: regular rate and regular rhythm Heart Sounds: no gallop, no murmur and no cardiac rub Gastrointestinal (Abdomen): Inspection/Auscultation: abdomen not distended Percussion/Palpation: + abdomen tender (mildly at incision site only) and abdomen soft Skin: no rashes, warm and dry incision site clean dry and intact colostomy site pink and healthy appearing with soft formed stool in bag Psychiatric: Orientation: alert and oriented x 3 Results & Data Results & Data ([facility]) Vital Signs (Past 12 Hours) Vital Signs Temp Pulse Resp BP BP Pulse Ox 12/16/19 06:36 36.7 C 75 18 143/87 H 97 12/15/19 22:49 37.1 C 85 16 133/79 97 Resident Activity Tracking Resident Involvement: Resident Care Provided Care Provided: Adult Hospital Medicine (1) Hyperlipidemia Hyperlipidemia type: mixed hyperlipidemia Qualified Code(s): E78.2 - Mixed hyperlipidemia (2) Hypertension Hypertension type: essential hypertension Qualified Code(s): I10 - Essential (primary) hypertension
[2019-12-16 08:09] LABS: Calcium 8.9 mg/dl (8.5-10.1); Creatinine Clr Calc Pharmacy 116.4 ml/min; Est GFR (African American) 108.8; Est GFR (Non-African American) 93.9; Magnesium 2.4 mg/dl (1.8-2.4); Phosphorus 3.2 mg/dl (2.5-4.9)
[2019-12-16] MEDS: SENNOSIDES 8.8 MG/5 ML UDC PO SCH (08:47)
[2019-12-16] MEDS: lisinopril 10 MG TAB PO SCH (08:47)
[2019-12-16] MEDS: ENOXAPARIN INJ 40 MG/0.4 ML SYR SQ SCH (08:47)
--- NOTE | 2019-12-16 11:25 | Pharmacy Report ---
PHA: Parenteral Nutrition Con - Date of Service December 16, 2019 - Scope Pharmacy was consulted on 12/11/2019 to manage parenteral nutrition orders for this patient. - Subjective The patient is currently on day #6 of peripheral parenteral nutrition for ileus, poor GI function, and prolonged NPO. - Objective Height: 5 ft 11 in Weight: 101 kg Diet: Full Liquid Intake & Output (24hrs):: Intake & Output 12/14/19 12/15/19 12/16/19 12/17/19 06:59 06:59 06:59 06:59 Intake Total 2344 / 2344 3674 / 3674 0 / 2090 Output Total 2885 / 2885 2890 / 2890 3110 / 3110 475 / 475 Balance -541 / -541 784 / 784 -1020 / -1020 -475 / -475 Weight 101 kg Laboratory Data (Last 24 Hr):: 12/16/19 06:42 Sodium 137 Potassium 4.0 Chloride 105 Carbon Dioxide 25 BUN 19 H Creatinine 0.97 Glucose 107 H Calcium 8.9 Phosphorus 3.2 Magnesium 2.4 Nutrition Assessment:: Please refer to the Notes section of the EMR for the most recent head sulfide operator note. - Assessment 12/15: * Today is Day #6 of PPN. Patient's diet is being advanced to full liquid today. PPN is not recommended beyond 7 days of therapy. Discussed with attending and tentative plan would be to discontinue PPN tomorrow if patient tolerates full liquid diet. * Given PPN, macronutrients are limited due to osmolarity restrictions. Will continue with current macronutrients. * Electrolytes are stable so no changes necessary to micronutrients today. - Plan For day #6 of PPN administration, the following will be ordered: Macronutrients Amino acids 100 grams/day Dextrose 100 grams/day Lipids 50 grams/day Micronutrients Combined electrolytes 20 mL - contains 35 mEq Na, 20 meq K, 4.5 mEq Ca, 5 mEq Mg, 35 mEq Cl, 29.5 mEq acetate per 20 mL Sodium chloride 40 mEq Potassium phosphate 24 mMol Potassium acetate 10 mEq Multivitamins 10 mL Trace Elements 1 mL Total volume 1920 mL to be infused over 24 hrs will provide 1240 kcal/day Final osmolarity 898 mOsm/L (maximum for PPN is 900 mOsm/L) Labs, as indicated, will be ordered per protocol Pharmacy will continue to follow and adjust parenteral nutrition orders on a daily basis. Thank you for allowing us to participate in the care of this patient.
[2019-12-16] MEDS: PANTOprazole 40 MG in SYRINGE 0 ML IV SCH (11:42)
[2019-12-16] MEDS ORDERED: Custom Peripheral Pn 1,920 ML in TPN BAG 0 ML IV SCH (16:00)
--- NOTE | 2019-12-16 18:07 | Billing Data ---
Date of Service December 16, 2019 Coding Level of Care Code 11376 Subseq Hosp Care Lvl 2
[2019-12-17] MEDS: SENNOSIDES 8.8 MG/5 ML UDC PO SCH ×3 (00:06→21:26)
[2019-12-17] MEDS: AMPICILLIN/SULBACTAM SOD 3,000 MG in 0.9 % SODIUM CHLORIDE 100 ML IV SCH ×5 (01:02→23:15)
[2019-12-17] MEDS: LORazepam 1 MG/2 ML VIAL IV PRN ×2 (01:39→23:48)
[2019-12-17 06:28] LABS: Basophils # (auto) 0.04 K/uL (0-0.2); Basophils % (auto) 0.3 %; Eosinophils # (auto) 0.28 K/uL (0-0.5); Eosinophils % (auto) 1.8 %; Hemoglobin 13.9 g/dL (14.0-18.0); Immature Granulocytes # (auto) 0.47 K/uL (0.00-0.02); Immature Granulocytes % (auto) 3.1 %; Lymphocytes # (auto) 2.26 K/uL (1.2-3.4); Lymphocytes % (auto) 14.9 %; Mean Corpuscular Hemoglobin 31.7 pg (25-34); Mean Corpuscular Hgb Conc 33.9 g/dL (32-36); Mean Corpuscular Volume 93.4 fL (80-100); Mean Platelet Volume 9.8 fL (7.4-10.4); Monocytes # (auto) 1.09 K/uL (0.11-0.59); Monocytes % (auto) 7.2 %; Neutrophils # (auto) 11.03 K/uL (1.4-6.5); Neutrophils % (auto) 72.7 %; Platelet Count 467 K/uL (130-400); RDW Standard Deviation 44.6 fL (36.4-46.3); Red Blood Count 4.39 M/uL (4.7-6.1); White Blood Count 15.17 K/uL (4.8-10.8)
[2019-12-17 06:56] LABS: BUN Creatinine Ratio 19.8 (10-20); Calcium 8.8 mg/dl (8.5-10.1); Creatinine Clr Calc Pharmacy 114.1 ml/min; Est GFR (African American) 106.2; Est GFR (Non-African American) 91.6; Magnesium 2.3 mg/dl (1.8-2.4); Phosphorus 3.7 mg/dl (2.5-4.9); Potassium 4.4 mmol/L (3.5-5.1)
[2019-12-17] MEDS: lisinopril 10 MG TAB PO SCH (08:10)
[2019-12-17] MEDS: ENOXAPARIN INJ 40 MG/0.4 ML SYR SQ SCH (08:11)
--- NOTE | 2019-12-17 09:00 | Surgery Progress Note ---
Date of Service December 17, 2019 Assessment & Plan (1) Peritonitis: Patient seems to be tolerating his diet and has been advanced to low fiber He continues to be on PPN which we will stop later today Continue IV antibiotics for now Plan for discharge tomorrow on oral antibiotics and pain medication Patient to have a visiting nurse for stoma care and help Remove every other staple Admission and Anticipated Discharge Date Admission Date: December 06, 2019 Results & Data ([facility]) Vital Signs (Past 12 Hours) Vital Signs Temp Pulse Pulse Resp BP BP Pulse Ox 12/17/19 07:21 36.8 C 79 16 120/77 97 12/16/19 23:22 37.1 C 87 14 147/86 H 96 PG Care Time/CCT Total # of Minutes Spent Total Time Spent with Patient: Total time spent is greater than 50% in coordination of care (as documented) at patient's floor/unit and/or counseling patient: Coding Level of Care Code None Diagnoses Peritonitis K65.9
--- NOTE | 2019-12-17 09:18 | Hospitalist Progress Note ---
Date of Service December 17, 2019 Assessment & Plan (1) Diverticulitis of colon with perforation: 44 yo M PMHx HTN, MICH on CPAP admitted for diverticulitis with contained perforation. S/p laparotomy and bowel resection with generation of colostomy on 12/07. Diverticulitis w/ worsening perforation and pneumoperitoneum: - S/p laparotomy and bowel resection on 12/07. - Admission CT findings consistent with perforated acute sigmoid diverticulitis - Radiology report stated several locules of extraluminal gas with moderate pericolonic inflammation and fluid. - Stat CTAP 12/07 due to complaints of acute abdomen: - Progressive perforation of the acute sigmoid diverticulitis with pneumoperitoneum scattered throughout the abdomen and pelvis. - There was a 5.9 x 1.9 cm developing abscess within the left lower quadrant. - Patient had urgent surgery that day with bowel resection and colostomy. - KUB 12/10 demonstrated persistent small bowel distention with air also noted within the large bowel, with trace pneumoperitoneum. - Patient tolerating full liquids fairly well this AM, further increases over next several days and expect discharge home later this week. - Patient has continued to improve on IV Unasyn, continue while admitted and transition to PO Abx for discharge home tomorrow. - General Surgery following and appreciate recommendations; will have close follow up and wound care nursing visits at home. HTN: - Continue home lisinopril. Hyperlipidemia: - Continue home atorvastatin. MICH: - Continue home CPAP. Code Status: FULL CODE FENGI: Low fiber diet DVT ppx: Lovenox 40mg daily Dispo: Med/Surg, for likely discharge later this week (2) Hyperlipidemia: (3) MICH (obstructive sleep apnea): (4) Hypertension: Admission and Anticipated Discharge Date Admission Date: December 06, 2019 Supervising Physician Co-Signing Physician Notes I personally examined the patient and verified all barnett points of history and exam, discussed case, and agree with decision making with Dr Dawn. feeling good overall. hopeful on going home tomorrow vitals noted nad heent nc at mmm sitting upright in chair no distress. heent nc at mmm breathing unlabored no accessory muscles good effort skin no rashes no pallor or icterus neuro no focal deficits. abd soft nd nt no guarding sepsis related to perforated diverticulitis - improving, continue IV abx, supportive care. doing well. anticipate home tomorrow Subjective Patient without acute events overnight. Reports that his stools into his colostomy appear to be becoming less loose. No blood noted. No abdominal pain except at incision site. No nausea or vomiting, chest pain or SOB, fevers or chills. Review of Systems Review of Systems: All systems reviewed & are unremarkable except as noted in HPI & below Constitutional: no fever, no chills and no malaise Respiratory: no cough and no dyspnea Cardiovascular: no chest pain, no palpitations and no edema Gastrointestinal: no abdominal pain, no constipation and no diarrhea/loose stools Physical Exam Constitutional: WD/WN, vitals as above Eyes: PERRL, conjunctivae normal, anicteric sclerae Neck: normal visual inspection Respiratory: normal respiratory effort, lungs clear to auscultation Cardiovascular: Rate/Rhythm: regular rate and regular rhythm Heart Sounds: no gallop, no murmur and no cardiac rub Gastrointestinal (Abdomen): Inspection/Auscultation: abdomen not distended Percussion/Palpation: + abdomen tender (mildly at incision site only) and abdomen soft Skin: no rashes, warm and dry incision site clean dry and intact colostomy site pink and healthy appearing with soft formed stool in bag Psychiatric: Orientation: alert and oriented x 3 Results & Data Results & Data ([facility]) Vital Signs (Past 12 Hours) Vital Signs Temp Pulse Pulse Resp BP BP Pulse Ox 12/17/19 07:21 36.8 C 79 16 120/77 97 12/16/19 23:22 37.1 C 87 14 147/86 H 96 Resident Activity Tracking Resident Involvement: Resident Care Provided Care Provided: Adult Hospital Medicine (1) Hyperlipidemia Hyperlipidemia type: mixed hyperlipidemia Qualified Code(s): E78.2 - Mixed hyperlipidemia (2) Hypertension Hypertension type: essential hypertension Qualified Code(s): I10 - Essential (primary) hypertension
[2019-12-17] MEDS: PANTOprazole 40 MG in SYRINGE 0 ML IV SCH (12:21)
--- NOTE | 2019-12-17 18:34 | Billing Data ---
Date of Service December 17, 2019 Coding Level of Care Code 46541 Subseq Hosp Care Lvl 2
[2019-12-18] MEDS: AMPICILLIN/SULBACTAM SOD 3,000 MG in 0.9 % SODIUM CHLORIDE 100 ML IV SCH (05:52)
--- NOTE | 2019-12-18 06:14 | Surgery Progress Note ---
Date of Service December 18, 2019 Assessment & Plan (1) Peritonitis: Patient would like to go home Tolerating diet low fiber Drains have been removed Half iesha removed IV antibiotics continue-we will order Augmentin 875 twice daily sent to his pharmacy Also some pain med although he has not been taking much Discharge home if okay with medical team W we will have him come to the office next week for staple removal and wound check Admission and Anticipated Discharge Date Admission Date: December 06, 2019 Results & Data ([facility]) Vital Signs (Past 12 Hours) Vital Signs Temp Pulse Resp BP Pulse Ox 12/17/19 23:00 36.7 C 87 16 117/75 96 PG Care Time/CCT Total # of Minutes Spent Total Time Spent with Patient: Total time spent is greater than 50% in coordination of care (as documented) at patient's floor/unit and/or counseling patient: Coding Level of Care Code None Diagnoses Peritonitis K65.9
[2019-12-18 06:22] LABS: Basophils # (auto) 0.03 K/uL (0-0.2); Basophils % (auto) 0.2 %; Eosinophils # (auto) 0.34 K/uL (0-0.5); Eosinophils % (auto) 2.6 %; Hematocrit (blood only) 39.8 % (42-52); Hemoglobin 13.5 g/dL (14.0-18.0); Immature Granulocytes # (auto) 0.41 K/uL (0.00-0.02); Immature Granulocytes % (auto) 3.1 %; Lymphocytes % (auto) 16.1 %; Mean Corpuscular Hemoglobin 31.8 pg (25-34); Mean Corpuscular Hgb Conc 33.9 g/dL (32-36); Mean Corpuscular Volume 93.9 fL (80-100); Mean Platelet Volume 10.1 fL (7.4-10.4); Monocytes # (auto) 1.17 K/uL (0.11-0.59); Neutrophils # (auto) 9.01 K/uL (1.4-6.5); Platelet Count 491 K/uL (130-400); RDW Coefficient of Variation 13.2 % (11.5-14.5); RDW Standard Deviation 45.6 fL (36.4-46.3); Red Blood Count 4.24 M/uL (4.7-6.1); White Blood Count 13.06 K/uL (4.8-10.8)
[2019-12-18 06:59] LABS: BUN Creatinine Ratio 19.1 (10-20); Creatinine Clr Calc Pharmacy 100.4 ml/min; Est GFR (African American) 95.6; Est GFR (Non-African American) 82.5; Potassium 4.3 mmol/L (3.5-5.1)
[2019-12-18] MEDS: ENOXAPARIN INJ 40 MG/0.4 ML SYR SQ SCH (08:21)
[2019-12-18] MEDS: SENNOSIDES 8.8 MG/5 ML UDC PO SCH (08:21)
[2019-12-18] MEDS: lisinopril 10 MG TAB PO SCH (08:22)
--- NOTE | 2019-12-18 10:43 | Discharge Summary ---
Date of Service December 18, 2019 Admission HPI Per Admitting Provider Mr. Simmons is a 44 y/o male with a past medical history of HTN, HLD, MICH who presents with 24 hours of RLQ abdominal pain. He stated that yesterday morning he woke up with a sharp, 10/10 intermittent pain that he described as occurring behind his belt buckle and eventually spread to RLQ. His pain was increased with pressure and bearing down to urinate. He took Tylenol and Aleve PM but did not feel any improvement. The only similar pain he experienced that was similar was when he previously passed a kidney stone but he stated that unlike his current pain, that pain radiated to his back. He had one small episode of loose stool described as yellow and mucinous. He attempted to vomit to improve his pain but was unsuccessful. He denies any history of GI issues. He stated had a colonoscopy four years ago at age 40 due to early presentation of colon disease in his father, previous records were not able to be located. He stated that he felt it was normal. In the ED he had and EKG showing sinus tachycardia, CT imaging suggesting findings consistent with perforated acute sigmoid diverticulitis without abscesses. Several locules of extraluminal gas with moderate pericolonic inflammation and fluid. In addition bilateral nephrolithiasis w/o ureteral calculi. He was hemodynamically stable and labs suggesting a leukocytosis of 16. Admission Exam Per Admitting Provider Constitutional: Gentleman appears stated age, resting comfortably in bed. In no acute distress Eyes: PERRL, conjunctivae normal, anicteric sclerae ENMT: external ear and nose normal, oropharynx normal Respiratory: Lungs are clear to auscultation bilaterally, no wheezes, rales or rhonchi. Normal work of breathing. Cardiovascular: Regular rate and rhythm, no murmurs rubs or extra heart sounds. No peripheral edema. No JVD Gastrointestinal (Abdomen): Hypoactive bowel sounds throughout abdomen. Tender to palpation in RLQ, no rebound tenderness throughout abdomen. No hepatosplenomegaly. Musculoskeletal: no cyanosis or clubbing, extremities motor strength 5/5 Skin: no rashes, warm and dry Psychiatric: A+Ox3, euthymic affect Principal Diagnosis diverticulitis with perforation and abscess Discharge Exam Constitutional: WD/WN, vitals as above Eyes: PERRL, conjunctivae normal, anicteric sclerae Neck: normal visual inspection Respiratory: normal respiratory effort, lungs clear to auscultation Cardiovascular: Rate/Rhythm: regular rate and regular rhythm Heart Sounds: no gallop, no murmur and no cardiac rub Gastrointestinal (Abdomen): Inspection/Auscultation: abdomen not distended Percussion/Palpation: + abdomen tender (mildly at incision site only) and abdomen soft Skin: no rashes, warm and dry incision site clean dry and intact colostomy site pink and healthy appearing with soft formed stool in bag Psychiatric: Orientation: alert and oriented x 3 Discharge Data Allergies Allergy/AdvReac Type Severity Reaction Status Date / Time No Known Allergies Allergy Verified 12/06/19 06:19 Consultations 12/10/19 07:15 Consult Case Management - Discharge Planning Routine 12/12/19 06:35 Consult Infectious Diseases Routine Procedures Performed Operation Date: 12/08/19 08:50 Actual Procedures p Laparotomy , Bowel Resection(Not Applicable) - Nigel Gerard MD, FACS Ordered Studies 12/06/19 06:36 CT abd pelvis wo con Stat 12/08/19 08:26 CT abd pelvis IV con only Stat Hospital Course (1) Diverticulitis of colon with perforation: 44 yo M PMHx HTN, MICH on CPAP admitted for diverticulitis with contained perforation. S/p laparotomy and bowel resection with generation of colostomy on 12/07. Diverticulitis w/ worsening perforation and pneumoperitoneum: - S/p laparotomy and bowel resection on 12/07. - Admission CT findings consistent with perforated acute sigmoid diverticulitis - Radiology report stated several locules of extraluminal gas with moderate pericolonic inflammation and fluid. - Stat CTAP 12/07 due to complaints of acute abdomen: - Progressive perforation of the acute sigmoid diverticulitis with pneum operitoneum scattered throughout the abdomen and pelvis. - There was a 5.9 x 1.9 cm developing abscess within the left lower quadrant. - Patient had urgent surgery that day with bowel resection and colostomy. - KUB 12/10 demonstrated persistent small bowel distention with air also noted within the large bowel, with trace pneumoperitoneum. - Patient tolerating low fiber diet well for two days. - Patient continued to improve on IV Unasyn, have transitioned to Augmentin BID to continue for 10 more days. - General Surgery following and appreciate recommendations; will have close follow up and wound care nursing visits at home. HTN: - Continue home lisinopril. Hyperlipidemia: - Continue home atorvastatin. MICH: - Continue home CPAP. (2) Hyperlipidemia: (3) MICH (obstructive sleep apnea): (4) Hypertension: Total Time Total Time Spent Total Time Spent (In Minutes): <30 Discharge Plan Discharge Items Patient Disposition: Home - Home Health Services Reason For Visit: PERFORATED DIVERTICULITIS Discharge Diagnosis: perforated diverticulitis Activity: Per Instructions section Activity Comment: Light activity for 4 weeks Lifting: No more than 10 pounds Bathing Comment: May shower Sexual Activity: When tolerated Exercise Comment: Wait 4 weeks Driving/Machine Use: 1 week Weightbearing: Full weightbearing Non-emergency contact: Primary Care Provider and Surgeon Call non-emergency contact if: you have any medication questions, your pain is not controlled, your temperature is above 101, your wound has increased redness, your wound has increased drainage and your wound pain has increased Follow-up/Referrals: Frank Hanson MD [Primary Care Provider] - 12/23/19 10:30 am (APPT WITH [facility]) Nigel Gerard MD, FACS [Physician] - 12/25/19 11:00 am Diet: Low Fiber Addtl Attending Provider Instructions: You were admitted to the hospital for abdominal pain and found to have diverticulitis. You were started on IV fluids, pain medicine, and antibiotics. You developed worsening of your pain and imaging showed worsening of your abdominal infection. Dr. Gerard took you to surgery and performed-bowel resection and colostomy, and drainage of infection. You were continued on IV antibiotics for several days and continued to improve. You tolerated food and your labwork all improved, and you were felt to be safe for discharge home with the following recommendations: Augmentin was sent to your [facility] pharmacy. This is an oral antibiotic pill, that you take every 12 hours until the antibiotic is gone. You were also sent with some pain medication to take only as needed for severe pain. You can use ibuprof en/Aleve/Advil for mild to moderate pain. You will have follow up with General Surgery next week to remove your iesha and follow your progress. Next week, you should also follow with your primary care doctor to transition your care needs after discharge. If you have any worsening abdominal pain, vomiting, fevers over 100.4, chest pain, trouble breathing, please seek urgent medical evaluation. SPECIAL CARE INSTRUCTIONS BY SURGEON: * Cover incisions and change daily for comfort/drainage. * May use ibuprofen for pain as tolerated. Or similar e.g. Advil, Aleve * Expect some swelling and bruising. Call your doctor if: * Temperature above 101 degrees * Pain not relieved by pain medicine ordered * There is increased drainage or redness from any incision * You have any unanswered questions or concerns [phone]. FOLLOW UP VISIT: If not already scheduled, please call the office for a follow-up visit. For next weeksome staple removal and wound check OFFICE PHONE NUMBER: Dr. Gerard Office Pending Studies at Discharge: No Stand-Alone Forms: My [employer], Smoking Cessation Medications and DC Order Prescriptions: New hydrocodone-acetaminophen 5-325 mg tablet 1 - 2 tab PO Q6H PRN (Reason: pain) Qty: 30 RF: 0 amoxicillin-pot clavulanate [Augmentin] 875-125 mg tablet 1 tab PO BID Qty: 20 RF: 0 Continued acetaminophen [Tylenol Extra Strength] 500 mg Tablet 500 - 1,000 mg PO DIRECTED PRN (Reason: Pain) RF: 0 Aleve PM 220-25 mg Tablet 1 - 2 tab PO HS RF: 0 atorvastatin 20 mg tablet 20 mg PO QAM RF: 0 lisinopril 10 mg tablet 10 mg PO QAM RF: 0 Discharge Orders: Discharge Order (Routine); Ordered 12/18/19 Ordered By: Nigel Qureshi/Other Patient Handouts: Low-Fiber Diet, Diverticulosis Diverticulitis, Anatomy of the Digestive System Admission Data Admit Date/Time: 12/06/19 08:29 Attending Provider: Guillermo Kaiser Admit Provider: Guillermo Kaiser Primary Care Provider: Frank Hanson Other Providers: Roly Morris ; Valentín Baker ; Cresencio Rodriguez I. ; Sree Villalobos II ; Shanell Baez ; Shawn Bennett ; Steffi García ; [facility] Other Interventions: Discharge Summary Assessment (RN) Last Done: 12/18/19 11:46 Supervising Physician Co-Signing Physician Notes I personally examined the patient and verified all barnett points of history and exam, discussed case, and agree with decision making with Dr Dawn. feeling good overall. ready to go home. vitals noted nad heent nc at mmm sitting upright in chair no distress. heent nc at mmm breathing unlabored no accessory muscles good effort skin no rashes no pallor or icterus neuro no focal deficits. sepsis related to perforated diverticulitis - improving, stable for home on PO abx Resident Activity Tracking Resident Involvement: Resident Care Provided Care Provided: Adult Hospital Medicine
--- NOTE | 2019-12-18 17:58 | Billing Data ---
Date of Service December 18, 2019 Coding Level of Care Code D/C Day Management <30 mins
--- NOTE | 2019-12-31 08:42 | Coding Query ---
PRESENT ON ADMISSION QUERY To promote full compliance with coding requirements relating to pateint care, physician participation is requested in all cases of physician office nurse uncertainty. Please assist us with the question(s) below: Please place an X within the parenthesis (x). The following diagnosis listed in this patient's medical record require physician assistance to determine if they were present on admission (POA) or not. Please advise for each diagnosis whether it was present on admission, not present on admission, or if it was clinically undetermined. 1. SEPSIS (documentation begins on 12/08/19) ( x) Present On Admission ( ) Not Present On Admission ( ) Clinically Undetermined SIRS criteria on admission were WBC and HR. Thank you Renetta Fragoso *Definition of the present on admission (POA)-Present on admission is defined as present at the time the order for inpatient admission occurs. Conditions that develop during an outpatient encounter prior to a written order for inpatient admission (including emergency department, observation, or outpatient surgery) are considered present on admission. MICKEY
== END 2019-12-18 13:37 | disposition home health service (06) | DRG 854 ==
LOC: ED 05:55 → SUATTDRO 08:29 → 3N 08:29